=== PATIENT | male | born 1935 | race Caucasian/White ===

== ENCOUNTER 2017-09-28 12:58 | Inpatient (IN) ==
--- NOTE | 2017-09-28 13:17 | Emergency Department Note ---
Disposition Clinical Impression: Elevated troponin, Dizziness Hip fracture Qualifiers: Encounter type: initial encounter Fracture type: closed Laterality: right Qualified Code(s): S72.001A - Fracture of unspecified part of neck of right femur, initial encounter for closed fracture Disposition: Admitted As Inpatient Condition: Fair General Adult HPI - General Chief complaint: ED Fall Stated complaint: fall Time Seen by Provider: 09/28/17 13:03 Source: patient, EMS Limitations: no limitations Nursing Notes Reviewed: Yes Vital Signs Reviewed: Yes - History of Present Illness HPI Narrative: 8-year-old male presents to emergency department after having a spell of dizziness and falling. Patient states that he is chronically dizzy, and that this episode of dizziness was no different than what he has experienced in previous years. Patient states that it is worse with standing up. He denies a sensation of feeling as if the room is spinning. Patient does have a history of CHF dependent on pacemaker. Patient is currently complaining about right-sided hip pain. Patient states he cannot lift his right leg. Patient denies any dizziness at the present time. Pain Scale: 4 - Related Data Home Medications Medication Instructions Recorded Confirmed Aspirin 81 mg PO DAILY 09/28/17 09/28/17 Lisinopril [Zestril] 20 mg PO DAILY 09/28/17 09/28/17 Metoprolol Succinate [Metoprolol 25 mg PO DAILY 09/28/17 09/28/17 Succinate] Allergies Allergy/AdvReac Type Severity Reaction Status Date / Time No Known Allergies Allergy Verified 09/28/17 14:16 All systems ED: reviewed and negative except as stated. Review of Systems: As Per HPI Constitutional: Denies: fever Cardiovascular: Denies: chest pain, palpitations Gastrointestinal: Denies: abdominal pain, nausea, vomiting Genitourinary: Denies: urgency Neurological: Denies: headache Past Medical History - Past Medical History Medical history: Reports: arthritis, CHF, COPD, coronary artery disease Psychiatric history: Reports: no psych history - Social History Smoking Status: Current every day smoker Smokeless Tobacco Status: No Alcohol use: Reports: none Drug use: Reports: none Physical Exam General: 82-year-old male who appears to be mildly uncomfortable Head: autraumatic, EOMI, no conjuncitval pallor, no scleral icterus, Mouth: oral mucous membranes moist Neck: neck soft, trachea midline Chest:: Equal chest wall rise, pacemaker Lungs: Normal lungs sounds bilaterally, no wheezes, no respiratory distress Heart: Normal rate, no murmurs, rubs, gallops Abdomen: soft, non-tender, no rigidity, no guarding, no rebdound tenderness Pelvis: Tenderness to right sided pelvic compression. Patient unable to lift right leg. Lower Extremities: no pedal edema, calves non-tender Integumentary: Skin warm, dry, and intact Neuro: Alert and oriented to person, place, time, GCS 15, upper and lower extremities and sensation intact throughout, strength 5 out of 5 in the upper extremities and in the left lower extremity, patient strength is 3 out of 5 in the right lower extremity. Psych: normal affect, normal mood - General Limitations: no limitations General appearance: alert, in no apparent distress Course Vital Signs Temperature 98.1 F 09/28/17 13:01 Pulse Rate 73 09/28/17 13:01 Respiratory Rate 18 09/28/17 13:01 Blood Pressure 179/147 09/28/17 13:01 O2 Sat by Pulse Oximetry 93 09/28/17 13:01 Temperature 98.1 F 09/28/17 13:01 Pulse Rate 64 09/28/17 15:07 Respiratory Rate 16 09/28/17 15:07 Blood Pressure 194/97 09/28/17 15:07 O2 Sat by Pulse Oximetry 94 09/28/17 15:07 Oxygen Delivery Oxygen Delivery Nasal Cannula Medical Decision Making - [facility] Narrative Medical decision making narrative: 82-year-old male presents to the emergency department with concern for a hip fracture after falling. This was concerning for a hip fracture. Pelvis x-ray revealed an acute mildly displaced right subcapital femoral neck fracture. Head CT was also obtained and only revealed left parietal scalp subcutaneous density representing a contusion. Electrocardiogram did not feel any changes associated with scarbossa's criteria that would be concerning for [place]. Troponin was elevated at 0.12. Patient was hypertensive here in the emergency department, so we administered 10 mg Lopressor via IV. Dr. Hansen was consulted regarding the case and further recommendations and he wanted to have the patient admitted to the floor where he would schedule an operation. Dr. Hobbs was consulted as well with cardiology as patient had an elevated troponin of 0.12. He stated to trend the troponin. Troponin will be repeated at 1735. This study should be followed up. The case was discussed with the hospitalist, Dr. Rios. He agreed to admission for this patient. Patient and family were at bedside for discussion regarding admission. Patient was given analgesia here in the emergency department for his hip fracture. Head CT 09/28/17 13:09 IMPRESSION: 1. No acute intracranial abnormality. 2. Atrophy and extensive chronic small vessel ischemic changes. 3. Left parietal scalp subcutaneous density which may represent a contusion. D/ / 09/28/2017 15:08:19 Eloy Franco MD / Alice Borrego Interpreting Provider: Eloy Franco MD Pelvis X-Ray 09/28/17 13:12 IMPRESSION: Acute mildly displaced right subcapital femoral neck fracture. D/ / Bj Noble MD / Bj Noble MD Interpreting Provider: Bj Noble MD Chest X-Ray 09/28/17 13:26 IMPRESSION: No acute process. D/ / Bj Noble MD / Bj Noble MD Interpreting Provider: Bj Noble MD Vital Signs Temperature 98.1 F 09/28/17 13:01 Pulse Rate 73 09/28/17 13:01 Respiratory Rate 18 09/28/17 13:01 Blood Pressure 179/147 09/28/17 13:01 O2 Sat by Pulse Oximetry 93 09/28/17 13:01 Temperature 98.1 F 09/28/17 13:01 Pulse Rate 64 09/28/17 15:07 Respiratory Rate 16 09/28/17 15:07 Blood Pressure 194/97 09/28/17 15:07 O2 Sat by Pulse Oximetry 94 09/28/17 15:07 Oxygen Delivery Oxygen Delivery Nasal Cannula - Lab Data Result diagrams: 09/28/17 13:35 09/28/17 13:35 Lab Results 09/28/17 09/28/17 09/28/17 Range/Units 13:35 13:35 13:35 WBC 9.5 (4.3-11.1) K/mcL RBC 5.84 H (4.19-5.50) M/mcL Hgb 17.5 H (12.9-16.9) g/dL Hct 53.8 H (37.5-50.1) % MCV 92.1 (83.0-100.0) fL MCH 30.0 (28.0-33.3) pg MCHC 32.5 (31.6-35.5) g/dL RDW 13.7 (11.5-14.5) % Plt Count 246 (140-400) K/mcL MPV 10.2 (9.4-12.4) fL Immature Gran % 0.4 (0-4) % Seg Neutrophils % 75.0 % Lymphocytes % 12.0 % Monocytes % 8.8 % Eosinophils % 3.4 % Basophils % 0.4 % Neutrophils # 7.1 (1.6-8.9) K/mcL Lymphocytes # 1.1 (0.6-4.6) K/mcL Monocytes # 0.8 (0.0-1.3) K/mcL Eosinophils # 0.3 (0.0-0.6) K/mcL Basophils # 0.0 (0.0-0.2) K/mcL Sodium 141 (136-145) mEq/L Potassium 4.0 (3.5-4.5) mEq/L Chloride 106 (98-109) mEq/L Carbon Dioxide 23 (19-29) mEq/L BUN 17 (8-26) mg/dL Creatinine 1.04 (0.72-1.25) mg/dL Est GFR ( Amer) > 60 (> 60) Est GFR (Non-Af Amer) > 60 (> 60) BUN/Creatinine Ratio 16 (6-26) Glucose 85 (70-99) mg/dL POC Glucose (58-89) Calculated Osmolality 293 (280-300) Calcium 9.2 (8.6-10.8) mg/dL Troponin I 0.12 H* (0-0.03) ng/mL B-Natriuretic Peptide (0-100) pg/mL Urine Color (Yellow) Urine Clarity (Clear) Urine pH (5.0-8.0) pH Units Ur Specific [place] (1.010-1.025) Urine Protein (Neg-Trace) mg/dL Urine Glucose (UA) (Normal) mg/dL Urine Ketones (Negative) mg/dL Urine Blood (Negative) Urine Nitrite (Negative) Urine Bilirubin (Negative) Urine Urobilinogen (Normal) mg/dL Ur Leukocyte Esterase (Negative) Urine Microscopic RBC (0-3) per hpf Urine Microscopic WBC (0-3) per hpf Ur Squamous Epith Cells (None-Few) per lpf Urine Bacteria (None-Few) per hpf Hyaline Casts (None-Few) per lpf Ur Culture Indicated? (NO) 09/28/17 09/28/17 09/28/17 Range/Units 13:35 13:38 13:47 WBC (4.3-11.1) K/mcL RBC (4.19-5.50) M/mcL Hgb (12.9-16.9) g/dL Hct (37.5-50.1) % MCV (83.0-100.0) fL MCH (28.0-33.3) pg MCHC (31.6-35.5) g/dL RDW (11.5-14.5) % Plt Count (140-400) K/mcL MPV (9.4-12.4) fL Immature Gran % (0-4) % Seg Neutrophils % % Lymphocytes % % Monocytes % % Eosinophils % % Basophils % % Neutrophils # (1.6-8.9) K/mcL Lymphocytes # (0.6-4.6) K/mcL Monocytes # (0.0-1.3) K/mcL Eosinophils # (0.0-0.6) K/mcL Basophils # (0.0-0.2) K/mcL Sodium (136-145) mEq/L Potassium (3.5-4.5) mEq/L Chloride (98-109) mEq/L Carbon Dioxide (19-29) mEq/L BUN (8-26) mg/dL Creatinine (0.72-1.25) mg/dL Est GFR ( Amer) (> 60) Est GFR (Non-Af Amer) (> 60) BUN/Creatinine Ratio (6-26) Glucose (70-99) mg/dL POC Glucose 83 (58-89) Calculated Osmolality (280-300) Calcium (8.6-10.8) mg/dL Troponin I (0-0.03) ng/mL B-Natriuretic Peptide 712 H (0-100) pg/mL Urine Color Yellow (Yellow) Urine Clarity Clear (Clear) Urine pH 6.0 (5.0-8.0) pH Units Ur Specific [place] 1.015 (1.010-1.025) Urine Protein 30 H (Neg-Trace) mg/dL Urine Glucose (UA) Normal (Normal) mg/dL Urine Ketones Negative (Negative) mg/dL Urine Blood Small H (Negative) Urine Nitrite Negative (Negative) Urine Bilirubin Negative (Negative) Urine Urobilinogen Normal (Normal) mg/dL Ur Leukocyte Esterase Negative (Negative) Urine Microscopic RBC 3-5 H (0-3) per hpf Urine Microscopic WBC 0-3 (0-3) per hpf Ur Squamous Epith Cells Moderate H (None-Few) per lpf Urine Bacteria None Seen (None-Few) per hpf Hyaline Casts None Seen (None-Few) per lpf Ur Culture Indicated? NO (NO) - EKG Data EKG #1 EKG attestation: Yes I reviewed and interpreted this EKG. EKG results narrative: 13:09 Ventricular rate 62 bpm, QRS duration 204 ms, QT 473 ms, QTC 479 ms, left axis deviation. Electronic ventricle paced rhythm at 62 bpm. There was no paced rhythm on the previous electrocardiogram performed on February 28, 2010.
[2017-09-28 13:40] LABS: Basophils % 0.4 %; Eosinophils # 0.3 K/mcL (0.0-0.6); Eosinophils % 3.4 %; Hematocrit 53.8 % (37.5-50.1); Hemoglobin 17.5 g/dL (12.9-16.9); Immature Granulocytes % 0.4 % (0-4); Lymphocytes # 1.1 K/mcL (0.6-4.6); Mean Corpuscular HGB Conc 32.5 g/dL (31.6-35.5); Mean Corpuscular Volume 92.1 fL (83.0-100.0); Mean Platelet Volume 10.2 fL (9.4-12.4); Monocytes # 0.8 K/mcL (0.0-1.3); Monocytes % 8.8 %; Neutrophils # 7.1 K/mcL (1.6-8.9); Platelet Count 246 K/mcL (140-400); Red Blood Count 5.84 M/mcL (4.19-5.50); Red Cell Distribution Width 13.7 % (11.5-14.5)
[2017-09-28 13:51] LABS: BUN/Creatinine Ratio 16 (6-26); Blood Urea Nitrogen 17 mg/dL (8-26); Calcium 9.2 mg/dL (8.6-10.8); Carbon Dioxide 23 mEq/L (19-29); Chloride 106 mEq/L (98-109); Glucose 85 mg/dL (70-99); Osmolality,Calculated 293 (280-300); Sodium 141 mEq/L (136-145); eGFR For African Americans > 60 (> 60); eGFR For Non-African Americans > 60 (> 60)
[2017-09-28] MEDS ORDERED: *HR* Morphine 2 MG/ML SYRINGE IVP ONE ×2 (13:53→17:09)
[2017-09-28 13:57] LABS: Bilirubin,Urine Negative (Negative); Blood,Urine Small (Negative); Clarity,Urine Clear (Clear); Color,Urine Yellow (Yellow); Glucose,Urine (UA) Normal (Normal); Ketones,Urine Negative (Negative); Leukocyte Esterase,Urine Negative (Negative); Nitrite,Urine Negative (Negative); Protein,Urine 30 mg/dL (Neg-Trace); Specific Gravity,Urine 1.015 (1.010-1.025); Urobilinogen,Urine Normal (Normal)
[2017-09-28 13:59] LABS: Bacteria,Urine None Seen per hpf (None-Few); Hyaline Casts,Urine None Seen per lpf (None-Few); Squamous Epithelial Cell,Urine Moderate per lpf (None-Few); WBC,Urine 0-3 per hpf (0-3)
[2017-09-28] MEDS ORDERED: Aspirin 81 MG TAB.CHEW PO ONE (14:01)
--- NOTE | 2017-09-28 15:04 | Emergency Department Note ---
START Narrative - START START: I examined this patient and my medical decision-making was reviewed with the Resident Physician. I agree with the documented findings, disposition and treatment plan as described except to the extent set forth below. 82 year old male [facility] and states that he injured his right hip and cannot walk on it currently. Patinet states that he did not hit his head or neck and denies headache or neck pain. It appears roxana has an eelvated troponin of 0.12, and we do not have a value to compare it too in addition to an acute mildly displaced subcapital femoral neck fractre. We will admit to ana cristina neely consult to ortho.
[2017-09-28] MEDS ORDERED: *HR* Metoprolol 5 MG/5 ML VIAL IVP ONE (15:20)
[2017-09-28] MEDS ORDERED: Ondansetron 4 MG/2 ML VIAL IVP PRN (17:50)
[2017-09-28] MEDS ORDERED: Naloxone 0.4 MG/ML INJ IVP PRN (17:50)
[2017-09-28] MEDS ORDERED: *HR* HYDROcodone/Acet 5/325 mg TABLET PO PRN (17:50)
[2017-09-28] MEDS ORDERED: Acetaminophen 325 MG TABLET PO PRN (17:50)
[2017-09-28] MEDS ORDERED: Nitroglycerin 0.4 MG TAB.SUBL SL PRN (18:02)
--- NOTE | 2017-09-28 18:05 | Internal Med History&Physical ---
<Jax Martinez - Last Filed: 09/28/17 18:40> Date of Encounter: 09/28/17 Time of Encounter: 17:00 Assessment and Plan (1) Hip fracture Current visit: Yes Status: Acute Acute hip fracture d/t fall today. Pt. reports he has chronic dizziness and became dizzy today and fell on his right hip. 1-View XR of the pelvis today shows acute mildly displaced right subcapital femoral neck fracture. Bilateral sacroiliac joints and pubis symphysis are intact. Mild degenerative changes of the visualized lower lumbar spine. Stair-step pain medication ordered for pain mgmt. Falls/safety precautions. Bed rest for now. PT/OT consults ordered for post-surgery assessment and post-discharge planning. Orthopedic surgery consult ordered. Pt. is at high risk for further morbidity d/t hip fx, hx of dizziness and falls, elevated troponin, and risk factors. Inpatient. Qualifiers: Encounter type: initial encounter Fracture type: closed Laterality: right Qualified Code(s): S72.001A - Fracture of unspecified part of neck of right femur, initial encounter for closed fracture (2) Elevated troponin Current visit: Yes Status: Acute Acutely elevated troponin of 0.12 on admission. Pt. denies chest pain or cardiac sx. Pt. has electronic pacemaker in place. Will trend x3. Continuous cardiac telemetry. Cardiology consult ordered. Patient to be monitored closely. (3) Dizziness Current visit: Yes Status: Acute Acute on chronic dizziness. Pt. reports he is chronically dizzy and became dizzy today and fell hitting his right hip. Falls/safety precautions. Bilateral carotid Doppler duplex imaging ordered to r/o blockages d/t chronic dizziness. Continuous cardiac telemetry. Supplemental O2 and SpO2 monitoring. (4) CHF (congestive heart failure) Current visit: Yes Status: Chronic Hx of chronic CHF. BNP is currently 712 but pt. states he is not SOB, lungs clear on auscultation, pt. does not appear to be fluid overloaded, and no pedal edema present. Will administer lasix PO if necessary. Supplemental O2 w/ titration and SpO2 monitoring. Continuous cardiac telemetry. Qualifiers: Congestive heart failure type: unspecified congestive heart failure type Congestive heart failure chronicity: chronic Qualified Code(s): I50.9 - Heart failure, unspecified (5) COPD (chronic obstructive pulmonary disease) Current visit: Yes Status: Chronic Hx of chronic COPD. Stable. Pt. denies SOB. Supplemental O2 w/titration and SpO2 monitoring. DuoNebs Q6 PRN. Qualifiers: COPD type: emphysema Emphysema type: unspecified Qualified Code(s): J43.9 - Emphysema, unspecified (6) CAD (coronary artery disease) Current visit: Yes Status: Chronic Hx of chronic CAD. Continuous cardiac telemetry. Will continue patient's metoprolol, lisinopril, and aspirin therapy. Qualifiers: Coronary Disease-Associated Artery/Lesion type: [place] artery [place] vs. transplanted heart: [place] heart Associated angina: angina presence unspecified Qualified Code(s): I25.10 - Atherosclerotic heart disease of [place] coronary artery without angina pectoris (7) DVT prophylaxis Current visit: Yes Status: Acute Bilateral SCDs on LEs for DVT prophylaxis. Pharmacologic DVT prophylaxis contraindicated d/t possible surgical intervention for hip fx in a.m. Internal Medicine - H&P: HPI Chief complaint: Fall w/Rt. Hip Pain Admitted From: Emergency Dept Plans for Post Hospital Care: Home History of present illness: Mr. Sánchez is a 82 year old male with medical hx of arthritis, CHF, COPD, and CAD presents from the ED with chief complaint right hip pain after falling today. Patient states he became dizzy with standing and felt as though the room is spinning and fell. He states he cannot raise his right leg and his pain level is a 6/10. States morphine helped. He also reports he is chronically dizzy which is worsened over the past few years. Patient reports he is a current smoker smoking 1 pack per week and drinks beer occasionally. Also reports he is very hard of hearing. Patient denies recent illness, fever, chills , nausea, vomiting, changes in vision, unusual bleeding, chest pain, palpitations, abdominal pain, headache, diarrhea, constipation, numbness, tingling, pre-syncope, or syncope. Past Med Surg Social Fam HX - Past Medical History Source: patient, old records reviewed Medical history: arthritis, CHF, COPD, coronary artery disease Psychiatric history: no psych history - Social History Smoking Status: Current every day smoker Packs per day: 1 PPW Smokeless Tobacco Status: No Alcohol use: none Drug use: none Current living situation: Home Activity Level: Independent ambulation Recent Out of Country Travel Within the Last 8 Weeks: No Exposure or Possible Exposure to Illness During Travel: No - Family History Father Race: Family Member Ethnicity: Non- Living Status: Age at : 32 Cause of : Car Accident Mother Race: Family Member Ethnicity: Non- Living Status: Age at : 52 Cause of : Accident Brother Race: Family Member Ethnicity: Non- Living Status: Age at : 68 Cause of : ID Hx Family Cardiac Disorders: Yes (CAD, ID) Internal Medicine - H&P: Meds Aspirin 81 mg PO DAILY 09/28/17 [History] Lisinopril [Zestril] 20 mg PO DAILY 09/28/17 [History] Metoprolol Succinate [Metoprolol Succinate] 25 mg PO DAILY 09/28/17 [History] 3 Allergy/AdvReac Type Severity Reaction Status Date / Time No Known Allergies Allergy Verified 09/28/17 14:16 All Systems PM: A 10-system review of systems was performed and is negative for pertinent findings except as documented above in the HPI. - Constitutional Constitutional: as per HPI, falls, no chills, no fever(s), no night sweats - EENT Eyes: no change in vision, no discharge, no pain, no photophobia Ears: as per HPI, decreased hearing, no ear discharge, no ear pain, no tinnitus Nose, mouth and throat: no dysphagia, no nasal discharge, no neck pain, no sore throat - Breasts Breasts: as per HPI - Cardiovascular Cardiovascular ROS IM: no chest pain, no diaphoresis, no dyspnea, no lightheadedness, no palpitations, no syncope - Respiratory Respiratory: no cough, no dyspnea, no wheezing, no excessive phlegm production - Gastrointestinal Gastrointestinal: no abdominal pain, no diarrhea, no hematemesis, no hematochezia, no melena, no nausea, no vomiting - Genitourinary Genitourinary ROS male: as per HPI - Musculoskeletal Musculoskeletal ROS IM: no numbness, no tingling - Integumentary Integumentary IM: no rash, no unusual bruising - Neurological Neurological ROS: no confusion, no convulsions, no focal weakness, no numbness, no tingling, no tremor(s) - Psychiatric Psychiatric: as per HPI - Endocrine Endocrine IM: as per HPI - Hematologic/Lymphatic Hematologic/Lymphatic: no easy bruising - Allergic/Immunologic Allergic/Immunologic: as per HPI - Constitutional Vitals: Temp Pulse Resp BP Pulse Ox 98.6 F 71 16 184/86 96 09/28/17 16:25 09/28/17 16:25 09/28/17 16:25 09/28/17 16:25 09/28/17 16:25 General appearance: Present: cooperative, mild distress, A&O X 3, pleasant, answers questions appropriately - Head Head exam: Present: atraumatic, normal inspection, normocephalic - Eye Eye exam: Present: PERRL, conjuntiva pink, sclera anicteric Pupils: Present: PERRL - ENT ENT exam: Present: normal exam - Neck Neck exam general surgery: Present: normal inspection, supple, trachea midline. Absent: lymphadenopathy - Respiratory Respiratory exam: Present: CTAB. Absent: accessory muscle use, rales, rhonchi, wheezes - Cardiovascular Cardiovascular exam: Present: irregular rhythm (Electronic pacemaker) - GI/Abdominal GI/Abdominal exam: Present: normal bowel sounds, soft, no peritoneal signs. Absent: distended, tenderness - Rectal Rectal exam: Present: deferred - Additional comments: exam deferred. - Extremities Exam Extremities exam: Present: warm, radial pulses palpable and symmetrical. Absent : calf tenderness, cyanotic, pedal edema - Back Exam Back exam: Present: normal inspection - Neurological Exam Neurological exam: Present: CN II-XII intact, oriented X3, no focal deficits. Absent: pronater drift, facial droop, speech deficit - Psychiatric Psychiatric exam: Present: normal affect, normal mood - Skin Skin exam: Present: dry, intact Internal Med - H&P Results - Labs CBC & Chem 7: 09/28/17 13:35 09/28/17 13:35 - EKG Data Prior EKG available for review: yes EKG comments: 09/28/17 18:15 EKG dated 02/28/10 shows marked sinus bradycardia, left axis deviation, or RBBB left anterior fascicular block, possible old inferior myocardial infarction, lateral ST changes are nonspecific. EKG dated 09/28/17 shows electronic ventricular pacemaker and abnormal ECG. - Diagnostic Studies Other Images Additional comments: Impressions Pelvis X-Ray 09/28/17 13:12 IMPRESSION: Acute mildly displaced right subcapital femoral neck fracture. D/ / Bj Noble MD / Bj Noble MD Interpreting Provider: Bj Noble MD Chest x-ray Additional comments: Impressions Chest X-Ray 09/28/17 13:26 IMPRESSION: No acute process. D/ / Bj Noble MD / Bj Noble MD Interpreting Provider: Bj Noble MD CT scan - head Additional comments: Impressions Head CT 09/28/17 13:09 IMPRESSION: 1. No acute intracranial abnormality. 2. Atrophy and extensive chronic small vessel ischemic changes. 3. Left parietal scalp subcutaneous density which may represent a contusion. D/ / 09/28/2017 15:08:19 Eloy Franco MD / Alice Borrego Interpreting Provider: Eloy Franco MD <Hunter Smart P - Last Filed: 09/29/17 23:18> Date of Encounter: 09/29/17 Assessment and Plan (1) Subcapital fracture of neck of right femur Current visit: Yes Status: Acute Qualifiers: Encounter type: initial encounter Fracture type: closed Qualified Code(s) : S72.011A - Unspecified intracapsular fracture of right femur, initial encounter for closed fracture (2) Elevated troponin Current visit: Yes Status: Acute (3) HTN (hypertension) Current visit: Yes Status: Acute Qualifiers: Hypertension type: unspecified Qualified Code(s): I10 - Essential (primary ) hypertension (4) CAD (coronary artery disease) Current visit: Yes Status: Chronic Qualifiers: Coronary Disease-Associated Artery/Lesion type: [place] artery [place] vs. transplanted heart: [place] heart Associated angina: angina presence unspecified Qualified Code(s): I25.10 - Atherosclerotic heart disease of [place] coronary artery without angina pectoris (5) COPD (chronic obstructive pulmonary disease) Current visit: Yes Status: Chronic Qualifiers: COPD type: emphysema Emphysema type: unspecified Qualified Code(s): J43.9 - Emphysema, unspecified (6) DVT prophylaxis Current visit: Yes Status: Acute Internal Medicine - H&P: [facility] History of present illness: Mr. Sánchez is a 82 year old male All Systems PM: A 10-system review of systems was performed and is negative for pertinent findings except as documented above in the HPI. - Constitutional Vitals: Temp Pulse Resp BP Pulse Ox 97.4 F L 64 16 156/82 96 09/29/17 20:05 09/29/17 20:05 09/29/17 20:05 09/29/17 20:05 09/29/17 20:05 Internal Med - H&P Results - Labs CBC & Chem 7: 09/29/17 00:39 09/29/17 00:39 Labs: Short CBC 09/29/17 Range/Units 00:39 WBC 13.1 H (4.3-11.1) K/mcL Hgb 16.9 (12.9-16.9) g/dL Hct 51.1 H (37.5-50.1) % Plt Count 217 (140-400) K/mcL Neutrophils # 10.4 H (1.6-8.9) K/mcL BMP 09/29/17 00:39 Sodium 140 Potassium 4.2 Chloride 105 Carbon Dioxide 25 BUN 19 Creatinine 0.96 Glucose 95 Calcium 9.2 Cardiac Enzymes 09/29/17 09/29/17 Range/Units 00:39 05:43 Troponin I 0.14 H* 0.14 H* (0-0.03) ng/mL Liver Function 09/29/17 Range/Units 00:39 Total Bilirubin 2.8 H (0.2-1.2) mg/dL AST 25 (5-34) Units/L ALT 28 (0-55) Units/L Alkaline Phosphatase 97 (38-126) Units/L Albumin 3.3 L (3.5-5.0) g/dL - Impressions ITS Impressions Hip X-Ray 09/29/17 17:30 IMPRESSION: Uncomplicated right hip hemiarthroplasty. D/ / 09/29/2017 17:54:01 Ayan Page MD / chan Interpreting Provider: Ayna Page MD - Attending Attestation I examined this patient and my medical decision-making was reviewed with the Resident Physician/MEDICAL INTERN. I agree with the documented findings, disposition and treatment plan as described except to the extent set forth below. patient seen and examined. chart reviewed. agree with MEDICAL INTERN findings
[2017-09-28] MEDS ORDERED: Ipratropium/Albuterol Neb 3 ML IH PRN (18:27)
--- NOTE | 2017-09-28 21:11 | Orthopedic Consult Note ---
Date of Encounter: 09/28/17 Time of Encounter: 16:00 Assessment and Plan (1) Hip fracture Current Visit: Yes Status: Acute I did discuss the diagnosis and treatment plan with Florian and his family. We discussed operative and non-operative treatment options. He is a community ambulator who typically walks with a cane. For pain control and ambulation post operatively we recommended surgical fixation with hemiarthroplasty of the right hip. We discussed the risks and benefits of surgery including but not limited to infection, blood loss, failure of surgery, DVT, PE, CT, and . He understands the risks and has elected to proceed. NPO at [place] Plan for hip hemiarthroplasty tomorrow pending medical clearance Bedrest until surgery Qualifiers: Encounter type: initial encounter Fracture type: closed Laterality: right Qualified Code(s): S72.001A - Fracture of unspecified part of neck of right femur, initial encounter for closed fracture History of Present Illness Chief complaint: R hip pain HPI: Mr. Sánchez is a 82 year old male who sustained a mechanical fall on his right hip today. Developed right hip pain and inability to ambulate. Denies any CP or blacking out prior to fall. No other extremity pain. No N/T distally. Past Med Surg Social Fam HX - Past Medical History Medical history: arthritis, CHF, COPD, coronary artery disease Psychiatric history: no psych history - Past Surgical History Surgical History: pacemaker - Social History Smoking Status: Current every day smoker Packs per day: 1 PPW Smokeless Tobacco Status: No Alcohol use: none Drug use: none - Family History Father Race: Family Member Ethnicity: Non- Living Status: Age at : 32 Cause of : Car Accident Mother Race: Family Member Ethnicity: Non- Living Status: Age at : 52 Cause of : Accident Brother Race: Family Member Ethnicity: Non- Living Status: Age at : 68 Cause of : CT Hx Family Cardiac Disorders: Yes (CAD, CT) Medications and Allergies Aspirin 81 mg PO DAILY 09/28/17 [History] Lisinopril [Zestril] 20 mg PO DAILY 09/28/17 [History] Metoprolol Succinate [Metoprolol Succinate] 25 mg PO DAILY 09/28/17 [History] 3 Allergy/AdvReac Type Severity Reaction Status Date / Time No Known Allergies Allergy Verified 09/28/17 14:16 All Systems Reviewed: A 10-system review of systems was performed and is negative for pertinent findings except as documented above in the HPI. Physical Exam - Constitutional Vitals: Temp Pulse Resp BP Pulse Ox 99.3 F 64 17 160/72 94 09/28/17 19:39 09/28/17 19:39 09/28/17 19:39 09/28/17 19:39 09/28/17 19:39 General appearance IM: A&O X 3 Exam: Constitutional -Vitals reviewed -The patient is well developed and well nourished. -Mood is pleasant. -The patient is well groomed. Psychiatric -The patient is fully alert and oriented x 3. Respiratory: -Respiratory effort normal Abdomen: -Soft abdomen -Non tender -Non distended: Left upper extremity: -No deformities. The overlying skin is intact. No obvious signs of acute trauma. -No tenderness to palpation throughout. -No significant pain with passive motion of the shoulder, elbow, wrist, and fingers within the limits of the bed. -Able to make an "OK" sign, cross the index and long fingers, and extend the thumb. -Sensation grossly intact to light touch throughout the median, radial, and ulnar distributions. -Radial pulse is present; Fingers have good capillary refill. Right upper extremity: -No deformities. The overlying skin is intact. No obvious signs of acute trauma. -No tenderness to palpation throughout. -No significant pain with passive motion of the shoulder, elbow, wrist, and fingers within the limits of the bed. -Able to make an "OK" sign, cross the index and long fingers, and extend the thumb. -Sensation grossly intact to light touch throughout the median, radial, and ulnar distributions. -Radial pulse is present; Fingers have good capillary refill. Left lower extremity: -No deformities. The overlying skin is intact. No obvious signs of acute trauma. -No tenderness to palpation throughout. -No pain with passive motion of the hip, knee, ankle, and toes within the limits of the bed. -No pain with axial loading of the thigh. -Able to dorsiflex and plantarflex the ankle and toes. -Sensation is grossly intact to light touch throughout the sural, saphenous, superficial peroneal, and deep peroneal distributions. -Toes have good capillary refill. Right lower extremity: -Short/ER. +Log roll/IR -No pain with passive motion of the knee, ankle, and toes within the limits of the bed. -Able to dorsiflex and plantarflex the ankle and toes. -Sensation is grossly intact to light touch throughout the sural, saphenous, superficial peroneal, and deep peroneal distributions. -Toes have good capillary refill. Results - Labs Result Diagrams: 09/28/17 13:35 09/28/17 13:35 Labs: Abnormal lab results RBC 5.84 M/mcL (4.19-5.50) H 09/28/17 13:35 Hgb 17.5 g/dL (12.9-16.9) H 09/28/17 13:35 Hct 53.8 % (37.5-50.1) H 09/28/17 13:35 Troponin I 0.14 ng/mL (0-0.03) H* 09/28/17 18:07 B-Natriuretic Peptide 712 pg/mL (0-100) H 09/28/17 13:35 Urine Protein 30 mg/dL (Neg-Trace) H 09/28/17 13:47 Urine Blood Small (Negative) H 09/28/17 13:47 Urine Microscopic RBC 3-5 per hpf (0-3) H 09/28/17 13:47 Ur Squamous Epith Cells Moderate per lpf (None-Few) H 09/28/17 13:47 All other labs normal. - Diagnostic results Hip x-ray: image reviewed (Displaced R femoral neck fx) Consult Discharge Plan - Plan Referrals: Ethan Lam MD [Primary Care Provider] -
[2017-09-28] MEDS: *HR* Morphine 2 MG/ML SYRINGE IVP PRN (22:00)
[2017-09-29 00:51] LABS: Basophils % 0.3 %; Eosinophils # 0.3 K/mcL (0.0-0.6); Eosinophils % 2.5 %; Hematocrit 51.1 % (37.5-50.1); Hemoglobin 16.9 g/dL (12.9-16.9); Immature Granulocytes % 0.5 % (0-4); Immature Platelets 5.4 % (1.1-6.1); Lymphocytes % 7.8 %; Mean Corpuscular HGB Conc 33.1 g/dL (31.6-35.5); Mean Corpuscular Hemoglobin 30.7 pg (28.0-33.3); Mean Corpuscular Volume 92.7 fL (83.0-100.0); Mean Platelet Volume 10.2 fL (9.4-12.4); Monocytes # 1.2 K/mcL (0.0-1.3); Monocytes % 9.3 %; Neutrophils # 10.4 K/mcL (1.6-8.9); Platelet Count 217 K/mcL (140-400); Red Blood Count 5.51 M/mcL (4.19-5.50); Red Cell Distribution Width 13.8 % (11.5-14.5); Segmented Neutrophils % 79.6 %
[2017-09-29 00:55] LABS: INR 1.2; Prothrombin Time 13.5 Seconds (9.4-12.1)
[2017-09-29 01:04] LABS: Activated Partial Thrombo Time 31.6 Seconds (26.0-36.0)
[2017-09-29 01:08] LABS: Alanine Aminotransferase 28 Units/L (0-55); Albumin 3.3 g/dL (3.5-5.0); Alkaline Phosphatase 97 Units/L (38-126); Aspartate Amino Transferase 25 Units/L (5-34); BUN/Creatinine Ratio 20 (6-26); Blood Urea Nitrogen 19 mg/dL (8-26); Calcium 9.2 mg/dL (8.6-10.8); Carbon Dioxide 25 mEq/L (19-29); Chloride 105 mEq/L (98-109); Chol/HDL Ratio 3.1 (0-4.9); Cholesterol 151 mg/dL (< 200); Globulin 3.3 g/dL (2.4-3.5); Glucose 95 mg/dL (70-99); HDL Cholesterol 48 mg/dL (40-59); LDL Cholesterol,Calculated 88 mg/dL (0-99); Magnesium 2.1 mg/dL (1.6-2.6); Osmolality,Calculated 292 (280-300); Potassium 4.2 mEq/L (3.5-4.5); Sodium 140 mEq/L (136-145); Total Protein 6.6 g/dL (6.0-8.3); Triglycerides 74 mg/dL (< 150); eGFR For African Americans > 60 (> 60); eGFR For Non-African Americans > 60 (> 60)
[2017-09-29 01:09] LABS: Bilirubin,Total 2.8 mg/dL (0.2-1.2)
[2017-09-29] MEDS: *HR* Morphine 2 MG/ML SYRINGE IVP PRN ×2 (04:57→09:33)
--- NOTE | 2017-09-29 08:05 | Orthopedics Progress Note ---
Date of Encounter: 09/29/17 Time of Encounter: 08:02 - Assessment and Plan (1) Hip fracture Current Visit: Yes Status: Acute Qualifiers: Encounter type: initial encounter Fracture type: closed Laterality: right Qualified Code(s): S72.001A - Fracture of unspecified part of neck of right femur, initial encounter for closed fracture Subjective Principal diagnosis: R hip fracture Interval history: S: R hip pain. No new ortho complaints. No CP/SOB O: AFVSS GEN: NAD RLE: Short/ER +log roll/IR DNVI 82 yo M with R displaced FNFx -NPO -Plan for OR today for hemiarthroplasty -Bedrest until OR -Consent signed Objective Vital signs: Vital Signs Temp Pulse Resp BP Pulse Ox 09/29/17 06:23 98.6 F 96 18 137/83 98 09/29/17 04:08 98.6 F 58 18 155/78 94 09/29/17 00:26 98.7 F 79 18 109/74 94 09/28/17 19:39 99.3 F 64 17 160/72 94 Intake and Output 09/28/17 09/29/17 09/29/17 23:59 07:59 15:59 Output Total 250 / 250 Balance -250 / -250 Output: Urine 250 / 250 Other: Meal NPO # Voids 1 # Urine Diapers 1 1 # Bowel Movements 0 Weight 82.6 kg Blood Glucose* 94 Patient Weight 09/29/17 23:59 Weight 82.6 kg - Labs CBC & BMP: 09/29/17 00:39 09/29/17 00:39 Labs: Abnormal lab results WBC 13.1 K/mcL (4.3-11.1) H 09/29/17 00:39 RBC 5.51 M/mcL (4.19-5.50) H 09/29/17 00:39 Hct 51.1 % (37.5-50.1) H 09/29/17 00:39 Neutrophils # 10.4 K/mcL (1.6-8.9) H 09/29/17 00:39 PT 13.5 Seconds (9.4-12.1) H 09/29/17 00:39 POC Glucose 94 (58-89) H 09/29/17 05:19 Total Bilirubin 2.8 mg/dL (0.2-1.2) H 09/29/17 00:39 Troponin I 0.14 ng/mL (0-0.03) H* 09/29/17 05:43 B-Natriuretic Peptide 712 pg/mL (0-100) H 09/28/17 13:35 Albumin 3.3 g/dL (3.5-5.0) L 09/29/17 00:39 Albumin/Globulin Ratio 1.0 (1.1-2.2) L 09/29/17 00:39 Urine Protein 30 mg/dL (Neg-Trace) H 09/28/17 13:47 Urine Blood Small (Negative) H 09/28/17 13:47 Urine Microscopic RBC 3-5 per hpf (0-3) H 09/28/17 13:47 Ur Squamous Epith Cells Moderate per lpf (None-Few) H 09/28/17 13:47 Consult Discharge Plan - Plan Referrals: Ethan Lam MD [Primary Care Provider] -
[2017-09-29] MEDS ORDERED: Aspirin 81 MG TAB.CHEW PO SCH (09:00)
[2017-09-29] MEDS ORDERED: Lisinopril 20 MG TABLET PO SCH (09:00)
[2017-09-29] MEDS ORDERED: Metoprolol XL (24 HR) Succ 25 MG TAB.ER.24H PO SCH (09:00)
--- NOTE | 2017-09-29 11:15 | Cardiology Consult Note ---
Date of Encounter: 09/29/17 Time of Encounter: 08:30 Assessment and Plan (1) Elevated troponin Current Visit: Yes Status: Acute Elevated troponin in setting of fall without st segment signs of ischemia. P: Continue trending troponin to establish peak (currently x3 .14), telemetry. (2) Presence of cardiac pacemaker Current Visit: Yes Status: Acute Medtronic pacemaker (Versa [id number]) implanted 2009, dual-chamber Interrogation data: 96% pacing uptime, currently a-flutter, 2.5 years est remaining battery life (3) Systolic dysfunction Current Visit: Yes Status: Acute Echocardiogram performed 08/03/17 ordered by PCP due to murmur workup. LVEF 40-45% Abnormal regional wall motion; suggestive of mod-severe CAD. Mod-severe aortic stenosis P: LINNEA and cath in near future with [place] cardiology (4) Aortic stenosis Current Visit: Yes Status: Acute As above regarding echo results, recommend LINNEA for better resolution of valve/ leaflets Qualifiers: Cardiac valve disease etiology: nonrheumatic Qualified Code(s): I35.0 - Nonrheumatic aortic (valve) stenosis (5) Atrial flutter Current Visit: Yes Status: Acute Continue current beta-blockade. ECG suggests ventricular rate <75; maintain ventricular rate goal of <75, currently hemodynamically stable with normal pressures, no edema. Continue to monitor in-patient. Qualifiers: Atrial flutter type: unspecified Qualified Code(s): I48.92 - Unspecified atrial flutter (6) Subcapital fracture of neck of right femur Current Visit: Yes Status: Acute High risk patient based on existence of mod-severe aortic stenosis, systolic dysfunction EF 40-45%, inferio-lateral hypokinesis Estimated METs of 4 P: Recommend continuing ASA during procedure. Qualifiers: Encounter type: initial encounter Fracture type: closed Qualified Code(s) : S72.011A - Unspecified intracapsular fracture of right femur, initial encounter for closed fracture (7) CAD (coronary artery disease) Current Visit: Yes Status: Chronic Chronic condition, continue home meds. Likely contributor to wall motion abnormalities. P: Pt candidate for catheterization. Qualifiers: Coronary Disease-Associated Artery/Lesion type: [place] artery [place] vs. transplanted heart: [place] heart Associated angina: angina presence unspecified Qualified Code(s): I25.10 - Atherosclerotic heart disease of [place] coronary artery without angina pectoris (8) HTN (hypertension) Current Visit: Yes Status: Acute Continue metoprolol succinate and lisinopril. Indications for pt: a-flutter, bp control, kidney protection, cardioprotection. Qualifiers: Hypertension type: unspecified Qualified Code(s): I10 - Essential (primary ) hypertension (9) COPD (chronic obstructive pulmonary disease) Current Visit: Yes Status: Chronic Continue duonebs in-patient, nasal cannula 2L, ~94 saturation Consider smoking cessation. Qualifiers: COPD type: emphysema Emphysema type: unspecified Qualified Code(s): J43.9 - Emphysema, unspecified (10) DVT prophylaxis Current Visit: Yes Status: Acute Continue intermittent pneumatic compression. Discussion w patient/family: The assessment and plan as outlined above was discussed with the patient and/or family members who expressed understanding and agreement. All questions were answered. Thank you for involving us in the care of your patient. Please call with any questions. 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 Fall was witnessed, patient reports feeling dizzy after getting up, endorses room spinning, and subsequently falling. XR pelvis shows mild displaced femoral neck fracture. Consulted for elevated troponin of .12, .14, .14, .14. Patient is an assisted living resident, alert and oriented x3 however is a limited historian regarding cardiac history/does not have a director of healthcare systems/has not had a pacemaker interrogation since year of implantation. Patient denies loss of consciousness. Denies lightheadedness, head trauma, shortness of breath, or chest pain. Past Med Surg Social Fam HX - Past Medical History Medical history: arthritis, CHF, COPD, coronary artery disease Psychiatric history: no psych history - Past Surgical History Surgical History: pacemaker - Social History Smoking Status: Current every day smoker Packs per day: 1 PPW Smokeless Tobacco Status: No Alcohol use: none Drug use: none - Family History Father Race: Family Member Ethnicity: Non- Living Status: Age at : 32 Cause of : Car Accident Mother Race: Family Member Ethnicity: Non- Living Status: Age at : 52 Cause of : Accident Brother Race: Family Member Ethnicity: Non- Living Status: Age at : 68 Cause of : [place] Hx Family Cardiac Disorders: Yes (CAD, [place]) Medications and Allergies Aspirin 81 mg PO DAILY 09/28/17 [History] Lisinopril [Zestril] 20 mg PO DAILY 09/28/17 [History] Metoprolol Succinate [Metoprolol Succinate] 25 mg PO DAILY 09/28/17 [History] 3 Allergy/AdvReac Type Severity Reaction Status Date / Time No Known Allergies Allergy Verified 09/28/17 14:16 All Systems Review: A 10-system review of systems was performed and is negative for pertinent findings except as documented above in the HPI. - Constitutional Constitutional: other (single fall, dizziness on standing), no fever(s), no headache(s), no weakness - Cardiovascular Cardiovascular: lightheadedness (on standing), no chest pain at rest, no chest pain with exertion - Respiratory Respiratory: no cough, no dyspnea - Musculoskeletal Musculoskeletal: other (R leg pain s/p fall) - Neurological Neurological: no focal weakness, no numbness, no syncope, no tingling Physical Examination General: Conversant, Other (hard of hearing) HEENT: Atraumatic Neck: Other (no carotid bruits, no JVD, no thyromegaly) Cardiac: Other (irregular rhythm) Lungs: Other (normal chest wall excursion, no wheeze, rales, or rhonchi, clear bilaterally) Extremities: Other (intact dorsalis pedis pulses bilaterally, no edema, intact sensation) Results 09/29/17 00:39 09/29/17 00:39 Lab Results 09/28/17 09/29/17 09/29/17 18:07 00:39 00:39 WBC 13.1 H Hgb 16.9 Hct 51.1 H Plt Count 217 INR APTT Sodium Potassium Chloride Carbon Dioxide BUN Creatinine Glucose Calcium Magnesium Total Bilirubin AST ALT Alkaline Phosphatase Troponin I 0.14 H* 0.14 H* 09/29/17 09/29/17 09/29/17 00:39 00:39 05:43 WBC Hgb Hct Plt Count INR 1.2 APTT 31.6 Sodium 140 Potassium 4.2 Chloride 105 Carbon Dioxide 25 BUN 19 Creatinine 0.96 Glucose 95 Calcium 9.2 Magnesium 2.1 Total Bilirubin 2.8 H AST 25 ALT 28 Alkaline Phosphatase 97 Troponin I 0.14 H* Consult Discharge Plan - Plan Referrals: Ethan Lam MD [Primary Care Provider] -
--- NOTE | 2017-09-29 13:55 | Anesthesia Evaluation PreOp ---
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 Any Significant HX Other Medical History: Denies Any Significant HX Alcohol Use: none Drug use: none Medications and Allergies Aspirin 81 mg PO DAILY 09/28/17 [History] Lisinopril [Zestril] 20 mg PO DAILY 09/28/17 [History] Metoprolol Succinate [Metoprolol Succinate] 25 mg PO DAILY 09/28/17 [History] 3 Allergy/AdvReac Type Severity Reaction Status Date / Time No Known Allergies Allergy Verified 09/28/17 14:16 - Meds/Allergy Pre-op Review Medications Reviewed: Yes Allergies Reviewed: Yes Beta Blockers on Current Med List: Yes If Beta Blockers taken, Date/Time (Last Dose taken): 09:32 09/29/2017 Anesthesia Results - Labs 09/29/17 00:39 09/29/17 00:39 Echocardiogram Name: Florian Sánchez Date of Study: 08/03/2017 History Hypertension History of Smoking Years 60 Packs 0.5 Pacer/ICD Implant Mild LV systolic dysfunction, LVEF 40-45%. There are regional wall motion abnormalities, see diagram below. Mild concentric left ventricular hypertrophy. Mildly dilated right ventricle with normal systolic function. A device lead was visualized in the right atrium and right ventricle. Moderately calcified aortic valve leaflets with restricted leaflet motion. Cannot determine if bicuspid or tricuspid on this study. Probably moderate-severe aortic stenosis. Transvalvular gradients are only mild-moderately elevated, however, there is LV dysfunction and the calculated aortic valve area is in the severe range (although possibly underestimated due to poor LVOT VTI measurement). Mild aortic regurgitation. Consider LINNEA for further evaluation of the aortic valve if clinically indicated. Mild-moderate mitral regurgitation. Mild tricuspid regurgitation. Mild-moderate pulmonary hypertension. Estimated RVSP = 49 mmHg. Blood pressure was significantly elevated (182/94) at the time of this study. Abnormal results were communicated to the ordering physician via [employer] message. Cardiology consultation was recommended. Medtronic pacemaker (Versa [id number]) implanted 2009, dual-chamber Interrogation data: 96% pacing uptime, currently a-flutter, 2.5 years est remaining battery life - Imaging EKG: image reviewed (Electronic ventricular pacemaker) Chest x-ray: report reviewed ( EV/EV echocardiogram Impressions: Mild LV systolic dysfunction, LVEF 40-45%. There are regional wall motion abnormalities, see diagram below. Mild concentric left ventricular hypertrophy. Mildly dilated right ventricle with normal systolic function. A device lead was visualized in the right atrium and right ventricle. Moderately calcified aortic valve leaflets with restricted leaflet motion. Cannot determine if bicuspid or tricuspid on this study. Probably moderate-severe aortic stenosis. Transvalvular gradients are only mild-moderately elevated, however, there is LV dysfunction and the calculated aortic valve area is in the severe range (although possibly underestimated due to poor LVOT VTI measurement). Mild aortic regurgitation. Consider LINNEA for further evaluation of the aortic valve if clinically indicated. Mild-moderate mitral regurgitation. Mild tricuspid regurgitation. Mild-moderate pulmonary hypertension. Estimated RVSP = 49 mmHg. Blood pressure was significantly elevated (182/94) at the time of this study. Abnormal results were communicated to the ordering physician via [employer] message.) Anesthesia Exam O2 Sat Height 1.8 m Height 1.8 m Weight 82.6 kg Weight 83.915 kg O2 Sat by Pulse Oximetry 98 O2 Sat by Pulse Oximetry 94 O2 Sat by Pulse Oximetry 94 O2 Sat by Pulse Oximetry 94 O2 Sat by Pulse Oximetry 96 O2 Sat by Pulse Oximetry 94 O2 Sat by Pulse Oximetry 94 Vital Signs Temp Pulse Resp BP Pulse Ox 98.1 F 73 18 179/147 93 09/28/17 13:01 09/28/17 13:01 09/28/17 13:01 09/28/17 13:01 09/28/17 13:01 Vital Signs/O2 Sat, Most Current Temp Pulse Resp BP Pulse Ox 98.6 F 96 18 137/83 98 09/29/17 06:23 09/29/17 06:23 09/29/17 06:23 09/29/17 06:23 09/29/17 06:23 Height: 5'10'' Weight: 182# NPO (# of Hours): > 8 hrs Pain Scale: 0 Pain Scale Used: Numeric (1 - 10) - HEENT Pupil (Motor): Pupils equal, EOMI Mallampati: II Teeth: Poor dentition (severe tooth decay and loose) - 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
[2017-09-29] MEDS ORDERED: *HR* Phenylephrine 10 MG/ML VIAL ONE (13:58)
[2017-09-29] MEDS ORDERED: *HR* FentaNYL (PF) 100 MCG/2 ML VIAL ONE ×2 (14:05→15:44)
[2017-09-29] MEDS ORDERED: *HR* Propofol 200 MG/20 ML VIAL IVP ONE (14:05)
[2017-09-29] MEDS ORDERED: *HR* Succinylcholine 200 MG/10 ML VIAL IVP ONE (14:05)
[2017-09-29] MEDS ORDERED: Ethanol\\Acetic Acid\\Na Ace\\Ben 1,000 ML IRRIG.SOLN IR ONE (14:06)
[2017-09-29] MEDS ORDERED: Lidocaine -MPF 2% 2 ML VIAL ONE ×2 (14:07→14:40)
[2017-09-29] MEDS ORDERED: Lidocaine -MPF 4% 5 ML AMPUL ONE (14:08)
--- NOTE | 2017-09-29 14:12 | Electrocardiograph Report ---
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
[2017-09-29] MEDS ORDERED: Heparin 1,000 UNITS/500 mL NS 500 ML ONE (14:39)
--- NOTE | 2017-09-29 14:39 | History & Physical Report ---
Date of Encounter: 09/29/17 Time of Encounter: 14:39 24 Hour HP Update - Instructions Instructions: If the History and Physical is less than 30 days old and was completed prior to A.M. admission and or procedure and has NOT been updated on calendar day of procedure please complete this update prior to performing procedure. - Update Patient reports changes in Medical Condition: No Changes in examination, assessment, or condition: No Changes in Medication: No Preop tests/diagnostics Reviewed: Yes Surgery Remains Indicated: Yes Consent for Planned Operative Procedure(s) Verified: Yes
[2017-09-29] MEDS ORDERED: *HR* Etomidate 40 MG/20 ML VIAL IVP ONE (15:45)
[2017-09-29] MEDS ORDERED: Ondansetron 4 MG/2 ML VIAL ONE (15:52)
[2017-09-29] MEDS ORDERED: Dexamethasone 4 MG/ML VIAL ONE (15:52)
[2017-09-29] MEDS ORDERED: *HR* HYDROmorphone (PF) 1 MG/ML SYRINGE IVP PRN ×2 (16:17→18:05)
[2017-09-29] MEDS ORDERED: *HR* Promethazine 25 MG/ML VIAL IVP PRN ×2 (16:17→18:05)
[2017-09-29] MEDS ORDERED: *HR* Labetalol 20 MG/4 ML SYRINGE IVP PRN ×2 (16:23→18:05)
[2017-09-29] MEDS ORDERED: Acetaminophen IV 1,000 MG/100 ML INFUS..BTL ONE (16:28)
--- NOTE | 2017-09-29 17:37 | Anesthesia Evaluation Post Op ---
Date of Encounter: 09/29/17 Time of Encounter: 17:36 - Vital Signs Vital Signs: Vital Signs/O2 Sat, Most Current Temp Pulse Resp BP Pulse Ox 98.9 F 60 19 155/89 96 09/29/17 17:04 09/29/17 17:24 09/29/17 17:24 09/29/17 17:24 09/29/17 17:24 - Lungs Lungs: Clear Ascult./Percussion - Airway Airway: Non-obstructed - Cardiovascular Regular Rate - Mental Status Mental Status: Alert & Oriented, Answers Appropriately - Pain Pain Scale: 0 - Nausea Vomiting Nausea Vomiting: Not Present - Hydration Hydration: Tolerates oral liquids, Has not voided - Discharge PostOp Status: Transfer Patient to floor
--- NOTE | 2017-09-29 17:39 | Orthopedic Operative Note ---
Date of procedure: 09/29/17 Pre-op diagnosis: Right displaced femoral neck fracture Post-op diagnosis: same Procedure: 1. Right hip hemiarthroplasty INDICATIONS: This is a 82-year-old male who had a fall and sustained a right displaced femoral neck fracture. After discussing the procedure at length, and based on the patient's age and activity level, the patient elected for operative management with a right hip hemiarthroplasty. The risks and benefits of the procedure were fully explained. Those risks include but are not limited to, infection, neurovascular injury, continued pain, stiffness, further injury, need for further surgery, DVT, PE, loss of limb, and loss of life. The patient understood all of these risks and wished to proceed. Informed consent was obtained. No guarantees were stated or implied. OPERATIVE REPORT: The patient was identified in the holding area. The right lower extremity was marked, the patient was taken to the operating room and general anesthetic was administered on the hospital bed. The patients head, neck and airway were protected by anesthesia through the case. The patient was then transferred to the operating table and placed in the lateral position on a pegboard. All bony prominences were well padded. The right lower extremity was then prepped and draped in the normal manner. Preoperative antibiotics were given prior to incision. A surgical time out protocol was then performed. A posterior approach was made. Incision was made just posterior to the greater trochanter. Sharp dissection was carried through subcutaneous tissue down to the fascia, coagulating any skin bleeders. Fascia minesh and gluteus darlyn fascia were then incised. Darlyn fibers were digitally dissected and a Charnley retractor was placed. The hip was extended and internally rotated. A Cobra retractor was then placed over the ilium to retract the abductors anteriorly. Electrocautery was then used to release the piriformis and short external rotators and capsule from the posterior aspect of the hip joint and a full-thickness flap was created. This was tagged for later repair. The release was carried down distally to the level of the lesser trochanter. At this point the hip was dislocated and the femoral neck fracture was exposed. A saw was used to freshen up the femoral neck cut approximately 1 fingerbreadth above the lesser trochanter. The femoral head was removed with a corkscrew. The fractured neck fragments were removed with a ronguer. We then exposed the femur using a femoral elevator, and sequentially remained and broached the femur to appropriate size in accordance with the Biomet system. We seated a size 11 mm broach and did initial trial reductions up to a + 3 taper. We had good soft tissue tensioning and stable range of motion, with good reproduction of leg lengths. The trials were then removed and the femoral stem was placed. Trial reductions were repeated with a +3 taper and 56 mm head. Satisfied with the hip kinematics, we cleaned and dried the trunion and the final femoral head was impacted and the hip was reduced. We then did our final check of range of motion, stability and leg lengths. We then thoroughly irrigated the wound and closed the hip capsule with #1 ethibond. The piriformis tendon and external rotators were repaired through bone tunnels. Fascia minesh was closed with #1 ethibond and subcutaneous tissues with 2-0 strata fix. Skin was closed with 3-0 strata fix. We then placed sterile dressings the patient was awoken by anesthesia and transferred to PACU in stable condition. Patient tolerated the procedure well. Postop plan: The patient will be transferred back to the floor and will be weight-bearing as tolerated postop. Implants: Biomet 11x35 mm echo lateralized stem 56 mm Endo head +3 taper Complications: none Anesthesia: DORINA Surgeon: Lincoln Brar Estimated blood loss (cc): 100 Condition: stable Disposition: PACU
[2017-09-29] MEDS ORDERED: *HR* Morphine 2 MG/ML SYRINGE IVP PRN (18:05)
[2017-09-29] MEDS ORDERED: Acetaminophen 325 MG TABLET PO PRN (18:05)
[2017-09-29] MEDS ORDERED: Naloxone 0.4 MG/ML INJ IVP PRN ×2 (18:05)
[2017-09-29] MEDS ORDERED: Ondansetron 4 MG/2 ML VIAL IVP PRN (18:05)
[2017-09-29] MEDS ORDERED: Nitroglycerin 0.4 MG TAB.SUBL SL PRN (18:05)
[2017-09-29] MEDS ORDERED: Ipratropium/Albuterol Neb 3 ML IH PRN (18:05)
--- NOTE | 2017-09-29 19:31 | Internal Med Progress Note ---
Date of Encounter: 09/29/17 Time of Encounter: 19:31 - Assessment and plan (1) Subcapital fracture of neck of right femur Current Visit: Yes Status: Acute Assessment and plan: patient underwent surgery today post operative doing well not confused will follow recommendations from ortho Qualifiers: Encounter type: initial encounter Fracture type: closed Qualified Code(s) : S72.011A - Unspecified intracapsular fracture of right femur, initial encounter for closed fracture (2) Elevated troponin Current Visit: Yes Status: Acute Assessment and plan: adynamic flat troponin willfollow cardiac recommendations (3) HTN (hypertension) Current Visit: Yes Status: Acute Assessment and plan: with in acceptale range Qualifiers: Hypertension type: unspecified Qualified Code(s): I10 - Essential (primary ) hypertension (4) CAD (coronary artery disease) Current Visit: Yes Status: Chronic Assessment and plan: denies chest pain Qualifiers: Coronary Disease-Associated Artery/Lesion type: [place] artery [place] vs. transplanted heart: [place] heart Associated angina: angina presence unspecified Qualified Code(s): I25.10 - Atherosclerotic heart disease of [place] coronary artery without angina pectoris (5) COPD (chronic obstructive pulmonary disease) Current Visit: Yes Status: Chronic Assessment and plan: stable COPD Qualifiers: COPD type: emphysema Emphysema type: unspecified Qualified Code(s): J43.9 - Emphysema, unspecified (6) DVT prophylaxis Current Visit: Yes Status: Acute - Subjective Interval history: patient seen and examined chart reviewed. denies pain or SOB - Constitutional Vitals: Temp Pulse Resp BP Pulse Ox 97.6 F 65 14 173/73 94 09/29/17 18:00 09/29/17 18:30 09/29/17 18:30 09/29/17 18:30 09/29/17 18:30 General appearance: Present: cooperative, mild distress, A&O X 3, pleasant, answers questions appropriately - Head Head exam: Present: atraumatic, normocephalic - Eye Eye exam: Present: PERRL, conjuntiva pink, sclera anicteric Pupils: Present: PERRL - Neck Neck exam general surgery: Present: supple, trachea midline. Absent: lymphadenopathy - Respiratory Respiratory exam: Present: CTAB. Absent: accessory muscle use, rales, rhonchi, wheezes - Cardiovascular Cardiovascular exam: Present: RRR, +S1, +S2. Absent: diastolic murmur, gallop, rubs, systolic murmur - GI/Abdominal GI/Abdominal exam: Present: normal bowel sounds, soft, no peritoneal signs. Absent: distended, tenderness - Extremities Exam Extremities exam: Present: warm, radial pulses palpable and symmetrical. Absent : calf tenderness, cyanotic, pedal edema - Neurological Exam Neurological exam: Present: CN II-XII intact, oriented X3, no focal deficits. Absent: pronater drift, facial droop, speech deficit - Skin Skin exam: Present: dry, intact Internal Medicine: Result - Labs CBC & Chem 7: 09/29/17 00:39 09/29/17 00:39 Labs: Short CBC 09/29/17 Range/Units 00:39 WBC 13.1 H (4.3-11.1) K/mcL Hgb 16.9 (12.9-16.9) g/dL Hct 51.1 H (37.5-50.1) % Plt Count 217 (140-400) K/mcL Neutrophils # 10.4 H (1.6-8.9) K/mcL BMP 09/29/17 00:39 Sodium 140 Potassium 4.2 Chloride 105 Carbon Dioxide 25 BUN 19 Creatinine 0.96 Glucose 95 Calcium 9.2 Cardiac Enzymes 09/29/17 09/29/17 Range/Units 00:39 05:43 Troponin I 0.14 H* 0.14 H* (0-0.03) ng/mL Liver Function 09/29/17 Range/Units 00:39 Total Bilirubin 2.8 H (0.2-1.2) mg/dL AST 25 (5-34) Units/L ALT 28 (0-55) Units/L Alkaline Phosphatase 97 (38-126) Units/L Albumin 3.3 L (3.5-5.0) g/dL - ABG Interpretation ABG results: PT/INR, D-dimer PT 13.5 Seconds (9.4-12.1) H 09/29/17 00:39 - Impressions Impressions Hip X-Ray 09/29/17 17:30 IMPRESSION: Uncomplicated right hip hemiarthroplasty. D/ / 09/29/2017 17:54:01 Ayan Page MD / chan Interpreting Provider: Ayan Page MD - VTE Documentation of Mechanical Device: Venous foot pump, device Consult Discharge Plan - Plan Referrals: Ethan Lam MD [Primary Care Provider] -
[2017-09-30] MEDS: CeFAZolin Premix DUPLEX 2,000 MG/50 ML BAG IVPB SCH ×2 (00:30→08:15)
[2017-09-30 06:28] LABS: Basophils % 0.2 %; Eosinophils % 0.1 %; Hematocrit 52.1 % (37.5-50.1); Hemoglobin 16.6 g/dL (12.9-16.9); Immature Granulocytes % 0.3 % (0-4); Lymphocytes # 0.5 K/mcL (0.6-4.6); Lymphocytes % 3.4 %; Mean Corpuscular HGB Conc 31.9 g/dL (31.6-35.5); Mean Corpuscular Hemoglobin 29.7 pg (28.0-33.3); Mean Corpuscular Volume 93.4 fL (83.0-100.0); Mean Platelet Volume 10.7 fL (9.4-12.4); Monocytes # 1.3 K/mcL (0.0-1.3); Monocytes % 9.1 %; Neutrophils # 12.1 K/mcL (1.6-8.9); Platelet Count 210 K/mcL (140-400); Red Blood Count 5.58 M/mcL (4.19-5.50); Red Cell Distribution Width 14.3 % (11.5-14.5); Segmented Neutrophils % 86.9 %
[2017-09-30 06:41] LABS: Albumin/Globulin Ratio 0.8 (1.1-2.2); Bilirubin,Total 2.5 mg/dL (0.2-1.2); Calcium 9.3 mg/dL (8.6-10.8); Potassium 4.7 mEq/L (3.5-4.5)
[2017-09-30] MEDS: Aspirin 81 MG TAB.CHEW PO SCH (08:16)
[2017-09-30] MEDS: Lisinopril 20 MG TABLET PO SCH (08:16)
[2017-09-30] MEDS: Metoprolol XL (24 HR) Succ 25 MG TAB.ER.24H PO SCH (08:16)
--- NOTE | 2017-09-30 09:38 | Internal Med Progress Note ---
Date of Encounter: 09/30/17 Time of Encounter: 09:35 - Assessment and plan (1) Subcapital fracture of neck of right femur Current Visit: Yes Status: Acute Assessment and plan: Patient did tolerate right hip hemiarthroplasty on September 29 post operative doing well, pain is well controlled continue physical therapy Alert and oriented 3 will follow recommendations from ortho Qualifiers: Encounter type: initial encounter Fracture type: closed Qualified Code(s) : S72.011A - Unspecified intracapsular fracture of right femur, initial encounter for closed fracture (2) Elevated troponin Current Visit: Yes Status: Acute Assessment and plan: adynamic flat troponin, cardiology is on board, patient has CAD and abnormal echocardiogram may need a cardiac catheterization (3) CHF (congestive heart failure) Current Visit: Yes Status: Chronic Assessment and plan: Chronic systolic CHF well compensated EF 40-45%, cardiology recommended LINNEA and cath in near future with [place] [facility] Continue lisinopril and a beta Dago Qualifiers: Congestive heart failure type: unspecified congestive heart failure type Congestive heart failure chronicity: chronic Qualified Code(s): I50.9 - Heart failure, unspecified (4) COPD (chronic obstructive pulmonary disease) Current Visit: Yes Status: Chronic Assessment and plan: stable COPD, no home O2 no wheezing Qualifiers: COPD type: emphysema Emphysema type: unspecified Qualified Code(s): J43.9 - Emphysema, unspecified (5) CAD (coronary artery disease) Current Visit: Yes Status: Chronic Assessment and plan: denies chest pain Qualifiers: Coronary Disease-Associated Artery/Lesion type: [place] artery [place] vs. transplanted heart: [place] heart Associated angina: angina presence unspecified Qualified Code(s): I25.10 - Atherosclerotic heart disease of [place] coronary artery without angina pectoris (6) DVT prophylaxis Current Visit: Yes Status: Acute Assessment and plan: We will defer to orthopedic surgery (7) Atrial flutter Current Visit: Yes Status: Acute Assessment and plan: Heart rate is well controlled continue beta Dago Qualifiers: Atrial flutter type: unspecified Qualified Code(s): I48.92 - Unspecified atrial flutter (8) HTN (hypertension) Current Visit: Yes Status: Chronic Assessment and plan: with in acceptale range Qualifiers: Hypertension type: unspecified Qualified Code(s): I10 - Essential (primary ) hypertension (9) ARF (acute renal failure) Current Visit: Yes Status: Acute Assessment and plan: Acute and a failure postop, we will follow up creatinine daily try to avoid IV fluids due to CHF Qualifiers: Acute renal failure type: unspecified Qualified Code(s): N17.9 - Acute kidney failure, unspecified - Time Spent With Patient 25 - 35 minutes - Subjective Interval history: Patient is a 82 years of the gentleman was admitted on September 28 after fall, he sustained a right hip fracture, went to right hip hemiarthroplasty on September 29 was tolerant procedure very well pain is controlled. He is on room air, he denies chest pain shortness of breasts. He is very active marlene. Alert and oriented 3. We will continue physical therapy. - Constitutional Vitals: Temp Pulse Resp BP Pulse Ox 98.3 F 66 14 159/78 95 09/30/17 06:43 09/30/17 06:43 09/30/17 06:43 09/30/17 06:43 09/30/17 06:43 CONSTITUTIONAL: patient appears as an age appropriate male in no acute distress. EYES Clear sclerae, bilateral pupils are equal, reactive to light. EMOI. RESPIRATORY: No accessory muscle use, bilateral clear to auscultation, no wheezing, no crackles/rales. CARDIOVASCULAR: Regular heart rate, normal S1 and S2, no murmurs GASTROINTESTINAL: bowel sounds present, soft, no tenderness. MUSCULOSKELETAL: Joints in normal range of motion, no clubbing, no edema, no cyanosis. Bilateral peripheral pulses 2+. NEUROLOGIC: CN II to XII are grossly intact, no focal neurological deficit. General appearance: Present: cooperative, mild distress, A&O X 3, pleasant, answers questions appropriately Internal Medicine: Result - Labs CBC & Chem 7: 09/30/17 06:22 09/30/17 06:22 Labs: Short CBC 09/30/17 Range/Units 06:22 WBC 13.9 H (4.3-11.1) K/mcL Hgb 16.6 (12.9-16.9) g/dL Hct 52.1 H (37.5-50.1) % Plt Count 210 (140-400) K/mcL Neutrophils # 12.1 H (1.6-8.9) K/mcL BMP 09/30/17 06:22 Sodium 140 Potassium 4.7 H Chloride 103 Carbon Dioxide 28 BUN 29 H D Creatinine 1.44 H Glucose 119 H Calcium 9.3 Liver Function 09/30/17 Range/Units 06:22 Total Bilirubin 2.5 H (0.2-1.2) mg/dL AST 30 (5-34) Units/L ALT 21 (0-55) Units/L Alkaline Phosphatase 86 (38-126) Units/L Albumin 3.0 L (3.5-5.0) g/dL - ABG Interpretation ABG results: PT/INR, D-dimer PT 13.5 Seconds (9.4-12.1) H 09/29/17 00:39 - Impressions Impressions Hip X-Ray 09/29/17 17:30 IMPRESSION: Uncomplicated right hip hemiarthroplasty. D/ / 09/29/2017 17:54:01 Ayan Page MD / chan Interpreting Provider: Ayan Page MD - VTE Documentation of Mechanical Device: Venous foot pump, device Consult Discharge Plan - Plan Referrals: Ethan Lam MD [Primary Care Provider] -
[2017-09-30] MEDS: *HR* HYDROcodone/Acet 5/325 mg TABLET PO PRN ×2 (11:45→16:49)
--- NOTE | 2017-09-30 14:19 | Cardiology Progress Note ---
Date of Encounter: 09/30/17 Time of Encounter: 13:30 Assessment and Plan (1) Subcapital fracture of neck of right femur Current Visit: Yes Status: Acute Per cardiology: -S/p surgery. -States feels well today. -Management per primary and orthopedic services. Qualifiers: Encounter type: initial encounter Fracture type: closed Qualified Code(s) : S72.011A - Unspecified intracapsular fracture of right femur, initial encounter for closed fracture (2) Elevated troponin Current Visit: Yes Status: Acute Per cardiology: -Elevated troponin in setting of fall without st segment signs of ischemia. -Troponins flat and adynamic. -Recent TTE with cardiomyopathy and regional wall motion abnormalities. -Denies chest pain. -DO not suspect NSTEMI, suspect demand ischemia. No cardiac rehab warranted. -PLan for LHC prior to discharge due to new cardiomyopathy and regional wall motion abnormalities. (3) Presence of cardiac pacemaker Current Visit: Yes Status: Acute Per cardiology: -[employer] pacemaker (Versa [id number]) implanted 2009, dual-chamber -Interrogation data: 96% pacing uptime, currently a-flutter, 2.5 years est remaining battery life -Has had poor follow up after pacemaker implantation. (4) Systolic dysfunction Current Visit: Yes Status: Chronic Per cardiology: -Echocardiogram performed 08/03/17 ordered by PCP due to murmur workup. -LVEF 40-45%Abnormal regional wall motion. Mod-severe aortic stenosis -LINNEA and cath when ok by orthopedic services. (5) Atrial flutter Current Visit: Yes Status: Acute Per cardiology: -Continue current beta-blockade. -HRs controlled. -Agqrx5xmap score 3 (age, HTN). Recommend director long term care anticoagulation. Patient must be on coumadin due to moderate-severe . -Will decide regarding director long term care anticoagulation once ok with orthopedic services and pending invasive cardiac evaluation. Qualifiers: Atrial flutter type: unspecified Qualified Code(s): I48.92 - Unspecified atrial flutter (6) Aortic stenosis Current Visit: Yes Status: Acute Per cardiology: -MOderate-servere per TTE. -Euvolemic on exam -PLan for TTE prior to discharge. Qualifiers: Cardiac valve disease etiology: nonrheumatic Qualified Code(s): I35.0 - Nonrheumatic aortic (valve) stenosis Discussion w patient/family: The assessment and plan as outlined above was discussed with the patient who expressed understanding and agreement. All questions were answered. Thank you for involving us in the care of your patient. Please call with any questions. Discussed and reviewed with . Subjective Principal diagnosis: R hip fracture Interval history: Patient states he feels well this morning. Denies complaints. Objective Vital Signs Temperature 98.1 F 09/28/17 13:01 Pulse Rate 73 09/28/17 13:01 Respiratory Rate 18 09/28/17 13:01 Blood Pressure 179/147 09/28/17 13:01 O2 Sat by Pulse Oximetry 93 09/28/17 13:01 Temperature 97.8 F 09/30/17 10:02 Pulse Rate 71 09/30/17 10:02 Respiratory Rate 15 09/30/17 10:02 Blood Pressure 146/94 09/30/17 10:02 O2 Sat by Pulse Oximetry 94 09/30/17 10:02 Oxygen Delivery Oxygen Delivery Nasal Cannula General: Conversant, No Apparent Distress HEENT: Atraumatic, Normocephaly, Mucus Membranes Moist Neck: No JVD, Normal carotid pulses Cardiac: Other (Irregularly, irregular. Systolic murmur noted. ) Lungs: Normal Breath Sounds, No Wheeze, Rales, Rhonchi Neuro: Alert and responsive, No focal deficits noted Abdomen: Soft, Non-Tender Skin: No rashes noted on visualized skin Musculoskeletal: No Chest Wall Tenderness Extremities: No Clubbing, No Cyanosis, No Edema, Normal Pulses Results 09/30/17 06:22 09/30/17 06:22 Lab Results Impressions Hip X-Ray 09/29/17 17:30 IMPRESSION: Uncomplicated right hip hemiarthroplasty. D/ / 09/29/2017 17:54:01 Ayan Page MD / [email or web address] Interpreting Provider: Ayan Page MD Active Medications Acetaminophen (Tylenol) 650 mg PO Q6HR PRN PRN Reason: Mild Pain (1-3) Stop: 03/30/18 17:51 Hydrocodone Bitart/Acetaminophen ([place] 5-325 Mg) 1 tab PO Q4HR PRN PRN Reason: Moderate Pain (4-6) Stop: 03/30/18 17:51 Last Admin: 09/30/17 11:45 Dose: 1 tab Albuterol/Ipratropium (Duoneb) 3 ml IH [id number] PRN PRN Reason: Shortness Of Breath/Wheezing Stop: 03/30/18 18:28 Aspirin (Aspirin) 81 mg PO DAILY [facility] Stop: 03/31/18 09:01 Last Admin: 09/30/17 08:16 Dose: 81 mg Hydromorphone HCl (Dilaudid) 0.5 mg IVP Q5MIN PRN; Protocol PRN Reason: Pain Stop: 03/31/18 16:18 Labetalol HCl (Labetalol) 5 mg IVP Q5MIN PRN; Protocol PRN Reason: PACU - Hypertension Stop: 03/31/18 16:24 Lisinopril (Zestril) 20 mg PO DAILY [facility] PRN Reason: Protocol Stop: 03/31/18 09:01 Last Admin: 09/30/17 08:16 Dose: 20 mg Metoprolol Succinate (Toprol Xl) 25 mg PO DAILY [facility] Stop: 03/31/18 09:01 Last Admin: 09/30/17 08:16 Dose: 25 mg Morphine Sulfate (Morphine Sulfate) 2 mg IVP Q4HR PRN PRN Reason: Severe Pain (7-10) Stop: 03/30/18 17:51 Naloxone HCl (Narcan) 0.4 mg IVP Q2MIN PRN PRN Reason: SEE COMMENTS Stop: 03/31/18 18:06 Nitroglycerin (Nitroglycerin) 0.4 mg SL Q5MIN PRN PRN Reason: Chest Pain Stop: 03/30/18 18:03 Ondansetron HCl (Zofran) 4 mg IVP Q8HR PRN PRN Reason: Nausea And Vomiting Stop: 03/30/18 17:51 Last Admin: 09/29/17 19:00 Dose: 4 mg Promethazine HCl (Phenergan) 6.25 mg IVP Q5MIN PRN PRN Reason: Nausea And Vomiting Laboratory Tests 09/28/17 09/28/17 09/28/17 13:35 13:35 18:07 WBC Hgb Creatinine Troponin I 0.12 H* 0.14 H* B-Natriuretic Peptide 712 H 09/29/17 09/29/1717 00:39 00:39 05:43 WBC Hgb Creatinine 0.96 Troponin I 0.14 H* 0.14 H* B-Natriuretic Peptide 09/30/17 09/30/17 06:22 06:22 WBC 13.9 H Hgb 16.6 Creatinine 1.44 H Troponin I B-Natriuretic Peptide - Imaging and Cardiology Chest Xray: report reviewed Echo: report reviewed - EKG Interpretation EKG results cardiology: other (Telemetry reviewed with average HR previous 12 hours noted to be 67, atrial flutter with intermittent pacing noted. PVCs noted. ) - VTE Documentation of Mechanical Device: Venous foot pump, device Consult Discharge Plan - Plan Referrals: Ethan Lam MD [Primary Care Provider] -
--- NOTE | 2017-09-30 14:56 | Orthopedics Progress Note ---
Date of Encounter: 09/30/17 Time of Encounter: 09:00 - Assessment and Plan (1) Hip fracture Current Visit: Yes Status: Acute Qualifiers: Encounter type: initial encounter Fracture type: closed Laterality: right Qualified Code(s): S72.001A - Fracture of unspecified part of neck of right femur, initial encounter for closed fracture Subjective Principal diagnosis: R hip fracture Interval history: S: Doing well post op. No new ortho complaints. No CP/SOB. No f/c/ns. O: AFVSS GEN: NAD RLE: Dress c/d/i DNVI s/s/t/sp/dp Motor intact 82 yo M s/p R hip hemiarthroplasty -WBAT, up with PT -PO pain control and DVT prophylaxis per primary team Objective Vital signs: Vital Signs Temp Pulse Resp BP Pulse Ox 09/30/17 14:43 98.9 F 91 14 125/73 98 09/30/17 10:02 97.8 F 71 15 146/94 94 09/30/17 06:43 98.3 F 66 14 159/78 95 09/30/17 00:05 97.5 F L 66 18 114/70 93 09/29/17 20:05 97.4 F L 64 16 156/82 96 09/29/17 19:00 58 14 159/76 96 09/29/17 18:30 65 14 173/73 94 09/29/17 18:00 97.6 F 74 14 180/95 94 09/29/17 17:44 62 18 153/81 96 09/29/17 17:34 99.3 F 63 18 154/92 96 09/29/17 17:24 60 19 155/89 96 09/29/17 17:14 64 18 142/81 95 09/29/17 17:04 98.9 F 100 12 155/106 97 Intake and Output 09/29/17 09/30/17 09/30/17 23:59 07:59 15:59 Intake Total 450 / 450 170 / 170 Output Total 50 / 50 0 / 0 Balance -50 / -50 450 / 450 170 / 170 Intake: IV Fluids 50 / 50 50 / 50 Ancef Premix DUPLEX 2,000 mg In 50 / 50 50 / 50 50 ml @ 100 mls/hr IVPB Q8HR [facility] Rx#:[id number] Oral 400 / 400 120 / 120 Output: Urine 0 / 0 Estimated Blood Loss 50 / 50 Other: Meal npo # Voids 1 Blood Glucose* 141 - Labs CBC & BMP: 09/30/17 06:22 09/30/17 06:22 Labs: Abnormal lab results WBC 13.9 K/mcL (4.3-11.1) H 09/30/17 06:22 RBC 5.58 M/mcL (4.19-5.50) H 09/30/17 06:22 Hct 52.1 % (37.5-50.1) H 09/30/17 06:22 Neutrophils # 12.1 K/mcL (1.6-8.9) H 09/30/17 06:22 Lymphocytes # 0.5 K/mcL (0.6-4.6) L 09/30/17 06:22 PT 13.5 Seconds (9.4-12.1) H 09/29/17 00:39 Potassium 4.7 mEq/L (3.5-4.5) H 09/30/17 06:22 BUN 29 mg/dL (8-26) H D 09/30/17 06:22 Creatinine 1.44 mg/dL (0.72-1.25) H 09/30/17 06:22 Est GFR ( Amer) 57 (> 60) L 09/30/17 06:22 Est GFR (Non-Af Amer) 47 (> 60) L 09/30/17 06:22 Glucose 119 mg/dL (70-99) H 09/30/17 06:22 POC Glucose 141 (58-89) H 09/30/17 00:09 Total Bilirubin 2.5 mg/dL (0.2-1.2) H 09/30/17 06:22 Troponin I 0.14 ng/mL (0-0.03) H* 09/29/17 05:43 B-Natriuretic Peptide 712 pg/mL (0-100) H 09/28/17 13:35 Albumin 3.0 g/dL (3.5-5.0) L 09/30/17 06:22 Globulin 4.0 g/dL (2.4-3.5) H 09/30/17 06:22 Albumin/Globulin Ratio 0.8 (1.1-2.2) L 09/30/17 06:22 Urine Protein 30 mg/dL (Neg-Trace) H 09/28/17 13:47 Urine Blood Small (Negative) H 09/28/17 13:47 Urine Microscopic RBC 3-5 per hpf (0-3) H 09/28/17 13:47 Ur Squamous Epith Cells Moderate per lpf (None-Few) H 09/28/17 13:47 - VTE Documentation of Mechanical Device: Venous foot pump, device Consult Discharge Plan - Plan Additional Instructions: DISCHARGE INSTRUCTIONS Dr. Brar Total Hip Replacement/Hip Hemiarthroplasty Wound Care -Keep wound / incision area clean and dry. -Keep dressing on. -No baths or swimming until otherwise instructed. -After 14 days, you may begin to shower only if no drainage is present. No submerging the wound under standing water until cleared by your physician (no baths, hot tubs, swimming pools, etc). Sponge baths are the best way to perform personal hygiene while at the same time protecting the wound from moisture. -No scrubbing the wound. You may "pad dry" the wound, but do not rub, as this may open up he wound and pre-dispose to wound infection. -Do not apply lotions or creams to incision site, unless instructed otherwise. -Observe for redness, swelling, or drainage. Please call the clinic immediately if you have fevers, chills with warmth/redness surrounding wound site or if you notice pus drainage from the wound site Activity -No heavy lifting objects greater than 10 pounds. -No driving while on narcotic pain medication. -You may be weight-bear as tolerated on both of your lower extremities. -Use crutches or a walker for ambulation. -Posterior hip precautions for 6 weeks: No bending the hip past 90 degrees. Do not allow the leg to cross the midline of your body (adduction). No twisting motions. Ask your physical therapist to review these precautions with you. Reducing the Risk of Blood Clots -You will need to complete a total 4 week course of enteric coated aspirin 325 mg twice daily. -Wear knee high compression hose 23 hours per day. Discharge Pain Medications -You will be given a prescription for pain medication. Wean off as tolerated. Do not wait to take the pain medication until the pain is severe, as it will be difficult to "catch up" once this occurs. The pain medication usually reaches its full effect ~1 hour after ingesting. -Your prescribed pain medication may contain Tylenol. You must be careful not to exceed 4,000 mg (4 g) of Tylenol (or generic equivalent), from all sources, within a single 24-hour period. -Some common side effects of the narcotic pain medications (Percocet, Oxycodone , Vicodin, etc) include nausea and itching. Benadryl is a great over the counter medication that helps calm your stomach, decreases your anxiety levels, and minimizes the itching. You can easily purchase this at your local pharmacy as an wrhw-mvt-hmhhfiz medication. Please abide by the instructions as printed on t-he bottle. If your nausea persists, make sure to take small amounts of crackers or other wireless construction manager foods. [-Resume 50,000 units of vitamin D2 daily and 1200 mg of calcium supplementation per day.] Referrals: Ethan Lam MD [Primary Care Provider] -
--- NOTE | 2017-09-30 15:00 | Physician Discharge Referral ---
- Diagnosis (1) Hip fracture Status: Acute - Transfer Medications Home Medications: Aspirin 81 mg PO DAILY 09/28/17 [History] Lisinopril [Zestril] 20 mg PO DAILY 09/28/17 [History] Metoprolol Succinate [Metoprolol Succinate] 25 mg PO DAILY 09/28/17 [History] Allergies/Adverse Reactions: 3 Allergy/AdvReac Type Severity Reaction Status Date / Time No Known Allergies Allergy Verified 09/28/17 14:16 - Respiratory Orders Smoking Cessation: Smoking cessation has been advised. For more information, call the [place] Tobacco Quit Line at 2-912-QABX-NOW. - Rehabiliation Orders Rehab Orders: Evaluation for Physical Therapy, Evaluation for Occupational Therapy Other: DISCHARGE INSTRUCTIONS Dr. Brar Total Hip Replacement/Hip Hemiarthroplasty Wound Care -Keep wound / incision area clean and dry. -Keep dressing in place -No baths or swimming until otherwise instructed. -After 14 days, you may begin to shower only if no drainage is present. No submerging the wound under standing water until cleared by your physician (no baths, hot tubs, swimming pools, etc). Sponge baths are the best way to perform personal hygiene while at the same time protecting the wound from moisture. -No scrubbing the wound. You may "pad dry" the wound, but do not rub, as this may open up he wound and pre-dispose to wound infection. -Do not apply lotions or creams to incision site, unless instructed otherwise. -Observe for redness, swelling, or drainage. Please call the clinic immediately if you have fevers, chills with warmth/redness surrounding wound site or if you notice pus drainage from the wound site Activity -No heavy lifting objects greater than 10 pounds. -No driving while on narcotic pain medication. -You may be weight-bear as tolerated on both of your lower extremities. -Use crutches or a walker for ambulation. -Posterior hip precautions for 6 weeks: No bending the hip past 90 degrees. Do not allow the leg to cross the midline of your body (adduction). No twisting motions. Ask your physical therapist to review these precautions with you. Reducing the Risk of Blood Clots -You will need to complete a total 4 week course of enteric coated aspirin 325 mg twice daily. -Wear knee high compression hose 23 hours per day. Discharge Pain Medications -You will be given a prescription for pain medication. Wean off as tolerated. Do not wait to take the pain medication until the pain is severe, as it will be difficult to "catch up" once this occurs. The pain medication usually reaches its full effect ~1 hour after ingesting. -Your prescribed pain medication may contain Tylenol. You must be careful not to exceed 4,000 mg (4 g) of Tylenol (or generic equivalent), from all sources, within a single 24-hour period. -Some common side effects of the narcotic pain medications (Percocet, Oxycodone , Vicodin, etc) include nausea and itching. Benadryl is a great over the counter medication that helps calm your stomach, decreases your anxiety levels, and minimizes the itching. You can easily purchase this at your local pharmacy as an gyam-ume-lnmlubn medication. Please abide by the instructions as printed on t-he bottle. If your nausea persists, make sure to take small amounts of crackers or other data warehouse analyst foods. [-Resume 50,000 units of vitamin D2 daily and 1200 mg of calcium supplementation per day CERTIFICATION: I certify that the transfer of the above named patient to an Extended Care Facility is necessary for the continuing treatment of the diagnosis listed. The above information is true and accurate reflection of patient's current condition. Confidential - Redisclosure prohibited without a patient's written consent.
[2017-10-01 07:51] LABS: Basophils % 0.3 %; Eosinophils # 1.2 K/mcL (0.0-0.6); Eosinophils % 9.5 %; Hematocrit 49.1 % (37.5-50.1); Immature Granulocytes % 0.3 % (0-4); Lymphocytes # 1.3 K/mcL (0.6-4.6); Lymphocytes % 9.8 %; Mean Corpuscular HGB Conc 32.6 g/dL (31.6-35.5); Mean Corpuscular Hemoglobin 30.7 pg (28.0-33.3); Mean Corpuscular Volume 94.1 fL (83.0-100.0); Mean Platelet Volume 11.4 fL (9.4-12.4); Monocytes # 1.7 K/mcL (0.0-1.3); Monocytes % 13.1 %; Neutrophils # 8.5 K/mcL (1.6-8.9); Platelet Count 192 K/mcL (140-400); Red Blood Count 5.22 M/mcL (4.19-5.50); Red Cell Distribution Width 14.4 % (11.5-14.5)
--- NOTE | 2017-10-01 07:59 | Orthopedics Progress Note ---
Date of Encounter: 10/01/17 Time of Encounter: 07:57 - Assessment and Plan (1) Hip fracture Current Visit: Yes Status: Acute I did discuss the diagnosis and treatment plan with Florian and his family. We discussed operative and non-operative treatment options. He is a community ambulator who typically walks with a cane. For pain control and ambulation post operatively we recommended surgical fixation with hemiarthroplasty of the right hip. We discussed the risks and benefits of surgery including but not limited to infection, blood loss, failure of surgery, DVT, PE, IA, and . He understands the risks and has elected to proceed. NPO at [facility] Plan for hip hemiarthroplasty tomorrow pending medical clearance Bedrest until surgery Qualifiers: Encounter type: initial encounter Fracture type: closed Laterality: right Qualified Code(s): S72.001A - Fracture of unspecified part of neck of right femur, initial encounter for closed fracture Subjective Principal diagnosis: R hip fracture Interval history: S: Doing well post op. No new ortho complaints. No CP/SOB. No f/c/ns. O: AFVSS GEN: NAD RLE: Dress c/d/i DNVI s/s/t/sp/dp Motor intact 82 yo M s/p R hip hemiarthroplasty -WBAT, up with PT daily. -Posterior hip precautions -PO pain control and DVT prophylaxis per primary team -F/u in office in 10-14 days Objective Vital signs: Vital Signs Temp Pulse Resp BP Pulse Ox 10/01/17 02:01 97.7 F 62 16 151/92 93 09/30/17 21:04 97.9 F 60 17 134/74 92 09/30/17 14:43 98.9 F 91 14 125/73 98 09/30/17 10:02 97.8 F 71 15 146/94 94 Intake and Output 09/30/17 09/30/17 10/01/17 15:59 23:59 07:59 Intake Total 530 / 530 120 / 120 Output Total 225 / 225 0 / 0 Balance 530 / 530 -105 / -105 0 / 0 Intake: IV Fluids 50 / 50 Ancef Premix DUPLEX 2,000 mg In 50 / 50 50 ml @ 100 mls/hr IVPB Q8HR [facility] Rx#:[id number] Oral 480 / 480 120 / 120 Output: Urine 225 / 225 0 / 0 Other: Meal Breakfast Lunch Percent of Meal Consumed 50% # Voids 1 - Labs CBC & BMP: 10/01/17 07:01 09/30/17 06:22 Labs: Abnormal lab results WBC 12.7 K/mcL (4.3-11.1) H 10/01/17 07:01 Monocytes # 1.7 K/mcL (0.0-1.3) H 10/01/17 07:01 Eosinophils # 1.2 K/mcL (0.0-0.6) H 10/01/17 07:01 PT 13.5 Seconds (9.4-12.1) H 09/29/17 00:39 Potassium 4.7 mEq/L (3.5-4.5) H 09/30/17 06:22 BUN 29 mg/dL (8-26) H D 09/30/17 06:22 Creatinine 1.44 mg/dL (0.72-1.25) H 09/30/17 06:22 Est GFR ( Amer) 57 (> 60) L 09/30/17 06:22 Est GFR (Non-Af Amer) 47 (> 60) L 09/30/17 06:22 Glucose 119 mg/dL (70-99) H 09/30/17 06:22 POC Glucose 141 (58-89) H 09/30/17 00:09 Total Bilirubin 2.5 mg/dL (0.2-1.2) H 09/30/17 06:22 Troponin I 0.14 ng/mL (0-0.03) H* 09/29/17 05:43 B-Natriuretic Peptide 712 pg/mL (0-100) H 09/28/17 13:35 Albumin 3.0 g/dL (3.5-5.0) L 09/30/17 06:22 Globulin 4.0 g/dL (2.4-3.5) H 09/30/17 06:22 Albumin/Globulin Ratio 0.8 (1.1-2.2) L 09/30/17 06:22 Urine Protein 30 mg/dL (Neg-Trace) H 09/28/17 13:47 Urine Blood Small (Negative) H 09/28/17 13:47 Urine Microscopic RBC 3-5 per hpf (0-3) H 09/28/17 13:47 Ur Squamous Epith Cells Moderate per lpf (None-Few) H 09/28/17 13:47 - VTE Documentation of Mechanical Device: Venous foot pump, device Consult Discharge Plan - Plan Additional Instructions: DISCHARGE INSTRUCTIONS Dr. Brar Total Hip Replacement/Hip Hemiarthroplasty Wound Care -Keep wound / incision area clean and dry. -May remove dressing after 5 days and start daily dry dressing changes. -No baths or swimming until otherwise instructed. -After 14 days, you may begin to shower only if no drainage is present. No submerging the wound under standing water until cleared by your physician (no baths, hot tubs, swimming pools, etc). Sponge baths are the best way to perform personal hygiene while at the same time protecting the wound from moisture. -No scrubbing the wound. You may "pad dry" the wound, but do not rub, as this may open up he wound and pre-dispose to wound infection. -Do not apply lotions or creams to incision site, unless instructed otherwise. -Observe for redness, swelling, or drainage. Please call the clinic immediately if you have fevers, chills with warmth/redness surrounding wound site or if you notice pus drainage from the wound site Activity -No heavy lifting objects greater than 10 pounds. -No driving while on narcotic pain medication. -You may be weight-bear as tolerated on both of your lower extremities. -Use crutches or a walker for ambulation. -Posterior hip precautions for 6 weeks: No bending the hip past 90 degrees. Do not allow the leg to cross the midline of your body (adduction). No twisting motions. Ask your physical therapist to review these precautions with you. Reducing the Risk of Blood Clots -You will need to complete a total 4 week course of enteric coated aspirin 325 mg twice daily. -Wear knee high compression hose 23 hours per day. Discharge Pain Medications -You will be given a prescription for pain medication. Wean off as tolerated. Do not wait to take the pain medication until the pain is severe, as it will be difficult to "catch up" once this occurs. The pain medication usually reaches its full effect ~1 hour after ingesting. -Your prescribed pain medication may contain Tylenol. You must be careful not to exceed 4,000 mg (4 g) of Tylenol (or generic equivalent), from all sources, within a single 24-hour period. -Some common side effects of the narcotic pain medications (Percocet, Oxycodone , Vicodin, etc) include nausea and itching. Benadryl is a great over the counter medication that helps calm your stomach, decreases your anxiety levels, and minimizes the itching. You can easily purchase this at your local pharmacy as an hwgd-inn-bikqdsv medication. Please abide by the instructions as printed on t-he bottle. If your nausea persists, make sure to take small amounts of crackers or other wood cabinet finisher foods. [-Resume 50,000 units of vitamin D2 daily and 1200 mg of calcium supplementation per day.] Referrals: Ethan Lam MD [Primary Care Provider] -
[2017-10-01 08:14] LABS: Alanine Aminotransferase 12 Units/L (0-55); Albumin 2.8 g/dL (3.5-5.0); Albumin/Globulin Ratio 0.8 (1.1-2.2); Alkaline Phosphatase 82 Units/L (38-126); Aspartate Amino Transferase 30 Units/L (5-34); BUN/Creatinine Ratio 30 (6-26); Bilirubin,Total 1.9 mg/dL (0.2-1.2); Blood Urea Nitrogen 30 mg/dL (8-26); Calcium 8.8 mg/dL (8.6-10.8); Carbon Dioxide 27 mEq/L (19-29); Chloride 106 mEq/L (98-109); Globulin 3.7 g/dL (2.4-3.5); Glucose 80 mg/dL (70-99); Osmolality,Calculated 297 (280-300); Potassium 4.4 mEq/L (3.5-4.5); Sodium 141 mEq/L (136-145); Total Protein 6.5 g/dL (6.0-8.3); eGFR For African Americans > 60 (> 60); eGFR For Non-African Americans > 60 (> 60)
[2017-10-01] MEDS: Lisinopril 20 MG TABLET PO SCH (08:25)
[2017-10-01] MEDS: Aspirin 81 MG TAB.CHEW PO SCH (08:25)
[2017-10-01] MEDS: *HR* HYDROcodone/Acet 5/325 mg TABLET PO PRN ×2 (08:25→16:59)
[2017-10-01] MEDS: Metoprolol XL (24 HR) Succ 25 MG TAB.ER.24H PO SCH (08:25)
--- NOTE | 2017-10-01 15:15 | Cardiology Progress Note ---
Date of Encounter: 10/01/17 Time of Encounter: 14:00 Assessment and Plan (1) Subcapital fracture of neck of right femur Current Visit: Yes Status: Acute Per cardiology: -S/p surgery. -States feels well today. -Management per primary and orthopedic services. Qualifiers: Encounter type: initial encounter Fracture type: closed Qualified Code(s) : S72.011A - Unspecified intracapsular fracture of right femur, initial encounter for closed fracture (2) Elevated troponin Current Visit: Yes Status: Acute Per cardiology: -Elevated troponin in setting of fall without st segment signs of ischemia. -Troponins flat and adynamic. -Recent TTE with cardiomyopathy and regional wall motion abnormalities. -Denies chest pain. -DO not suspect NSTEMI, suspect demand ischemia. No cardiac rehab warranted. -PLan for C prior to discharge due to new cardiomyopathy and regional wall motion abnormalities. (3) Presence of cardiac pacemaker Current Visit: Yes Status: Acute Per cardiology: -[employer] pacemaker (Versa [id number]) implanted 2009, dual-chamber -Interrogation data: 96% pacing uptime, currently a-flutter, 2.5 years est remaining battery life -Has had poor follow up after pacemaker implantation. (4) Systolic dysfunction Current Visit: Yes Status: Chronic Per cardiology: -Echocardiogram performed 08/03/17 ordered by PCP due to murmur workup. -LVEF 40-45%Abnormal regional wall motion. Mod-severe aortic stenosis -LINNEA and cath when ok by orthopedic services. (5) Atrial flutter Current Visit: Yes Status: Acute Per cardiology: -Continue current beta-blockade. -HRs controlled. -[id number] score 3 (age, HTN). Recommend care home anticoagulation. Patient must be on coumadin due to moderate-severe . -Will decide regarding care home anticoagulation once ok with orthopedic services and pending invasive cardiac evaluation. Qualifiers: Atrial flutter type: unspecified Qualified Code(s): I48.92 - Unspecified atrial flutter (6) Aortic stenosis Current Visit: Yes Status: Acute Per cardiology: -MOderate-servere per TTE. -Euvolemic on exam -Will make NPO after midnight, plan for possible LINNEA in am. Qualifiers: Cardiac valve disease etiology: nonrheumatic Qualified Code(s): I35.0 - Nonrheumatic aortic (valve) stenosis Discussion w patient/family: The assessment and plan as outlined above was discussed with the patient who expressed understanding and agreement. All questions were answered. Thank you for involving us in the care of your patient. Please call with any questions. Discussed and reviewed with . Subjective Principal diagnosis: R hip fracture Interval history: Patient states he feels well this morning. Denies complaints. Denies chest pain or shortness of breath. Objective Vital Signs, Last 4 Hours Temp Pulse Resp BP Pulse Ox 10/01/17 14:00 98.6 F 79 14 120/75 97 10/01/17 12:00 98.5 F 73 16 127/69 96 General: Conversant, No Apparent Distress HEENT: Atraumatic, Normocephaly, Mucus Membranes Moist Neck: No JVD, Normal carotid pulses Cardiac: Normal S1 and S2, Other (Systolic murmur noted, irregularly irregular. ) Lungs: Normal Breath Sounds, No Wheeze, Rales, Rhonchi Neuro: Alert and responsive, No focal deficits noted Abdomen: Soft, Non-Tender Skin: No rashes noted on visualized skin Musculoskeletal: No Chest Wall Tenderness Extremities: No Clubbing, No Cyanosis, No Edema, Normal Pulses Results 10/01/17 07:01 10/01/17 07:01 Lab Results Active Medications Acetaminophen (Tylenol) 650 mg PO Q6HR PRN PRN Reason: Mild Pain (1-3) Stop: 03/30/18 17:51 Hydrocodone Bitart/Acetaminophen ([place] 5-325 Mg) 1 tab PO Q4HR PRN PRN Reason: Moderate Pain (4-6) Stop: 03/30/18 17:51 Last Admin: 10/01/17 08:25 Dose: 1 tab Albuterol/Ipratropium (Duoneb) 3 ml IH [id number] PRN PRN Reason: Shortness Of Breath/Wheezing Stop: 03/30/18 18:28 Aspirin (Aspirin) 81 mg PO DAILY [facility] Stop: 03/31/18 09:01 Last Admin: 10/01/17 08:25 Dose: 81 mg Hydromorphone HCl (Dilaudid) 0.5 mg IVP Q5MIN PRN; Protocol PRN Reason: Pain Stop: 03/31/18 16:18 Labetalol HCl (Labetalol) 5 mg IVP Q5MIN PRN; Protocol PRN Reason: PACU - Hypertension Stop: 03/31/18 16:24 Lisinopril (Zestril) 20 mg PO DAILY [facility] PRN Reason: Protocol Stop: 03/31/18 09:01 Last Admin: 10/01/17 08:25 Dose: 20 mg Metoprolol Succinate (Toprol Xl) 25 mg PO DAILY [facility] Stop: 03/31/18 09:01 Last Admin: 10/01/17 08:25 Dose: 25 mg Morphine Sulfate (Morphine Sulfate) 2 mg IVP Q4HR PRN PRN Reason: Severe Pain (7-10) Stop: 03/30/18 17:51 Naloxone HCl (Narcan) 0.4 mg IVP Q2MIN PRN PRN Reason: SEE COMMENTS Stop: 03/31/18 18:06 Nitroglycerin (Nitroglycerin) 0.4 mg SL Q5MIN PRN PRN Reason: Chest Pain Stop: 03/30/18 18:03 Ondansetron HCl (Zofran) 4 mg IVP Q8HR PRN PRN Reason: Nausea And Vomiting Stop: 03/30/18 17:51 Last Admin: 09/29/17 19:00 Dose: 4 mg Promethazine HCl (Phenergan) 6.25 mg IVP Q5MIN PRN PRN Reason: Nausea And Vomiting Laboratory Tests 10/01/17 10/01/17 07:01 07:01 WBC 12.7 H Hgb 16.0 Creatinine 1.01 - Imaging and Cardiology Chest Xray: report reviewed Echo: report reviewed - EKG Interpretation EKG results cardiology: other (Telemetry reviewed with average HR previous 12 hours noted to be 65, atrial flutter, paced.) - VTE Documentation of Mechanical Device: Venous foot pump, device Consult Discharge Plan - Plan Additional Instructions: DISCHARGE INSTRUCTIONS Dr. Brar Total Hip Replacement/Hip Hemiarthroplasty Wound Care -Keep wound / incision area clean and dry. -May remove dressing after 5 days and start daily dry dressing changes. -No baths or swimming until otherwise instructed. -After 14 days, you may begin to shower only if no drainage is present. No submerging the wound under standing water until cleared by your physician (no baths, hot tubs, swimming pools, etc). Sponge baths are the best way to perform personal hygiene while at the same time protecting the wound from moisture. -No scrubbing the wound. You may "pad dry" the wound, but do not rub, as this may open up he wound and pre-dispose to wound infection. -Do not apply lotions or creams to incision site, unless instructed otherwise. -Observe for redness, swelling, or drainage. Please call the clinic immediately if you have fevers, chills with warmth/redness surrounding wound site or if you notice pus drainage from the wound site Activity -No heavy lifting objects greater than 10 pounds. -No driving while on narcotic pain medication. -You may be weight-bear as tolerated on both of your lower extremities. -Use crutches or a walker for ambulation. -Posterior hip precautions for 6 weeks: No bending the hip past 90 degrees. Do not allow the leg to cross the midline of your body (adduction). No twisting motions. Ask your physical therapist to review these precautions with you. Reducing the Risk of Blood Clots -You will need to complete a total 4 week course of enteric coated aspirin 325 mg twice daily. -Wear knee high compression hose 23 hours per day. Discharge Pain Medications -You will be given a prescription for pain medication. Wean off as tolerated. Do not wait to take the pain medication until the pain is severe, as it will be difficult to "catch up" once this occurs. The pain medication usually reaches its full effect ~1 hour after ingesting. -Your prescribed pain medication may contain Tylenol. You must be careful not to exceed 4,000 mg (4 g) of Tylenol (or generic equivalent), from all sources, within a single 24-hour period. -Some common side effects of the narcotic pain medications (Percocet, Oxycodone , Vicodin, etc) include nausea and itching. Benadryl is a great over the counter medication that helps calm your stomach, decreases your anxiety levels, and minimizes the itching. You can easily purchase this at your local pharmacy as an umrp-ghx-jaytjax medication. Please abide by the instructions as printed on t-he bottle. If your nausea persists, make sure to take small amounts of crackers or other stone planer foods. [-Resume 50,000 units of vitamin D2 daily and 1200 mg of calcium supplementation per day.] Referrals: Ethan Lam MD [Primary Care Provider] -
--- NOTE | 2017-10-01 16:12 | Internal Med Progress Note ---
Date of Encounter: 10/01/17 Time of Encounter: 16:11 - Assessment and plan (1) Subcapital fracture of neck of right femur Current Visit: Yes Status: Acute Assessment and plan: Patient did tolerate right hip hemiarthroplasty on September 29 post operative doing well, pain is well controlled continue physical therapy Alert and oriented 3 -WBAT, up with PT daily. -Posterior hip precautions -F/u in office in 10-14 days possible rehab after cardaic cath Qualifiers: Encounter type: initial encounter Fracture type: closed Qualified Code(s) : S72.011A - Unspecified intracapsular fracture of right femur, initial encounter for closed fracture (2) Elevated troponin Current Visit: Yes Status: Acute Assessment and plan: adynamic flat troponin, cardiology is on board, patient has CAD and abnormal echocardiogram, cardiology is planing a cardiac catheterization tomorrow (3) CHF (congestive heart failure) Current Visit: Yes Status: Chronic Assessment and plan: Chronic systolic CHF well compensated EF 40-45%, cardiology recommended, cardiac cath tomorrow per patient discusssion Continue lisinopril and a beta Dago Qualifiers: Congestive heart failure type: unspecified congestive heart failure type Congestive heart failure chronicity: chronic Qualified Code(s): I50.9 - Heart failure, unspecified (4) COPD (chronic obstructive pulmonary disease) Current Visit: Yes Status: Chronic Assessment and plan: stable COPD, no home O2 no wheezing Qualifiers: COPD type: emphysema Emphysema type: unspecified Qualified Code(s): J43.9 - Emphysema, unspecified (5) CAD (coronary artery disease) Current Visit: Yes Status: Chronic Qualifiers: Coronary Disease-Associated Artery/Lesion type: [place] artery [place] vs. transplanted heart: [place] heart Associated angina: angina presence unspecified Qualified Code(s): I25.10 - Atherosclerotic heart disease of [place] coronary artery without angina pectoris (6) DVT prophylaxis Current Visit: Yes Status: Acute Assessment and plan: We will defer to orthopedic surgery (7) Atrial flutter Current Visit: Yes Status: Acute Assessment and plan: Heart rate is well controlled continue beta Dago Qualifiers: Atrial flutter type: unspecified Qualified Code(s): I48.92 - Unspecified atrial flutter (8) HTN (hypertension) Current Visit: Yes Status: Chronic Assessment and plan: with in acceptale range Qualifiers: Hypertension type: unspecified Qualified Code(s): I10 - Essential (primary ) hypertension (9) ARF (acute renal failure) Current Visit: Yes Status: Acute Assessment and plan: Acute and a failure postop, Cr trending down, try to avoid IV fluids due to CHF Qualifiers: Acute renal failure type: unspecified Qualified Code(s): N17.9 - Acute kidney failure, unspecified - Time Spent With Patient 25 - 35 minutes - Subjective Interval history: Patient is a 82 years of the gentleman was admitted on September 28 after fall, he sustained a right hip fracture, went to right hip hemiarthroplasty on September 29 was tolerant procedure very well pain is controlled. He is on room air, he denies chest pain shortness of breasts. He is very active marlene. Alert and oriented 3. We will continue physical therapy. Patient is doing well, overnight no events. He is waiting for cardiac cast tomorrow. - Constitutional Vitals: Temp Pulse Resp BP Pulse Ox 98.6 F 79 14 120/75 97 10/01/17 14:00 10/01/17 14:00 10/01/17 14:00 10/01/17 14:00 10/01/17 14:00 CONSTITUTIONAL: patient appears as an age appropriate male in no acute distress. EYES Clear sclerae, bilateral pupils are equal, reactive to light. EMOI. RESPIRATORY: No accessory muscle use, bilateral clear to auscultation, no wheezing, no crackles/rales. CARDIOVASCULAR: Regular heart rate, normal S1 and S2, no murmurs GASTROINTESTINAL: bowel sounds present, soft, no tenderness. MUSCULOSKELETAL: Joints in normal range of motion, no clubbing, no edema, no cyanosis. Bilateral peripheral pulses 2+. NEUROLOGIC: CN II to XII are grossly intact, no focal neurological deficit. General appearance: Present: cooperative, mild distress, A&O X 3, pleasant, answers questions appropriately Internal Medicine: Result - Labs CBC & Chem 7: 10/01/17 07:01 10/01/17 07:01 Labs: Short CBC 10/01/17 Range/Units 07:01 WBC 12.7 H (4.3-11.1) K/mcL Hgb 16.0 (12.9-16.9) g/dL Hct 49.1 (37.5-50.1) % Plt Count 192 (140-400) K/mcL Neutrophils # 8.5 (1.6-8.9) K/mcL BMP 10/01/17 07:01 Sodium 141 Potassium 4.4 Chloride 106 Carbon Dioxide 27 BUN 30 H Creatinine 1.01 Glucose 80 Calcium 8.8 Liver Function 10/01/17 Range/Units 07:01 Total Bilirubin 1.9 H (0.2-1.2) mg/dL AST 30 (5-34) Units/L ALT 12 (0-55) Units/L Alkaline Phosphatase 82 (38-126) Units/L Albumin 2.8 L (3.5-5.0) g/dL - ABG Interpretation ABG results: PT/INR, D-dimer PT 13.5 Seconds (9.4-12.1) H 09/29/17 00:39 - VTE Documentation of Mechanical Device: Venous foot pump, device Consult Discharge Plan - Plan Additional Instructions: DISCHARGE INSTRUCTIONS Dr. Brar Total Hip Replacement/Hip Hemiarthroplasty Wound Care -Keep wound / incision area clean and dry. -May remove dressing after 5 days and start daily dry dressing changes. -No baths or swimming until otherwise instructed. -After 14 days, you may begin to shower only if no drainage is present. No submerging the wound under standing water until cleared by your physician (no baths, hot tubs, swimming pools, etc). Sponge baths are the best way to perform personal hygiene while at the same time protecting the wound from moisture. -No scrubbing the wound. You may "pad dry" the wound, but do not rub, as this may open up he wound and pre-dispose to wound infection. -Do not apply lotions or creams to incision site, unless instructed otherwise. -Observe for redness, swelling, or drainage. Please call the clinic immediately if you have fevers, chills with warmth/redness surrounding wound site or if you notice pus drainage from the wound site Activity -No heavy lifting objects greater than 10 pounds. -No driving while on narcotic pain medication. -You may be weight-bear as tolerated on both of your lower extremities. -Use crutches or a walker for ambulation. -Posterior hip precautions for 6 weeks: No bending the hip past 90 degrees. Do not allow the leg to cross the midline of your body (adduction). No twisting motions. Ask your physical therapist to review these precautions with you. Reducing the Risk of Blood Clots -You will need to complete a total 4 week course of enteric coated aspirin 325 mg twice daily. -Wear knee high compression hose 23 hours per day. Discharge Pain Medications -You will be given a prescription for pain medication. Wean off as tolerated. Do not wait to take the pain medication until the pain is severe, as it will be difficult to "catch up" once this occurs. The pain medication usually reaches its full effect ~1 hour after ingesting. -Your prescribed pain medication may contain Tylenol. You must be careful not to exceed 4,000 mg (4 g) of Tylenol (or generic equivalent), from all sources, within a single 24-hour period. -Some common side effects of the narcotic pain medications (Percocet, Oxycodone , Vicodin, etc) include nausea and itching. Benadryl is a great over the counter medication that helps calm your stomach, decreases your anxiety levels, and minimizes the itching. You can easily purchase this at your local pharmacy as an gsea-goc-hftwsut medication. Please abide by the instructions as printed on t-he bottle. If your nausea persists, make sure to take small amounts of crackers or other trombone slide assembler foods. [-Resume 50,000 units of vitamin D2 daily and 1200 mg of calcium supplementation per day.] Referrals: Ethan Lam MD [Primary Care Provider] -
[2017-10-02 05:44] LABS: Basophils # 0.1 K/mcL (0.0-0.2); Basophils % 0.5 %; Eosinophils # 1.5 K/mcL (0.0-0.6); Eosinophils % 14.9 %; Hematocrit 46.7 % (37.5-50.1); Immature Granulocytes % 0.6 % (0-4); Lymphocytes # 1.1 K/mcL (0.6-4.6); Lymphocytes % 10.9 %; Mean Corpuscular HGB Conc 32.1 g/dL (31.6-35.5); Mean Corpuscular Hemoglobin 30.1 pg (28.0-33.3); Mean Corpuscular Volume 93.8 fL (83.0-100.0); Mean Platelet Volume 10.9 fL (9.4-12.4); Monocytes # 1.7 K/mcL (0.0-1.3); Monocytes % 16.7 %; Neutrophils # 5.8 K/mcL (1.6-8.9); Platelet Count 218 K/mcL (140-400); Red Blood Count 4.98 M/mcL (4.19-5.50); Red Cell Distribution Width 14.2 % (11.5-14.5); Segmented Neutrophils % 56.4 %
[2017-10-02 05:57] LABS: Alanine Aminotransferase 12 Units/L (0-55); Albumin 2.7 g/dL (3.5-5.0); Albumin/Globulin Ratio 0.8 (1.1-2.2); Alkaline Phosphatase 72 Units/L (38-126); Aspartate Amino Transferase 25 Units/L (5-34); BUN/Creatinine Ratio 29 (6-26); Bilirubin,Total 2.2 mg/dL (0.2-1.2); Blood Urea Nitrogen 25 mg/dL (8-26); Calcium 8.9 mg/dL (8.6-10.8); Carbon Dioxide 30 mEq/L (19-29); Chloride 104 mEq/L (98-109); Globulin 3.4 g/dL (2.4-3.5); Glucose 91 mg/dL (70-99); Osmolality,Calculated 294 (280-300); Sodium 140 mEq/L (136-145); Total Protein 6.1 g/dL (6.0-8.3); eGFR For African Americans > 60 (> 60); eGFR For Non-African Americans > 60 (> 60)
--- NOTE | 2017-10-02 07:42 | Orthopedics Progress Note ---
Date of Encounter: 10/02/17 Time of Encounter: 07:42 - Assessment and Plan (1) Hip fracture Current Visit: Yes Status: Acute Qualifiers: Encounter type: initial encounter Fracture type: closed Laterality: right Qualified Code(s): S72.001A - Fracture of unspecified part of neck of right femur, initial encounter for closed fracture Subjective Principal diagnosis: R hip fracture Interval history: S: Doing well post op. No new ortho complaints. No CP/SOB. No f/c/ns. O: AFVSS GEN: NAD RLE: Dress c/d/i DNVI s/s/t/sp/dp Motor intact 82 yo M s/p R hip hemiarthroplasty -WBAT, up with PT daily. -Posterior hip precautions -PO pain control and DVT prophylaxis per primary team -F/u in office in 10-14 days -Will s/o Objective Vital signs: Vital Signs Temp Pulse Resp BP Pulse Ox 10/02/17 07:33 99.2 F 63 20 170/108 100 10/02/17 00:34 98.1 F 64 17 153/69 97 10/01/17 21:17 98.2 F 60 17 137/80 92 10/01/17 14:00 98.6 F 79 14 120/75 97 10/01/17 12:00 98.5 F 73 16 127/69 96 10/01/17 09:00 95 Intake and Output 10/01/17 10/01/17 10/02/17 15:59 23:59 07:59 Intake Total 940 / 940 340 / 340 0 / 0 Output Total 600 / 600 375 / 375 275 / 275 Balance 340 / 340 -35 / -35 -275 / -275 Intake: Oral 940 / 940 340 / 340 0 / 0 Output: Urine 600 / 600 375 / 375 275 / 275 Other: Meal Lunch Percent of Meal Consumed 50% 0% Blood Glucose* 138 99 - Labs CBC & BMP: 10/02/17 05:29 10/02/17 05:29 Labs: Abnormal lab results Monocytes # 1.7 K/mcL (0.0-1.3) H 10/02/17 05:29 Eosinophils # 1.5 K/mcL (0.0-0.6) H 10/02/17 05:29 PT 13.5 Seconds (9.4-12.1) H 09/29/17 00:39 Carbon Dioxide 30 mEq/L (19-29) H 10/02/17 05:29 BUN/Creatinine Ratio 29 (6-26) H 10/02/17 05:29 POC Glucose 99 (58-89) H 10/02/17 06:42 Total Bilirubin 2.2 mg/dL (0.2-1.2) H 10/02/17 05:29 Troponin I 0.14 ng/mL (0-0.03) H* 09/29/17 05:43 B-Natriuretic Peptide 712 pg/mL (0-100) H 09/28/17 13:35 Albumin 2.7 g/dL (3.5-5.0) L 10/02/17 05:29 Albumin/Globulin Ratio 0.8 (1.1-2.2) L 10/02/17 05:29 Urine Protein 30 mg/dL (Neg-Trace) H 09/28/17 13:47 Urine Blood Small (Negative) H 09/28/17 13:47 Urine Microscopic RBC 3-5 per hpf (0-3) H 09/28/17 13:47 Ur Squamous Epith Cells Moderate per lpf (None-Few) H 09/28/17 13:47 - VTE Documentation of Mechanical Device: Venous foot pump, device Consult Discharge Plan - Plan Additional Instructions: DISCHARGE INSTRUCTIONS Dr. Brar Total Hip Replacement/Hip Hemiarthroplasty Wound Care -Keep wound / incision area clean and dry. -May remove dressing after 5 days and start daily dry dressing changes. -No baths or swimming until otherwise instructed. -After 14 days, you may begin to shower only if no drainage is present. No submerging the wound under standing water until cleared by your physician (no baths, hot tubs, swimming pools, etc). Sponge baths are the best way to perform personal hygiene while at the same time protecting the wound from moisture. -No scrubbing the wound. You may "pad dry" the wound, but do not rub, as this may open up he wound and pre-dispose to wound infection. -Do not apply lotions or creams to incision site, unless instructed otherwise. -Observe for redness, swelling, or drainage. Please call the clinic immediately if you have fevers, chills with warmth/redness surrounding wound site or if you notice pus drainage from the wound site Activity -No heavy lifting objects greater than 10 pounds. -No driving while on narcotic pain medication. -You may be weight-bear as tolerated on both of your lower extremities. -Use crutches or a walker for ambulation. -Posterior hip precautions for 6 weeks: No bending the hip past 90 degrees. Do not allow the leg to cross the midline of your body (adduction). No twisting motions. Ask your physical therapist to review these precautions with you. Reducing the Risk of Blood Clots -You will need to complete a total 4 week course of enteric coated aspirin 325 mg twice daily. -Wear knee high compression hose 23 hours per day. Discharge Pain Medications -You will be given a prescription for pain medication. Wean off as tolerated. Do not wait to take the pain medication until the pain is severe, as it will be difficult to "catch up" once this occurs. The pain medication usually reaches its full effect ~1 hour after ingesting. -Your prescribed pain medication may contain Tylenol. You must be careful not to exceed 4,000 mg (4 g) of Tylenol (or generic equivalent), from all sources, within a single 24-hour period. -Some common side effects of the narcotic pain medications (Percocet, Oxycodone , Vicodin, etc) include nausea and itching. Benadryl is a great over the counter medication that helps calm your stomach, decreases your anxiety levels, and minimizes the itching. You can easily purchase this at your local pharmacy as an gabz-due-qwayhrq medication. Please abide by the instructions as printed on t-he bottle. If your nausea persists, make sure to take small amounts of crackers or other stablehand foods. [-Resume 50,000 units of vitamin D2 daily and 1200 mg of calcium supplementation per day.] Referrals: Ethan Lam MD [Primary Care Provider] -
--- NOTE | 2017-10-02 09:19 | Internal Med Progress Note ---
Date of Encounter: 10/02/17 Time of Encounter: 09:16 - Assessment and plan (1) Subcapital fracture of neck of right femur Current Visit: Yes Status: Acute Assessment and plan: Current Visit: Yes Status: Acute Assessment and plan: Status post right hip hemiarthroplasty on September 29 continue physical therapy -F/u in office in 10-14 days possible rehab after cardaic cath Qualifiers: Encounter type: initial encounter Fracture type: closed Qualified Code(s) : S72.011A - Unspecified intracapsular fracture of right femur, initial encounter for closed fracture (2) Elevated troponin Current Visit: Yes Status: Acute Assessment and plan: adynamic flat troponin, cardiology is on board, patient has CAD and abnormal echocardiogram with wall motion abnormalities and prior ejection fraction from 40-45% also showing moderate to severe aortic stenosis, cardiology is planing a cardiac catheterization (3) CHF (congestive heart failure) Current Visit: Yes Status: Chronic Assessment and plan: Chronic systolic CHF well compensated EF 40-45%, cardiology recommended, cardiac cath tomorrow per patient discusssion Continue lisinopril and a beta Dago Qualifiers: Congestive heart failure type: unspecified congestive heart failure type Congestive heart failure chronicity: chronic Qualified Code(s): I50.9 - Heart failure, unspecified (4) COPD (chronic obstructive pulmonary disease) Current Visit: Yes Status: Chronic Assessment and plan: stable COPD, no home O2 no wheezing Qualifiers: COPD type: emphysema Emphysema type: unspecified Qualified Code(s): J43.9 - Emphysema, unspecified (5) CAD (coronary artery disease) Current Visit: Yes Status: Chronic Qualifiers: Coronary Disease-Associated Artery/Lesion type: [place] artery [place] vs. transplanted heart: [place] heart Associated angina: angina presence unspecified Qualified Code(s): I25.10 - Atherosclerotic heart disease of [place] coronary artery without angina pectoris (6)Aortic stenosis Current Visit: Yes Status: Acute Per cardiology: -MOderate-servere per TTE. Planing and possible LINNEA (7) Atrial flutter Current Visit: Yes Status: Acute Assessment and plan: Heart rate is well controlled continue beta Dago Qualifiers: Atrial flutter type: unspecified Qualified Code(s): I48.92 - Unspecified atrial flutter (8) HTN (hypertension) Current Visit: Yes Status: Chronic Assessment and plan: with in acceptale range Qualifiers: Hypertension type: unspecified Qualified Code(s): I10 - Essential (primary ) hypertension (9) ARF (acute renal failure) Current Visit: Yes Status: Acute Assessment and plan: Acute and a failure postop, Cr trending down, try to avoid IV fluids due to CHF Qualifiers: Acute renal failure type: unspecified Qualified Code(s): N17.9 - Acute kidney failure, unspecified Qualifiers: Encounter type: initial encounter Fracture type: closed Qualified Code(s) : S72.011A - Unspecified intracapsular fracture of right femur, initial encounter for closed fracture - Subjective Interval history: Denies any chest pain, has mild pain on the right hip. Denies any shortness of breath, no fevers, no abdominal pain or diarrhea - Constitutional Vitals: Temp Pulse Resp BP Pulse Ox 99.2 F 63 20 170/108 100 10/02/17 07:33 10/02/17 07:33 10/02/17 07:33 10/02/17 07:33 10/02/17 07:33 General appearance: Present: cooperative, mild distress, A&O X 3, pleasant, answers questions appropriately - Head Head exam: Present: atraumatic, normocephalic - Eye Eye exam: Present: PERRL, conjuntiva pink, sclera anicteric Pupils: Present: PERRL - Neck Neck exam general surgery: Present: supple, trachea midline. Absent: lymphadenopathy - Respiratory Respiratory exam: Present: CTAB. Absent: accessory muscle use, rales, rhonchi, wheezes - Cardiovascular Cardiovascular exam: Present: RRR, +S1, +S2, systolic murmur (Loud systolic murmur radiating to the aortic area 2 out of 6). Absent: diastolic murmur, gallop, rubs - GI/Abdominal GI/Abdominal exam: Present: normal bowel sounds, soft, no peritoneal signs. Absent: distended, tenderness - Extremities Exam Extremities exam: Present: warm, radial pulses palpable and symmetrical. Absent : calf tenderness, cyanotic, pedal edema - Neurological Exam Neurological exam: Present: CN II-XII intact, oriented X3, no focal deficits. Absent: pronater drift, facial droop, speech deficit - Skin Skin exam: Present: dry. Absent: intact (Right hip surgical wound without hematoma or signs of infection) Internal Medicine: Result - Labs CBC & Chem 7: 10/02/17 05:29 10/02/17 05:29 Labs: Short CBC 10/02/17 Range/Units 05:29 WBC 10.2 (4.3-11.1) K/mcL Hgb 15.0 (12.9-16.9) g/dL Hct 46.7 (37.5-50.1) % Plt Count 218 (140-400) K/mcL Neutrophils # 5.8 (1.6-8.9) K/mcL BMP 10/01/17 10/02/17 07:01 05:29 Sodium 141 140 Potassium 4.4 4.0 Chloride 106 104 Carbon Dioxide 27 30 H BUN 30 H 25 Creatinine 1.01 0.85 Glucose 80 91 Calcium 8.8 8.9 Liver Function 10/01/17 10/02/17 Range/Units 07:01 05:29 Total Bilirubin 1.9 H 2.2 H (0.2-1.2) mg/dL AST 30 25 (5-34) Units/L ALT 12 12 (0-55) Units/L Alkaline Phosphatase 82 72 (38-126) Units/L Albumin 2.8 L 2.7 L (3.5-5.0) g/dL - ABG Interpretation ABG results: PT/INR, D-dimer PT 13.5 Seconds (9.4-12.1) H 09/29/17 00:39 - VTE Documentation of Mechanical Device: Venous foot pump, device Consult Discharge Plan - Plan Additional Instructions: DISCHARGE INSTRUCTIONS Dr. Brar Total Hip Replacement/Hip Hemiarthroplasty Wound Care -Keep wound / incision area clean and dry. -May remove dressing after 5 days and start daily dry dressing changes. -No baths or swimming until otherwise instructed. -After 14 days, you may begin to shower only if no drainage is present. No submerging the wound under standing water until cleared by your physician (no baths, hot tubs, swimming pools, etc). Sponge baths are the best way to perform personal hygiene while at the same time protecting the wound from moisture. -No scrubbing the wound. You may "pad dry" the wound, but do not rub, as this may open up he wound and pre-dispose to wound infection. -Do not apply lotions or creams to incision site, unless instructed otherwise. -Observe for redness, swelling, or drainage. Please call the clinic immediately if you have fevers, chills with warmth/redness surrounding wound site or if you notice pus drainage from the wound site Activity -No heavy lifting objects greater than 10 pounds. -No driving while on narcotic pain medication. -You may be weight-bear as tolerated on both of your lower extremities. -Use crutches or a walker for ambulation. -Posterior hip precautions for 6 weeks: No bending the hip past 90 degrees. Do not allow the leg to cross the midline of your body (adduction). No twisting motions. Ask your physical therapist to review these precautions with you. Reducing the Risk of Blood Clots -You will need to complete a total 4 week course of enteric coated aspirin 325 mg twice daily. -Wear knee high compression hose 23 hours per day. Discharge Pain Medications -You will be given a prescription for pain medication. Wean off as tolerated. Do not wait to take the pain medication until the pain is severe, as it will be difficult to "catch up" once this occurs. The pain medication usually reaches its full effect ~1 hour after ingesting. -Your prescribed pain medication may contain Tylenol. You must be careful not to exceed 4,000 mg (4 g) of Tylenol (or generic equivalent), from all sources, within a single 24-hour period. -Some common side effects of the narcotic pain medications (Percocet, Oxycodone , Vicodin, etc) include nausea and itching. Benadryl is a great over the counter medication that helps calm your stomach, decreases your anxiety levels, and minimizes the itching. You can easily purchase this at your local pharmacy as an [id number]-iew-yzyjsfd medication. Please abide by the instructions as printed on t-he bottle. If your nausea persists, make sure to take small amounts of crackers or other mate ship foods. [-Resume 50,000 units of vitamin D2 daily and 1200 mg of calcium supplementation per day.] Referrals: Ethan Lam MD [Primary Care Provider] -
[2017-10-02] MEDS: Metoprolol XL (24 HR) Succ 25 MG TAB.ER.24H PO SCH (09:59)
[2017-10-02] MEDS: Lisinopril 20 MG TABLET PO SCH (09:59)
[2017-10-02] MEDS: *HR* HYDROcodone/Acet 5/325 mg TABLET PO PRN (09:59)
[2017-10-02] MEDS: Aspirin 81 MG TAB.CHEW PO SCH (09:59)
--- NOTE | 2017-10-02 10:10 | Cardiology Progress Note ---
<Jovanni Costello - Last Filed: 10/02/17 16:45> Date of Encounter: 10/02/17 Time of Encounter: 10:04 Assessment and Plan (1) Elevated troponin Current Visit: Yes Status: Acute Elevated troponin in setting of fall without st segment signs of ischemia; NSTEMI not suspected. -Recent TTE with cardiomyopathy and regional wall motion abnormalities, patient is agreeable to [facility] to determine coronary patency. Judicious transport/prep/ access planned in setting of s/p R hemiartroplasty. (2) Presence of cardiac pacemaker Current Visit: Yes Status: Acute -[employer] pacemaker (Versa [id number]) implanted 2009, dual-chamber -Interrogation data: 96% pacing uptime, currently a-flutter, 2.5 years est remaining battery life -Has had poor follow up after pacemaker implantation. (3) Systolic dysfunction Current Visit: Yes Status: Chronic -Echocardiogram performed 08/03/17 ordered by PCP due to murmur workup. -LVEF 40-45%Abnormal regional wall motion. Mod-severe aortic stenosis -LINNEA planned for today and cath today/tomorrow/outpatient, patient agreeable. Judicious transport/prep/access planned in setting of s/p R hemiartroplasty. (4) Aortic stenosis Current Visit: Yes Status: Acute Moderate-servere per TTE, July. -Euvolemic on exam -Plan for possible LINNEA in am 10/03 Qualifiers: Cardiac valve disease etiology: nonrheumatic Qualified Code(s): I35.0 - Nonrheumatic aortic (valve) stenosis (5) Atrial flutter Current Visit: Yes Status: Acute On Toprol XL 25mg daily. -HRs controlled. -Zvebe3mbss score 5 (age2, HTN, hx stroke, hx vasc disease). Recommend long-term anticoagulation. Patient must be on coumadin due to moderate-severe . 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 If requiring stenting, candidate for DAPT+Coumadin. Qualifiers: Atrial flutter type: unspecified Qualified Code(s): I48.92 - Unspecified atrial flutter (6) Subcapital fracture of neck of right femur Current Visit: Yes Status: Acute -S/p surgery. -States feels well today. Management per primary, orthopedics has documented post-op recommendations for wound care, activity, rehab. Qualifiers: Encounter type: initial encounter Fracture type: closed Qualified Code(s) : S72.011A - Unspecified intracapsular fracture of right femur, initial encounter for closed fracture (7) CAD (coronary artery disease) Current Visit: Yes Status: Chronic Chronic condition, continue home meds. Likely contributor to wall motion abnormalities. [facility] planned, patient agreeable. Qualifiers: Coronary Disease-Associated Artery/Lesion type: [place] artery [place] vs. transplanted heart: [place] heart Associated angina: angina presence unspecified Qualified Code(s): I25.10 - Atherosclerotic heart disease of [place] coronary artery without angina pectoris (8) HTN (hypertension) Current Visit: Yes Status: Chronic Continue metoprolol succinate and lisinopril. Indications for pt: a-flutter, bp control, kidney protection, cardioprotection. Qualifiers: Hypertension type: unspecified Qualified Code(s): I10 - Essential (primary ) hypertension (9) COPD (chronic obstructive pulmonary disease) Current Visit: Yes Status: Chronic Now on room air, saturating well. Consider smoking cessation. Qualifiers: COPD type: emphysema Emphysema type: unspecified Qualified Code(s): J43.9 - Emphysema, unspecified (10) DVT prophylaxis Current Visit: Yes Status: Acute Continue intermittent pneumatic compression. Discussion w patient/family: The assessment and plan as outlined above was discussed with the patient and/or family members who expressed understanding and agreement. All questions were answered. Thank you for involving us in the care of your patient. Please call with any questions. Subjective Principal diagnosis: R hip fracture Interval history: Mr. Sánchez is doing well after R hemiarthroplasty 09/19/17. Mild elevated bp's this AM, being given hydralazine by primary team. No complaint of chest pain or palpitations. Pain being managed well. Objective Vital Signs, Last 4 Hours Temp Pulse Resp BP Pulse Ox 10/02/17 07:33 99.2 F 63 20 170/108 100 General: Other (alert and oriented x3, [id number]) HEENT: Atraumatic Neck: No JVD, Other (no bruit) Cardiac: Other (irregular, S1 S2) Lungs: No Wheeze, Rales, Rhonchi Extremities: Other (reduced ROM R (surgery); pulses palpable bilaterally) Results 10/02/17 05:29 10/02/17 05:29 Lab Results 10/02/17 10/02/17 05:29 05:29 WBC 10.2 Hgb 15.0 Hct 46.7 Plt Count 218 Sodium 140 Potassium 4.0 Chloride 104 Carbon Dioxide 30 H BUN 25 Creatinine 0.85 Glucose 91 Calcium 8.9 Total Bilirubin 2.2 H AST 25 ALT 12 Alkaline Phosphatase 72 - VTE Documentation of Mechanical Device: Venous foot pump, device Consult Discharge Plan - Plan Additional Instructions: DISCHARGE INSTRUCTIONS Dr. Brar Total Hip Replacement/Hip Hemiarthroplasty Wound Care -Keep wound / incision area clean and dry. -May remove dressing after 5 days and start daily dry dressing changes. -No baths or swimming until otherwise instructed. -After 14 days, you may begin to shower only if no drainage is present. No submerging the wound under standing water until cleared by your physician (no baths, hot tubs, swimming pools, etc). Sponge baths are the best way to perform personal hygiene while at the same time protecting the wound from moisture. -No scrubbing the wound. You may "pad dry" the wound, but do not rub, as this may open up he wound and pre-dispose to wound infection. -Do not apply lotions or creams to incision site, unless instructed otherwise. -Observe for redness, swelling, or drainage. Please call the clinic immediately if you have fevers, chills with warmth/redness surrounding wound site or if you notice pus drainage from the wound site Activity -No heavy lifting objects greater than 10 pounds. -No driving while on narcotic pain medication. -You may be weight-bear as tolerated on both of your lower extremities. -Use crutches or a walker for ambulation. -Posterior hip precautions for 6 weeks: No bending the hip past 90 degrees. Do not allow the leg to cross the midline of your body (adduction). No twisting motions. Ask your physical therapist to review these precautions with you. Reducing the Risk of Blood Clots -You will need to complete a total 4 week course of enteric coated aspirin 325 mg twice daily. -Wear knee high compression hose 23 hours per day. Discharge Pain Medications -You will be given a prescription for pain medication. Wean off as tolerated. Do not wait to take the pain medication until the pain is severe, as it will be difficult to "catch up" once this occurs. The pain medication usually reaches its full effect ~1 hour after ingesting. -Your prescribed pain medication may contain Tylenol. You must be careful not to exceed 4,000 mg (4 g) of Tylenol (or generic equivalent), from all sources, within a single 24-hour period. -Some common side effects of the narcotic pain medications (Percocet, Oxycodone , Vicodin, etc) include nausea and itching. Benadryl is a great over the counter medication that helps calm your stomach, decreases your anxiety levels, and minimizes the itching. You can easily purchase this at your local pharmacy as an [id number] medication. Please abide by the instructions as printed on t-he bottle. If your nausea persists, make sure to take small amounts of crackers or other bus transportation manager foods. [-Resume 50,000 units of vitamin D2 daily and 1200 mg of calcium supplementation per day.] Referrals: Ethan Lam MD [Primary Care Provider] - <Kathe Davis - Last Filed: 10/02/17 18:34> Date of Encounter: 10/02/17 Assessment and Plan (1) Elevated troponin Current Visit: Yes Status: Acute Elevated troponin in setting of fall without st segment signs of ischemia; NSTEMI not suspected. -Recent TTE with cardiomyopathy and regional wall motion abnormalities, patient is agreeable to [facility] to determine coronary patency. Judicious transport/prep/ access planned in setting of s/p R hemiartroplasty. I examined this patient and my medical decision-making was reviewed with the Resident Physician. I agree with the documented findings, disposition and treatment plan as described except to the extent set forth below. Elevated troponin for [facility] tomorrow, RWMA on ECHO and mild troponins. LINNEA prior to [facility] to assess the severity of and ultimately management Discussion w patient/family: The assessment and plan as outlined above was discussed with the patient and/or family members who expressed understanding and agreement. All questions were answered. Thank you for involving us in the care of your patient. Please call with any questions. Objective Vital Signs, Last 4 Hours Temp Pulse Resp BP Pulse Ox 10/02/17 15:02 97.6 F 61 16 152/74 95 Results 10/02/17 05:29 10/02/17 05:29 Lab Results 10/02/17 10/02/17 05:29 05:29 WBC 10.2 Hgb 15.0 Hct 46.7 Plt Count 218 Sodium 140 Potassium 4.0 Chloride 104 Carbon Dioxide 30 H BUN 25 Creatinine 0.85 Glucose 91 Calcium 8.9 Total Bilirubin 2.2 H AST 25 ALT 12 Alkaline Phosphatase 72
[2017-10-03 06:07] LABS: Basophils % 0.5 %; Eosinophils # 0.8 K/mcL (0.0-0.6); Eosinophils % 9.2 %; Hematocrit 45.3 % (37.5-50.1); Hemoglobin 14.6 g/dL (12.9-16.9); Immature Granulocytes % 0.6 % (0-4); Lymphocytes # 0.9 K/mcL (0.6-4.6); Lymphocytes % 10.6 %; Mean Corpuscular HGB Conc 32.2 g/dL (31.6-35.5); Mean Corpuscular Hemoglobin 29.7 pg (28.0-33.3); Mean Corpuscular Volume 92.3 fL (83.0-100.0); Mean Platelet Volume 10.6 fL (9.4-12.4); Monocytes # 1.7 K/mcL (0.0-1.3); Monocytes % 19.2 %; Neutrophils # 5.3 K/mcL (1.6-8.9); Platelet Count 243 K/mcL (140-400); Red Blood Count 4.91 M/mcL (4.19-5.50); Red Cell Distribution Width 14.2 % (11.5-14.5); Segmented Neutrophils % 59.9 %
[2017-10-03 06:32] LABS: Alanine Aminotransferase 12 Units/L (0-55); Albumin 2.5 g/dL (3.5-5.0); Albumin/Globulin Ratio 0.7 (1.1-2.2); Alkaline Phosphatase 76 Units/L (38-126); Aspartate Amino Transferase 27 Units/L (5-34); BUN/Creatinine Ratio 28 (6-26); Bilirubin,Total 2.9 mg/dL (0.2-1.2); Blood Urea Nitrogen 24 mg/dL (8-26); Calcium 8.8 mg/dL (8.6-10.8); Carbon Dioxide 28 mEq/L (19-29); Chloride 103 mEq/L (98-109); Globulin 3.7 g/dL (2.4-3.5); Glucose 87 mg/dL (70-99); Osmolality,Calculated 293 (280-300); Potassium 3.8 mEq/L (3.5-4.5); Sodium 140 mEq/L (136-145); Total Protein 6.2 g/dL (6.0-8.3); eGFR For African Americans > 60 (> 60); eGFR For Non-African Americans > 60 (> 60)
[2017-10-03 06:37] LABS: Platelet Estimate Normal (Normal)
[2017-10-03 06:38] LABS: Reactive Lymphocytes Present (Not Present)
[2017-10-03] MEDS ORDERED: Lidocaine Viscous Oral Soln 15 ML SOLUTION MM PRN (08:18)
[2017-10-03] MEDS ORDERED: Tetracaine/Benzocaine/Butamben 200MG/SPRAY (100SPY/BOT) MM ONE (08:19)
[2017-10-03] MEDS ORDERED: 0.9 % Sodium Chloride 500 ML IVC ONE (08:19)
[2017-10-03] MEDS: *HR* FentaNYL (PF) 100 MCG/2 ML VIAL IVP PRN ×2 (09:00→09:05)
[2017-10-03] MEDS: *HR* Midazolam HCl 5 MG/5 ML VIAL IVP PRN ×2 (09:00→09:05)
[2017-10-03] MEDS: Metoprolol XL (24 HR) Succ 25 MG TAB.ER.24H PO SCH (12:14)
[2017-10-03] MEDS: Aspirin 81 MG TAB.CHEW PO SCH (12:14)
[2017-10-03] MEDS: Lisinopril 20 MG TABLET PO SCH (12:14)
--- NOTE | 2017-10-03 12:37 | Event Note ---
Date of Encounter: 10/03/17 Time of Encounter: 08:30 Patient seen in echocardiogram room, plan for echocardiogram and [facility] today. Both conset forms are now signed. Patient hard of hearing but discussion of both held with patient and patient agreeable.
[2017-10-03] MEDS ORDERED: Heparin 1,000 UNIT, 0.9 % Sodium Chloride 500 ML INTRAART ONE (13:45)
--- NOTE | 2017-10-03 14:02 | Internal Med Progress Note ---
Date of Encounter: 10/03/17 Time of Encounter: 14:01 - Assessment and plan (1) Subcapital fracture of neck of right femur Current Visit: Yes Status: Acute Assessment and plan: Current Visit: Yes Status: Acute Assessment and plan: Status post right hip hemiarthroplasty on September 29 continue physical therapy -F/u in office in 10-14 days possible rehab after cardaic cath Qualifiers: Encounter type: initial encounter Fracture type: closed Qualified Code(s) : S72.011A - Unspecified intracapsular fracture of right femur, initial encounter for closed fracture (2) Elevated troponin Current Visit: Yes Status: Acute Assessment and plan: adynamic flat troponin, cardiology is on board, patient has CAD and abnormal echocardiogram with wall motion abnormalities and prior ejection fraction from 40-45% also showing moderate to severe aortic stenosis, cardiology is planing a cardiac catheterization today (3) CHF (congestive heart failure) Current Visit: Yes Status: Chronic Assessment and plan: Chronic systolic CHF well compensated EF 40-45%, cardiology recommended, cardiac cath tomorrow per patient discusssion Continue lisinopril and a beta marlen Qualifiers: Congestive heart failure type: unspecified congestive heart failure type Congestive heart failure chronicity: chronic Qualified Code(s): I50.9 - Heart failure, unspecified (4) COPD (chronic obstructive pulmonary disease) Current Visit: Yes Status: Chronic Assessment and plan: stable COPD, no home O2 no wheezing Qualifiers: COPD type: emphysema Emphysema type: unspecified Qualified Code(s): J43.9 - Emphysema, unspecified (5) CAD (coronary artery disease) Current Visit: Yes Status: Chronic Qualifiers: Coronary Disease-Associated Artery/Lesion type: [place] artery [place] vs. transplanted heart: [place] heart Associated angina: angina presence unspecified Qualified Code(s): I25.10 - Atherosclerotic heart disease of [place] coronary artery without angina pectoris (6)Aortic stenosis Current Visit: Yes Status: Acute Per cardiology: -MOderate-servere per TTE. LINNEA report pending (7) Atrial flutter Current Visit: Yes Status: Acute Assessment and plan: Heart rate is well controlled continue beta Dago Qualifiers: Atrial flutter type: unspecified Qualified Code(s): I48.92 - Unspecified atrial flutter (8) HTN (hypertension) Current Visit: Yes Status: Chronic Assessment and plan: with in acceptale range Qualifiers: Hypertension type: unspecified Qualified Code(s): I10 - Essential (primary ) hypertension (9) ARF (acute renal failure) Current Visit: Yes Status: Acute Assessment and plan: Acute and a failure postop, Cr trending down, try to avoid IV fluids due to CHF Qualifiers: Acute renal failure type: unspecified Qualified Code(s): N17.9 - Acute kidney failure, unspecified Qualifiers: Encounter type: initial encounter Fracture type: closed Qualified Code(s) : S72.011A - Unspecified intracapsular fracture of right femur, initial encounter for closed fracture - Subjective Interval history: No complaints Denies any chest pain, has mild pain on the right hip. Denies any shortness of breath, no fevers, no abdominal pain or diarrhea - Constitutional Vitals: Temp Pulse Resp BP Pulse Ox 97.8 F 60 16 177/90 96 10/03/17 08:38 10/03/17 08:38 10/03/17 08:38 10/03/17 08:38 10/03/17 08:38 General appearance: Present: cooperative, mild distress, A&O X 3, pleasant, answers questions appropriately - Head Head exam: Present: atraumatic, normocephalic - Eye Eye exam: Present: PERRL, conjuntiva pink, sclera anicteric Pupils: Present: PERRL - Neck Neck exam general surgery: Present: supple, trachea midline. Absent: lymphadenopathy - Respiratory Respiratory exam: Present: CTAB. Absent: accessory muscle use, rales, rhonchi, wheezes - Cardiovascular Cardiovascular exam: Present: RRR, +S1, +S2. Absent: diastolic murmur, gallop, rubs, systolic murmur - GI/Abdominal GI/Abdominal exam: Present: normal bowel sounds, soft, no peritoneal signs. Absent: distended, tenderness - Extremities Exam Extremities exam: Present: warm, radial pulses palpable and symmetrical. Absent : calf tenderness, cyanotic, pedal edema - Neurological Exam Neurological exam: Present: CN II-XII intact, oriented X3, no focal deficits. Absent: pronater drift, facial droop, speech deficit - Skin Skin exam: Present: dry, intact Internal Medicine: Result - Labs CBC & Chem 7: 10/03/17 05:38 10/03/17 05:38 Labs: Short CBC 10/03/17 Range/Units 05:38 WBC 8.8 (4.3-11.1) K/mcL Hgb 14.6 (12.9-16.9) g/dL Hct 45.3 (37.5-50.1) % Plt Count 243 (140-400) K/mcL Neutrophils # 5.3 (1.6-8.9) K/mcL BMP 10/03/17 05:38 Sodium 140 Potassium 3.8 Chloride 103 Carbon Dioxide 28 BUN 24 Creatinine 0.87 Glucose 87 Calcium 8.8 Liver Function 10/03/17 Range/Units 05:38 Total Bilirubin 2.9 H (0.2-1.2) mg/dL AST 27 (5-34) Units/L ALT 12 (0-55) Units/L Alkaline Phosphatase 76 (38-126) Units/L Albumin 2.5 L (3.5-5.0) g/dL - ABG Interpretation ABG results: PT/INR, D-dimer PT 13.5 Seconds (9.4-12.1) H 09/29/17 00:39 - VTE Documentation of Mechanical Device: Venous foot pump, device Consult Discharge Plan - Plan Additional Instructions: DISCHARGE INSTRUCTIONS Dr. Brar Total Hip Replacement/Hip Hemiarthroplasty Wound Care -Keep wound / incision area clean and dry. -May remove dressing after 5 days and start daily dry dressing changes. -No baths or swimming until otherwise instructed. -After 14 days, you may begin to shower only if no drainage is present. No submerging the wound under standing water until cleared by your physician (no baths, hot tubs, swimming pools, etc). Sponge baths are the best way to perform personal hygiene while at the same time protecting the wound from moisture. -No scrubbing the wound. You may "pad dry" the wound, but do not rub, as this may open up he wound and pre-dispose to wound infection. -Do not apply lotions or creams to incision site, unless instructed otherwise. -Observe for redness, swelling, or drainage. Please call the clinic immediately if you have fevers, chills with warmth/redness surrounding wound site or if you notice pus drainage from the wound site Activity -No heavy lifting objects greater than 10 pounds. -No driving while on narcotic pain medication. -You may be weight-bear as tolerated on both of your lower extremities. -Use crutches or a walker for ambulation. -Posterior hip precautions for 6 weeks: No bending the hip past 90 degrees. Do not allow the leg to cross the midline of your body (adduction). No twisting motions. Ask your physical therapist to review these precautions with you. Reducing the Risk of Blood Clots -You will need to complete a total 4 week course of enteric coated aspirin 325 mg twice daily. -Wear knee high compression hose 23 hours per day. Discharge Pain Medications -You will be given a prescription for pain medication. Wean off as tolerated. Do not wait to take the pain medication until the pain is severe, as it will be difficult to "catch up" once this occurs. The pain medication usually reaches its full effect ~1 hour after ingesting. -Your prescribed pain medication may contain Tylenol. You must be careful not to exceed 4,000 mg (4 g) of Tylenol (or generic equivalent), from all sources, within a single 24-hour period. -Some common side effects of the narcotic pain medications (Percocet, Oxycodone , Vicodin, etc) include nausea and itching. Benadryl is a great over the counter medication that helps calm your stomach, decreases your anxiety levels, and minimizes the itching. You can easily purchase this at your local pharmacy as an [id number] medication. Please abide by the instructions as printed on t-he bottle. If your nausea persists, make sure to take small amounts of crackers or other emergency veterinary assistant foods. [-Resume 50,000 units of vitamin D2 daily and 1200 mg of calcium supplementation per day.] Referrals: Ethan Lam MD [Primary Care Provider] -
[2017-10-03] MEDS ORDERED: 0.9 % Sodium Chloride 1,000 ML ONE ×2 (14:29→14:34)
[2017-10-03] MEDS ORDERED: Nitroglycerin 1,000 MCG/10 ML VIAL IV ONE (14:30)
[2017-10-03] MEDS ORDERED: *HR* Heparin 10,000 UNIT/10 ML VIAL ONE (14:30)
[2017-10-03] MEDS ORDERED: *HR* FentaNYL (PF) 100 MCG/2 ML VIAL ONE (14:38)
[2017-10-03] MEDS ORDERED: *HR* Midazolam HCl 2 MG/2 ML VIAL ONE (14:38)
--- NOTE | 2017-10-03 14:41 | Pre-Sedation Evaluation ---
Pre-sedation evaluation - Pre-sedation checklist Date of procedure: 10/03/17 Procedure: heart cath Recent Vitals: Last Vital Signs Temp 97.4 F L 10/03/17 14:00 Pulse 62 10/03/17 14:00 Resp 14 10/03/17 14:00 BP 170/80 10/03/17 14:00 Pulse Ox 97 10/03/17 14:00 H&P (including ROS) documented in medical record: Yes Previous reaction to sedatives/anesthetics: No Dietary Status: NPO after Midnight Airway Assessment: Patient can open mouth completely, TMJ function normal, Micrognathia (under-bite, receding chin) absent, Neck with adequate range of motion Dentition: No loose teeth or bridges Possible difficult airway: No ASA Classification *see protocol: CLASS II-Mild systemic disease Plan of Care: Pt appropriate candidate for procedure/moderate/conscious sedation , Risks/benefits of procedure/sedation discussed w/ patient/family
--- NOTE | 2017-10-03 15:37 | Invasive Diagnostic Lab Proc ---
Name: Florian Sánchez Date of Study: 10/03/2017 Date: 1935 Ht: 70.9in Medical Record#: [id number] Age: 82 Wt: 182.98lb Gender: Male BSA: 2.03 Order #: [id number] BMI: 25.62 Physicians Procedure Physician: Blanca Saavedra MD, [facility] Referring MD: Referring MD: Staff Name Position Time In Wendy Jones RT (R) Monitor 02:46 PM Gina Barragan RN Steward/Stewardess Smoke Room 02:46 PM Yessy Hawkins RT (R) Scrub 02:46 PM Indications Indication Non-Stemi Procedures Performed Procedure L HRT ARTERY/VENTRICLE ANGIO Pre-Procedure Checklist Informed consent is complete signed and on chart. H&P is on chart. ID band is on and ID verified with patient. Patient NPO for procedure The procedure was described for the patient and questions were answered. ECG is on chart. Plan of Care Patient will tolerate the procedure without complications. Adequate level of comfort will be maintained. Hemodynamics will remain stable Patient will recover from procedure without complications. Respiratory function will be maintained. Cardiac rhythm will remain stable. Patient temperature will be maintained. Patient and/or family have verbalized understanding of the procedure. Patient Education Intravenous Access Time IV Size Location DC'd Fluid/Drip Rate Units RN 02:47 PM Started with 22g 1 " Lt Arm 0.9NaCl 25 ml/hr Gina Barragan RN 02:51 PM 16g 1 1/4" Patent On Arrival Lt Arm Yes Gina Barragan RN Allergies No Known Allergies Vital Signs Time BP (mmHg) HR (bpm) O2 Sat. RR (bpm) LOC 02:47 PM / % 5 = Fully awake and oriented or at pre-proc level 02:47 PM / % 4 = Oriented but drowsy 02:52 PM 192 / 87 64 99 % 29 02:57 PM 170 / 87 63 93 % 28 03:02 PM 172 / 87 64 97 % 29 03:07 PM 171 / 81 66 100 % 25 03:12 PM 177 / 86 64 92 % 27 03:17 PM 180 / 87 59 100 % Procedural Medications Time Medication Dose Units Method Given By 02:47 PM Oxygen 2 L/min nasal cannula Gina Barragan RN 02:52 PM Versed 1 mg Intravenous Gina Barragan RN 02:52 PM Fentanyl 25 mcg Intravenous Gina Barragan RN 03:00 PM Lidocaine 2% 14 ml Subcutaneous Blanca Saavedra MD, [facility] ASA Classification: CLASS II- Mild systemic disease (i.e. well-controlled diabetes, hypertension, asthma, cigarette smoking) Traci Score Preprocedure Postprocedure Activity 2- Moves 4 extremities sustained head lift Activity 2- Moves 4 extremities sustained head lift Circulation 2- SBP +/= 20 points of pre-anesthetic level Circulation 2- SBP +/= 20 points of pre-anesthetic level Consciousness 2- Awake and alert oriented x 3 Consciousness 2- Awake and alert oriented x 3 O2 Saturation 2- Able to maintain O2 satruation of 92% on room air O2 Saturation 2- Able to maintain O2 satruation of 92% on room air Respiratory 2- Able to deep breathe and cough well Respiratory 2- Able to deep breathe and cough well Total Score 10 Total Score 10 Contrast Agent: Isovue Diagnostic Contrast: 60 ml Total Contrast: 60 ml Fluoro Dose: 110 mGy Procedure Log Time Note Enter By 02:41 PM Pt arrived to recyclable materials sorter 2 at 14:41 twilson : PM Physician arrived 14:41 twilson : PM Meet and greet completed :41 PM Procedure start 14:41 twilson :41 PM Patient charges- Angio tray pack, Navilyst 3mm J, Pulse Oximetry and ACIST tubing and transducer tw: PM CathStat 02:46 PM Wendy Jones RT (R) Position: Monitor Time in: 14:46 tw 02:46 PM Gina Barragan RN Position: Steward/Stewardess Smoke Room Time in: 14:46 tw:46 PM Yessy Hawkins RT (R) Position: Scrub Time in: 14:46 twilson 02:46 PM Case Delayed no tw:46 PM Hair removed from procedure site in procedure lab using clippers. Bilateral groin prepped with Chloraprep by Yessy Hawkins RT (R), safety strap applied then patient was draped. Skin intact. tw:47 PM ASA Class CLASS II- Mild systemic disease (i.e. well-controlled diabetes, hypertension, asthma, cigarette smoking) tw: PM Time: 14:47 Oxygen on at 2 L/min per nasal cannula by Gina Barragan RN tw: PM Time: 14:47 Patient comfortable and pain free: Yes twilson 02:47 PM Time: 14:47LOC: 5 = Fully awake and oriented or at pre-proc level twilson 02:48 PM IV from floor is bad. Gina Barragan started a new IV. 22G left arm. twilson 02:49 PM Old IV dc'd per Gina Barragan. twilson 02:51 PM Vitals capture started with the following parameters, Patient=Adult, Interval=5 min, Initial Roueshgd=390 mmHg, Deflation Rate=5 mmHg, Cuff placed on Right Arm 02:52 PM Time: 14:52 Versed 1 mg Intravenous Given by Gina Barragan RN twilson 02:52 PM Time: 14:52 Fentanyl 25 mcg Intravenous Given by Gina Barragan RN twilson 02:52 PM HR=64 bpm, WSRH=191/87 mmhg, SpO2=99.0 %, Resp=29 B/min 02:57 PM HR=63 bpm, AICZ=347/87 mmhg, SpO2=93.0 %, Resp=28 B/min 03:00 PM Time out performed according to hospital policy twilson 03:00 PM Time: 15:00 14 ml Lidocaine 2% to right groin Subcutaneous Given by Blanca Saavedra MD, [facility] twilson 03:01 PM Pressure channel 1 zeroed. 03:02 PM Access obtained by percutaneous puncture. 5Fr 10cm Terumo Grant sheath placed in right Femoral artery. [id number] twilson 03:02 PM 5Fr FL 4 catheter inserted over the wire DN twilson 03:02 PM Wire removed, intact. twilson 03:02 PM Time: 14:47 Patient comfortable and pain free: Yes twilson 03:02 PM Time: 14:47LOC: 4 = Oriented but drowsy twilson 03:02 PM HR=64 bpm, JRDU=007/87 mmhg, SpO2=97.0 %, Resp=29 B/min 03:02 PM Recorded Pressure: Ao, HR=62, Condition=Condition 1 (Aorta) Ao 172/83/121 03:02 PM LCA angiography performed in multiple views. twilson 03:03 PM IV Supplies used: J loop Angio Cath. twilson 03:04 PM Wire reinserted and catheter removed, intact. twilson 03:04 PM 5Fr FR 4 catheter inserted over the wire DN twilson 03:04 PM Wire removed twilson 03:05 PM RCA angiography performed in multiple views. twilson 03:05 PM Wire reinserted and catheter removed, intact. twilson 03:06 PM 5Fr Pigtail catheter inserted over the wire [facility] twilson 03:07 PM HR=66 bpm, UJZH=634/81 mmhg, AcB6=577.0 %, Resp=25 B/min 03:07 PM Pressure channel 1 zeroed. 03:07 PM Recorded Pressure: LV, HR=61, Condition=Condition 1 (Left Ventricle) LV 157/6/7 03:08 PM Catheter selectively placed in left ventricle twilson 03:08 PM Recorded Pressure: LV, Ao, HR=63, Condition=Condition 1 (Left Ventricle) LV 155/6/8, (Aorta) Ao 140/36/100 03:09 PM Bolus angiogram of left Ventricle complete: 8 ml/sec for a total of 24 mls twilson 03:09 PM Wire reinserted and wire and catheter removed, intact. twilson 03:10 PM Bolus angiogram of right Femoral complete: 2 ml/sec for a total of 4 mls twilson 03:11 PM Procedure completed at 15:10 twilson 03:11 PM Sign out completed: Radiation Dose 109.74 mGy Fluoro Time: 1.4 Isovue 370 - 200ml contrast 60 ml given by Blanca Saavedra MD, [facility]. Complications: NoneCardiac Rehab Consult needed: NoConfirmed administered medications: Yes twilson 03:11 PM Isovue 370 - 200ml,1 Bottle(s) used. twilson 03:12 PM HR=64 bpm, WPLP=187/86 mmhg, SpO2=92.0 %, Resp=27 B/min 03:12 PM Arterial sheath pulled, Mynx closure device used and was Successful S/N. twilson 03:12 PM Estimated Blood Loss: minimal twilson 03:12 PM Post Blood Pressure 177/86 twilson 03:12 PM 15:12 Post Pulses Bilateral DP & PT 2+ twilson 03:12 PM 15:12 Post Pulses Bilateral radial 2+ twilson 03:12 PM Information taught Cardiac Cath and Mynx twilson 03:13 PM Education needs Procedure, Plan of Care, and Responsibilities of Patient in Care twilson 03:13 PM Learning barriers :None twilson 03:13 PM Education Methods Verbal twilson 03:13 PM Education evaluation Able to repeat information twilson 03:13 PM Site status No bleeding/hematoma - Rt Groin as reported by Yessy Hawkins RT (R) at 15:13 twilson 03:13 PM Opsite applied twilson 03:17 PM HR=59 bpm, EZCP=016/87 mmhg, HwD7=257.0 % 03:18 PM Delay to floor No twilson 03:18 PM No family present at this time. [employer] SCENE ANALYST to call son. twilson 03:25 PM Report given to Latha HAND Pt taken to 3A Room #43. 15:25 twilson 03:25 PM Coronary Dominance: Left twilson 03:26 PM Lesion found in Proximal LAD. Pre Stenosis: 25 Pre KAYLA Flow: twilson 03:26 PM Lesion found in Proximal Circumflex. Pre Stenosis: 25 Pre KAYLA Flow: twilson 03:26 PM Lesion found in Mid Circumflex. Pre Stenosis: 20 Pre KAYLA Flow: twilson 03:26 PM Proximal Left Anterior Descending Coronary Artery with 25% stenosis. If graft is supplying this territory, 0 % stenosis. twilson 03:26 PM Circumflex, Obtuse Marginal, Left Posterior Descending, and Left Posterolateral Coronary Arteries with 25 % stenosis. If graft is supplying this area, 0 % stenosis twilson 03:27 PM Patient out of room: 15:27 twilson Complications Complication None Hemodynamics Pressures Site Systolic/A Wave Diastolic/V Wave Mean AO 172 83 121 LV 157 6 7 LV 155 6 8 AO 140 36 100 Post Procedure Information Blood Pressure: 177/86 mmHg Post procedural instructions were given Closure Device Time Device Success/Fail 10/03/2017 3:15:00 PM MynxGrip Successful Site Checks Time Location Status Staff Sheath In? Note 03:13 PM Rt Groin No bleeding/hematoma Yessy Hawkins RT (R) Pulses Time Site Pre-Procedure Post-Procedure Note 10/03/2017 2:52:00 PM Bilateral DP & PT 2+ 10/03/2017 2:52:00 PM Bilateral radial 2+ 3:12:00 PM Bilateral DP & PT 2+ 3:12:00 PM Bilateral radial 2+ Updated by Wendy Jones RT (R) on 10/03/2017 3:29:29 PM electronically signed on 10/03/2017 3:29:59 PM with status of Final
--- NOTE | 2017-10-03 16:05 | Event Note ---
Date of Encounter: 10/03/17 Time of Encounter: 16:04 - Cardiology Event Note Attempted to call son personally regarding LHC results. No answer.
[2017-10-04] MEDS: Lisinopril 20 MG TABLET PO SCH (09:22)
[2017-10-04] MEDS: Aspirin 81 MG TAB.CHEW PO SCH (09:22)
[2017-10-04] MEDS: Metoprolol XL (24 HR) Succ 25 MG TAB.ER.24H PO SCH (09:22)
[2017-10-04] MEDS: *HR* HYDROcodone/Acet 5/325 mg TABLET PO PRN (09:26)
--- NOTE | 2017-10-04 09:54 | Cardiology Progress Note ---
<Jovanni Costello - Last Filed: 10/04/17 10:22> Date of Encounter: 10/04/17 Time of Encounter: 09:52 Assessment and Plan (1) Elevated troponin Status: Acute Elevated troponin in setting of fall without st segment signs of ischemia; NSTEMI not suspected. -Recent TTE with cardiomyopathy and regional wall motion abnormalities. Sign-off Plan: LHC shows mild lesions proximal LAD, proximal circ, mid circ, no stenting indicated; aortic stenosis moderate severity, no valve replacement indicated, will follow pt in out-pt setting with continuation of current home medications, (emphasis on therapeutic rate control due to propensity for a-flutter), due to valvular disease, patient only candidate for coumadin, but due to fall risk with recent R hip fracture as well as patient hx non-compliance (1 pacemaker check in over 5 years), recommend rate control for aflutter, will not initiate coumadin. Thank you for the consult. (2) Presence of cardiac pacemaker Status: Acute -[employer] pacemaker (Versa [id number]) implanted 2009, dual-chamber -Interrogation data: 96% pacing uptime, currently a-flutter, 2.5 years est remaining battery life -Has had poor follow up after pacemaker implantation. (3) Systolic dysfunction Status: Chronic -Echocardiogram performed 08/03/17 ordered by PCP due to murmur workup. -LVEF 40-45%Abnormal regional wall motion. Mod-severe aortic stenosis -LINNEA and cath performed as above. (4) Aortic stenosis Status: Acute Moderate-servere per TTE, July. -Euvolemic on exam Moderate, pt to avoid strenuous activity, anna marie to his activity level in nursing facility prior. No surgical intervention recommended. Qualifiers: Cardiac valve disease etiology: nonrheumatic Qualified Code(s): I35.0 - Nonrheumatic aortic (valve) stenosis (5) Atrial flutter Status: Acute On Toprol XL 25mg daily. -HRs controlled. -[id number] score 5 (age2, HTN, hx stroke, hx vasc disease). While intermediate frame tender anticoagulation is indicated, patient limited to coumadin due to moderate . Pt is fall risk as well. Compliance an issue with patient if coumadin initiated , will not initiate coumadin at this time. Recommend rate control. Pt did not require stenting, does not require DAPT, continue ASA. Qualifiers: Atrial flutter type: unspecified Qualified Code(s): I48.92 - Unspecified atrial flutter (6) Subcapital fracture of neck of right femur Status: Acute -S/p surgery. -States feels well today. Management per primary, orthopedics has documented post-op recommendations for wound care, activity, rehab. Qualifiers: Encounter type: initial encounter Fracture type: closed Qualified Code(s) : S72.011A - Unspecified intracapsular fracture of right femur, initial encounter for closed fracture (7) CAD (coronary artery disease) Status: Chronic Chronic condition, continue home meds. Likely contributor to wall motion abnormalities. Plan as above. Qualifiers: Coronary Disease-Associated Artery/Lesion type: kaw artery [place] vs. transplanted heart: kaw heart Associated angina: angina presence unspecified Qualified Code(s): I25.10 - Atherosclerotic heart disease of kaw coronary artery without angina pectoris (8) HTN (hypertension) Status: Chronic Continue metoprolol succinate and lisinopril. Indications for pt: a-flutter, bp control, kidney protection, cardioprotection. Qualifiers: Hypertension type: unspecified Qualified Code(s): I10 - Essential (primary ) hypertension (9) COPD (chronic obstructive pulmonary disease) Status: Chronic Now on room air, saturating well. Consider smoking cessation. Qualifiers: COPD type: emphysema Emphysema type: unspecified Qualified Code(s): J43.9 - Emphysema, unspecified (10) DVT prophylaxis Status: Acute Continue intermittent pneumatic compression. Discussion w patient/family: The assessment and plan as outlined above was discussed with the patient and/or family members who expressed understanding and agreement. All questions were answered. Thank you for involving us in the care of your patient. Please call with any questions. Subjective Principal diagnosis: R hip fracture Interval history: Mr. Sánchez is doing well after R hemiarthroplasty 09/19/17. S/p C yesterday, diagnostics show no need for intervention, will monitor outpatient. No complaints and tolerating rehab w/o chest pain or shortness of breath. Objective Vital Signs, Last 4 Hours Temp Pulse Resp BP Pulse Ox 10/04/17 06:37 98.4 F 59 14 177/78 95 General: Conversant HEENT: Atraumatic Neck: No JVD Cardiac: Normal S1 and S2, Other (Irregular rhythm, normal rate) Lungs: No Wheeze, Rales, Rhonchi Neuro: No focal deficits noted Musculoskeletal: No Chest Wall Tenderness Extremities: No Clubbing, No Cyanosis, No Edema Results 10/03/17 05:38 10/03/17 05:38 - VTE Documentation of Mechanical Device: Venous foot pump, device Consult Discharge Plan - Plan Additional Instructions: Follow-up with primary care physician after discharge from rehabilitation facility. Continue aspirin. Fall precautions. DISCHARGE INSTRUCTIONS Per Dr. Brar from orthopedic surgery Total Hip Replacement/Hip Hemiarthroplasty Wound Care -Keep wound / incision area clean and dry. -May remove dressing after 5 days and start daily dry dressing changes. -No baths or swimming until otherwise instructed. -After 14 days, you may begin to shower only if no drainage is present. No submerging the wound under standing water until cleared by your physician (no baths, hot tubs, swimming pools, etc). Sponge baths are the best way to perform personal hygiene while at the same time protecting the wound from moisture. -No scrubbing the wound. You may "pad dry" the wound, but do not rub, as this may open up he wound and pre-dispose to wound infection. -Do not apply lotions or creams to incision site, unless instructed otherwise. -Observe for redness, swelling, or drainage. Please call the clinic immediately if you have fevers, chills with warmth/redness surrounding wound site or if you notice pus drainage from the wound site Activity -No heavy lifting objects greater than 10 pounds. -No driving while on narcotic pain medication. -You may be weight-bear as tolerated on both of your lower extremities. -Use crutches or a walker for ambulation. -Posterior hip precautions for 6 weeks: No bending the hip past 90 degrees. Do not allow the leg to cross the midline of your body (adduction). No twisting motions. Ask your physical therapist to review these precautions with you. Reducing the Risk of Blood Clots -You will need to complete a total 4 week course of enteric coated aspirin 325 mg twice daily. -Wear knee high compression hose 23 hours per day. Discharge Pain Medications -You will be given a prescription for pain medication. Wean off as tolerated. Do not wait to take the pain medication until the pain is severe, as it will be difficult to "catch up" once this occurs. The pain medication usually reaches its full effect ~1 hour after ingesting. -Your prescribed pain medication may contain Tylenol. You must be careful not to exceed 4,000 mg (4 g) of Tylenol (or generic equivalent), from all sources, within a single 24-hour period. -Some common side effects of the narcotic pain medications (Percocet, Oxycodone , Vicodin, etc) include nausea and itching. Benadryl is a great over the counter medication that helps calm your stomach, decreases your anxiety levels, and minimizes the itching. You can easily purchase this at your local pharmacy as an [id number] medication. Please abide by the instructions as printed on t-he bottle. If your nausea persists, make sure to take small amounts of crackers or other 8th grade mathematics teacher foods. [-Resume 50,000 units of vitamin D2 daily and 1200 mg of calcium supplementation per day.] Referrals: Ethan Lam MD [Primary Care Provider] - Prescriptions: amLODIPine [Norvasc] 5 mg PO DAILY #30 tablet HYDROcodone/Acet 5/325 mg [[place] 5-325 mg] 1 tab PO Q6H PRN #25 tablet PRN Reason: Moderate Pain (4-6) <Kathe Davis - Last Filed: 10/09/17 09:59> Date of Encounter: 10/09/17 Assessment and Plan (1) Elevated troponin Status: Acute I examined this patient and my medical decision-making was reviewed with the Resident Physician. I agree with the documented findings, disposition and treatment plan as described except to the extent set forth below. non obstructive CAD with moderate to severe , requires follow up ECHO as an OP for . Afib rate controlled not on AC due to fall risk, pt understands risk of CVA with Afib not on AC on ASA only. To be evaluated after hip surgery for risk of fall by PT and OT. If acceptable likely benefit from Coumadin. Discussion w patient/family: The assessment and plan as outlined above was discussed with the patient and/or family members who expressed understanding and agreement. All questions were answered. Thank you for involving us in the care of your patient. Please call with any questions. Results 10/03/17 05:38 10/03/17 05:38
--- NOTE | 2017-10-04 10:34 | Discharge Summary ---
Date of Encounter: 10/04/17 Time of Encounter: 10:24 - Discharge Diagnosis (1) Subcapital fracture of neck of right femur Priority: Primary Status: Acute Comments: Status post right hip hemiarthroplasty on September 29 Qualifiers: Encounter type: initial encounter Fracture type: closed Qualified Code(s) : S72.011A - Unspecified intracapsular fracture of right femur, initial encounter for closed fracture (2) Hip fracture Priority: Primary Status: Acute Qualifiers: Encounter type: initial encounter Fracture type: closed Laterality: right Qualified Code(s): S72.001A - Fracture of unspecified part of neck of right femur, initial encounter for closed fracture (3) Moderate aortic stenosis Priority: Secondary Status: Acute (4) Elevated troponin Priority: Secondary Status: Acute Comments: Secondary to the demand ischemia (5) Presence of cardiac pacemaker Priority: Secondary Status: Acute (6) Atrial flutter Priority: Secondary Status: Acute Qualifiers: Atrial flutter type: unspecified Qualified Code(s): I48.92 - Unspecified atrial flutter (7) HTN (hypertension) Priority: Secondary Status: Chronic Qualifiers: Hypertension type: unspecified Qualified Code(s): I10 - Essential (primary ) hypertension (8) ARF (acute renal failure) Priority: Secondary Status: Acute Comments: Creatinine improved from 1.44 down to 0.87 Qualifiers: Acute renal failure type: unspecified Qualified Code(s): N17.9 - Acute kidney failure, unspecified - Discharge Medications Prescriptions: amLODIPine [Norvasc] 5 mg PO DAILY #30 tablet HYDROcodone/Acet 5/325 mg [[place] 5-325 mg] 1 tab PO Q6H PRN #25 tablet PRN Reason: Moderate Pain (4-6) Home Medications: Aspirin 81 mg PO DAILY 09/28/17 [History] Lisinopril [Zestril] 20 mg PO DAILY 09/28/17 [History] Metoprolol Succinate 25 mg PO DAILY 09/28/17 [History] HYDROcodone/Acet 5/325 mg [[place] 5-325 mg] 1 tab PO Q6H PRN #25 tablet 10/04/17 [Rx] amLODIPine [Norvasc] 5 mg PO DAILY #30 tablet 10/04/17 [Rx] Allergies/Adverse Reactions: 3 Allergy/AdvReac Type Severity Reaction Status Date / Time No Known Allergies Allergy Verified 09/28/17 14:16 Procedures/tests Complete & Pending: Procedures Performed prior 72 hours Category Date Time Status CL Cardiac Catheterization [CL] Routine Stencil Maker 10/02/17 10:34 Ordered EV LINNEA transesophageal echo Routine Y 10/03/17 10:29 Completed Date of admission: 09/28/17 17:50 Primary care physician: Ethan Lam MD Consults: 09/29/17 18:05 Consult to Occupational Therapy [CONS] Routine Comment: Evaluate, develop and implement POC Reason for Consult: post hip surgery Consult to Orthopedic Navigator [CONS] [CONS] Routine Consult to Physical Therapy [CONS] Routine Comment: Evaluate, develop and implement POC Reason for Consult: post hip surgery Consult to Spanner Operator [CONS] Routine Reason for SW Consult: post -op hip fracture RT Post Op Consult [CONS] Routine - Patient Status Disposition: Transfer SNF Condition: Good Overall status at discharge: patient is progressing back to baseline - Discharge Instructions Follow Up With: Ethan Lam MD [Primary Care Provider] - Additional Instructions: Follow-up with primary care physician after discharge from rehabilitation facility. Continue aspirin. Fall precautions. DISCHARGE INSTRUCTIONS Per Dr. Brar from orthopedic surgery Total Hip Replacement/Hip Hemiarthroplasty Wound Care -Keep wound / incision area clean and dry. -May remove dressing after 5 days and start daily dry dressing changes. -No baths or swimming until otherwise instructed. -After 14 days, you may begin to shower only if no drainage is present. No submerging the wound under standing water until cleared by your physician (no baths, hot tubs, swimming pools, etc). Sponge baths are the best way to perform personal hygiene while at the same time protecting the wound from moisture. -No scrubbing the wound. You may "pad dry" the wound, but do not rub, as this may open up he wound and pre-dispose to wound infection. -Do not apply lotions or creams to incision site, unless instructed otherwise. -Observe for redness, swelling, or drainage. Please call the clinic immediately if you have fevers, chills with warmth/redness surrounding wound site or if you notice pus drainage from the wound site Activity -No heavy lifting objects greater than 10 pounds. -No driving while on narcotic pain medication. -You may be weight-bear as tolerated on both of your lower extremities. -Use crutches or a walker for ambulation. -Posterior hip precautions for 6 weeks: No bending the hip past 90 degrees. Do not allow the leg to cross the midline of your body (adduction). No twisting motions. Ask your physical therapist to review these precautions with you. Reducing the Risk of Blood Clots -You will need to complete a total 4 week course of enteric coated aspirin 325 mg twice daily. -Wear knee high compression hose 23 hours per day. Discharge Pain Medications -You will be given a prescription for pain medication. Wean off as tolerated. Do not wait to take the pain medication until the pain is severe, as it will be difficult to "catch up" once this occurs. The pain medication usually reaches its full effect ~1 hour after ingesting. -Your prescribed pain medication may contain Tylenol. You must be careful not to exceed 4,000 mg (4 g) of Tylenol (or generic equivalent), from all sources, within a single 24-hour period. -Some common side effects of the narcotic pain medications (Percocet, Oxycodone , Vicodin, etc) include nausea and itching. Benadryl is a great over the counter medication that helps calm your stomach, decreases your anxiety levels, and minimizes the itching. You can easily purchase this at your local pharmacy as an hmtf-rea-uhtudqi medication. Please abide by the instructions as printed on t-he bottle. If your nausea persists, make sure to take small amounts of crackers or other jewelry department supervisor foods. [-Resume 50,000 units of vitamin D2 daily and 1200 mg of calcium supplementation per day.] - Diet and Activity Activity: increase activity as tolerated Diet: low fat, low cholesterol Hospital course: Mr. Sánchez is a 82 year old male with medical hx of arthritis, systolic CHF, COPD not O2 dep, dual-chamber pacemaker Versa [id number] implanted 2009, atrial flutter not on anticoagulation, tobacco use, and CAD presented from the ED with chief complaint right hip pain after falling . Patient stated he became dizzy with standing, felt as though the room is spinning and fell. He stated he could not raise his right leg and his pain level is a 6/10. Stated morphine helped. He also reported he was chronically dizzy which worsened over the past few years. Very hard of hearing. Underwent a right hip hemiarthroplasty on September 29. His troponins became elevated, cardiology was consulted and the patient was recommended to have cardiac catheterization as his echocardiogram showed an ejection fraction of 40-45% and also wall motion abnormalities. Moderate to severe aortic stenosis was suggested by the echocardiogram. LHC showed mild lesions proximal LAD, proximal circ, mid circ, no stenting indicated; aortic stenosis showed moderate severity, no valve replacement indicated, cardiology will follow pt in out-pt setting , patient only candidate for coumadin, but due to fall risk with recent R hip fracture as well as patient hx non-compliance (1 pacemaker check in over 5 years), [id number] score 5 (age2, HTN, hx stroke, hx vasc disease) cardiology recommended rate control for aflutter, will not initiate coumadin. Continue aspirin alone. Transesophageal echocardiogram final report pending but no major abnormalities reported per cardiology note. - Time Spent with Patient Total time spent providing and/or coordinating discharge services: Greater than 30 minutes (40 min) - Constitutional Vitals: Temp Pulse Resp BP Pulse Ox 98.0 F 65 18 151/73 95 10/04/17 09:54 10/04/17 09:54 10/04/17 09:54 10/04/17 09:54 10/04/17 09:54 General appearance: Present: cooperative, mild distress, A&O X 3, pleasant, answers questions appropriately - Head Head exam: Present: atraumatic, normocephalic - Eye Eye exam: Present: PERRL, conjuntiva pink, sclera anicteric Pupils: Present: PERRL - Neck Neck exam general surgery: Present: supple, trachea midline. Absent: lymphadenopathy - Respiratory Respiratory exam: Present: CTAB. Absent: accessory muscle use, rales, rhonchi, wheezes - Cardiovascular Cardiovascular exam: Present: irregular rhythm, RRR, +S1, +S2. Absent: diastolic murmur, gallop, rubs, systolic murmur - GI/Abdominal GI/Abdominal exam: Present: normal bowel sounds, soft, no peritoneal signs. Absent: distended, tenderness - Extremities Exam Extremities exam: Present: warm, radial pulses palpable and symmetrical. Absent : calf tenderness, cyanotic, pedal edema - Neurological Exam Neurological exam: Present: CN II-XII intact, oriented X3, no focal deficits. Absent: pronater drift, facial droop, speech deficit - Skin Skin exam: Present: dry. Absent: intact (Right hip surgical wound without signs of hematoma or infection. Right inguinal cardiac catheterization wound without signs of hematoma or infection either) - VTE Documentation of Mechanical Device: Venous foot pump, device
--- NOTE | 2017-10-04 10:56 | Physician Discharge Referral ---
[facility]Care Referral Info Provider in Charge after Transfer: PCP Institutional Level of Care: Skilled - Diagnosis (1) Subcapital fracture of neck of right femur Status: Acute (2) Hip fracture Status: Acute (3) Moderate aortic stenosis Status: Acute (4) Elevated troponin Status: Acute (5) Presence of cardiac pacemaker Status: Acute (6) Atrial flutter Status: Acute (7) HTN (hypertension) Status: Chronic (8) ARF (acute renal failure) Status: Acute - Transfer Medications Prescriptions: amLODIPine [Norvasc] 5 mg PO DAILY #30 tablet HYDROcodone/Acet 5/325 mg [[place] 5-325 mg] 1 tab PO Q6H PRN #25 tablet PRN Reason: Moderate Pain (4-6) Home Medications: Aspirin 81 mg PO DAILY 09/28/17 [History] Lisinopril [Zestril] 20 mg PO DAILY 09/28/17 [History] Metoprolol Succinate 25 mg PO DAILY 09/28/17 [History] HYDROcodone/Acet 5/325 mg [[place] 5-325 mg] 1 tab PO Q6H PRN #25 tablet 10/04/17 [Rx] amLODIPine [Norvasc] 5 mg PO DAILY #30 tablet 10/04/17 [Rx] Allergies/Adverse Reactions: 3 Allergy/AdvReac Type Severity Reaction Status Date / Time No Known Allergies Allergy Verified 09/28/17 14:16 - Respiratory Orders Smoking Cessation: Smoking cessation has been advised. For more information, call the [place] Tobacco Quit Line at 5-888-QXPX-NOW. - Advance Directives Code Status: Full Code - Rehabiliation Orders Other: Follow-up with primary care physician after discharge from rehabilitation facility. Continue aspirin. Fall precautions. DISCHARGE INSTRUCTIONS Per Dr. Brar from orthopedic surgery Total Hip Replacement/Hip Hemiarthroplasty Wound Care -Keep wound / incision area clean and dry. -May remove dressing after 5 days and start daily dry dressing changes. -No baths or swimming until otherwise instructed. -After 14 days, you may begin to shower only if no drainage is present. No submerging the wound under standing water until cleared by your physician (no baths, hot tubs, swimming pools, etc). Sponge baths are the best way to perform personal hygiene while at the same time protecting the wound from moisture. -No scrubbing the wound. You may "pad dry" the wound, but do not rub, as this may open up he wound and pre-dispose to wound infection. -Do not apply lotions or creams to incision site, unless instructed otherwise. -Observe for redness, swelling, or drainage. Please call the clinic immediately if you have fevers, chills with warmth/redness surrounding wound site or if you notice pus drainage from the wound site Activity -No heavy lifting objects greater than 10 pounds. -No driving while on narcotic pain medication. -You may be weight-bear as tolerated on both of your lower extremities. -Use crutches or a walker for ambulation. -Posterior hip precautions for 6 weeks: No bending the hip past 90 degrees. Do not allow the leg to cross the midline of your body (adduction). No twisting motions. Ask your physical therapist to review these precautions with you. Reducing the Risk of Blood Clots -You will need to complete a total 4 week course of enteric coated aspirin 325 mg twice daily. -Wear knee high compression hose 23 hours per day. Discharge Pain Medications -You will be given a prescription for pain medication. Wean off as tolerated. Do not wait to take the pain medication until the pain is severe, as it will be difficult to "catch up" once this occurs. The pain medication usually reaches its full effect ~1 hour after ingesting. -Your prescribed pain medication may contain Tylenol. You must be careful not to exceed 4,000 mg (4 g) of Tylenol (or generic equivalent), from all sources, within a single 24-hour period. -Some common side effects of the narcotic pain medications (Percocet, Oxycodone , Vicodin, etc) include nausea and itching. Benadryl is a great over the counter medication that helps calm your stomach, decreases your anxiety levels, and minimizes the itching. You can easily purchase this at your local pharmacy as an rkjg-san-vxtqdvv medication. Please abide by the instructions as printed on t-he bottle. If your nausea persists, make sure to take small amounts of crackers or other metal casket assembler foods. [-Resume 50,000 units of vitamin D2 daily and 1200 mg of calcium supplementation per day. CERTIFICATION: I certify that the transfer of the above named patient to an Extended Care Facility is necessary for the continuing treatment of the diagnosis listed. The above information is true and accurate reflection of patient's current condition. Confidential - Redisclosure prohibited without a patient's written consent.
[2017-10-05] MEDS: Lisinopril 20 MG TABLET PO SCH (08:43)
[2017-10-05] MEDS: Metoprolol XL (24 HR) Succ 25 MG TAB.ER.24H PO SCH (08:43)
[2017-10-05] MEDS: Aspirin 81 MG TAB.CHEW PO SCH (08:43)
[2017-10-05] MEDS: *HR* HYDROcodone/Acet 5/325 mg TABLET PO PRN (08:44)
--- NOTE | 2017-10-05 10:38 | Internal Med Progress Note ---
Date of Encounter: 10/05/17 Time of Encounter: 10:36 - Assessment and plan (1) Subcapital fracture of neck of right femur Current Visit: Yes Status: Acute Assessment and plan: Current Visit: Yes Status: Acute Assessment and plan: Status post right hip hemiarthroplasty on September 29 continue physical therapy LHC showed mild lesions proximal LAD, proximal circ, mid circ, no stenting indicated; aortic stenosis showed moderate severity, no valve replacement indicated, cardiology will follow pt in out-pt setting , patient only candidate for coumadin, but due to fall risk with recent R hip fracture as well as patient hx non-compliance (1 pacemaker check in over 5 years), [id number] score 5 (age2, HTN, hx stroke, hx vasc disease) cardiology recommended rate control for aflutter, will not initiate coumadin. Continue aspirin alone. Transesophageal echocardiogram final reported ef 50%moderate to severe aortic stenosis Cardiology recommended outpatient follow up stable to be discharged Qualifiers: Encounter type: initial encounter Fracture type: closed Qualified Code(s) : S72.011A - Unspecified intracapsular fracture of right femur, initial encounter for closed fracture (2) Elevated troponin Current Visit: Yes Status: Acute Assessment and plan: adynamic flat troponin, cardiology is on board, patient has CAD and abnormal echocardiogram with wall motion abnormalities and prior ejection fraction from 40-45% also showing moderate to severe aortic stenosis, cardiology is planing a cardiac catheterization today (3) CHF (congestive heart failure) Current Visit: Yes Status: Chronic Assessment and plan: Chronic systolic CHF well compensated EF 40-45%, cardiology recommended, cardiac cath tomorrow per patient discusssion Continue lisinopril and a beta marlen Qualifiers: Congestive heart failure type: unspecified congestive heart failure type Congestive heart failure chronicity: chronic Qualified Code(s): I50.9 - Heart failure, unspecified (4) COPD (chronic obstructive pulmonary disease) Current Visit: Yes Status: Chronic Assessment and plan: stable COPD, no home O2 no wheezing Qualifiers: COPD type: emphysema Emphysema type: unspecified Qualified Code(s): J43.9 - Emphysema, unspecified (5) CAD (coronary artery disease) Current Visit: Yes Status: Chronic Qualifiers: Coronary Disease-Associated Artery/Lesion type: [place] artery [place] vs. transplanted heart: [place] heart Associated angina: angina presence unspecified Qualified Code(s): I25.10 - Atherosclerotic heart disease of [place] coronary artery without angina pectoris (6)Aortic stenosis Current Visit: Yes Status: Acute Per cardiology: -MOderate-servere per TTE. (7) Atrial flutter Current Visit: Yes Status: Acute Assessment and plan: Heart rate is well controlled continue beta Dago Qualifiers: Atrial flutter type: unspecified Qualified Code(s): I48.92 - Unspecified atrial flutter (8) HTN (hypertension) Current Visit: Yes Status: Chronic Assessment and plan: stable Qualifiers: Hypertension type: unspecified Qualified Code(s): I10 - Essential (primary ) hypertension (9) ARF (acute renal failure) Current Visit: Yes Status: Acute Assessment and plan: Acute and a failure postop, Cr trending down, try to avoid IV fluids due to CHF Qualifiers: Acute renal failure type: unspecified Qualified Code(s): N17.9 - Acute kidney failure, unspecified Qualifiers: Encounter type: initial encounter Fracture type: closed Qualified Code(s) : S72.011A - Unspecified intracapsular fracture of right femur, initial encounter for closed fracture - Subjective Interval history: No complaints today Denies any chest pain, has still mild pain on the right hip. Denies any shortness of breath, no fevers, no abdominal pain or diarrhea - Constitutional Vitals: Temp Pulse Resp BP Pulse Ox 98.1 F 60 14 166/84 97 10/05/17 07:40 10/05/17 07:40 10/05/17 07:40 10/05/17 07:40 10/05/17 07:40 General appearance: Present: cooperative, mild distress, A&O X 3, pleasant, answers questions appropriately Exam: - Head Head exam: Present: atraumatic, normocephalic - Eye Eye exam: Present: PERRL, conjuntiva pink, sclera anicteric Pupils: Present: PERRL - Neck Neck exam general surgery: Present: supple, trachea midline. Absent: lymphadenopathy - Respiratory Respiratory exam: Present: CTAB. Absent: accessory muscle use, rales, rhonchi, wheezes - Cardiovascular Cardiovascular exam: Present: irregular rhythm, RRR, +S1, +S2. Absent: diastolic murmur, gallop, rubs, systolic murmur - GI/Abdominal GI/Abdominal exam: Present: normal bowel sounds, soft, no peritoneal signs. Absent: distended, tenderness - Extremities Exam Extremities exam: Present: warm, radial pulses palpable and symmetrical. Absent : calf tenderness, cyanotic, pedal edema - Neurological Exam Neurological exam: Present: CN II-XII intact, oriented X3, no focal deficits. Absent: pronater drift, facial droop, speech deficit - Skin Skin exam: Present: dry. Absent: intact (Right hip surgical wound without signs of hematoma or infection. Right inguinal cardiac catheterization wound without signs of hematoma or infection either) - Internal Medicine: Result - Labs CBC & Chem 7: 10/03/17 05:38 10/03/17 05:38 - ABG Interpretation ABG results: PT/INR, D-dimer PT 13.5 Seconds (9.4-12.1) H 09/29/17 00:39 - VTE Documentation of Mechanical Device: Intermittent pneumatic compression device Consult Discharge Plan - Plan Additional Instructions: Follow-up with primary care physician after discharge from rehabilitation facility. Continue aspirin. Fall precautions. DISCHARGE INSTRUCTIONS Per Dr. Brar from orthopedic surgery Total Hip Replacement/Hip Hemiarthroplasty Wound Care -Keep wound / incision area clean and dry. -May remove dressing after 5 days and start daily dry dressing changes. -No baths or swimming until otherwise instructed. -After 14 days, you may begin to shower only if no drainage is present. No submerging the wound under standing water until cleared by your physician (no baths, hot tubs, swimming pools, etc). Sponge baths are the best way to perform personal hygiene while at the same time protecting the wound from moisture. -No scrubbing the wound. You may "pad dry" the wound, but do not rub, as this may open up he wound and pre-dispose to wound infection. -Do not apply lotions or creams to incision site, unless instructed otherwise. -Observe for redness, swelling, or drainage. Please call the clinic immediately if you have fevers, chills with warmth/redness surrounding wound site or if you notice pus drainage from the wound site Activity -No heavy lifting objects greater than 10 pounds. -No driving while on narcotic pain medication. -You may be weight-bear as tolerated on both of your lower extremities. -Use crutches or a walker for ambulation. -Posterior hip precautions for 6 weeks: No bending the hip past 90 degrees. Do not allow the leg to cross the midline of your body (adduction). No twisting motions. Ask your physical therapist to review these precautions with you. Reducing the Risk of Blood Clots -You will need to complete a total 4 week course of enteric coated aspirin 325 mg twice daily. -Wear knee high compression hose 23 hours per day. Discharge Pain Medications -You will be given a prescription for pain medication. Wean off as tolerated. Do not wait to take the pain medication until the pain is severe, as it will be difficult to "catch up" once this occurs. The pain medication usually reaches its full effect ~1 hour after ingesting. -Your prescribed pain medication may contain Tylenol. You must be careful not to exceed 4,000 mg (4 g) of Tylenol (or generic equivalent), from all sources, within a single 24-hour period. -Some common side effects of the narcotic pain medications (Percocet, Oxycodone , Vicodin, etc) include nausea and itching. Benadryl is a great over the counter medication that helps calm your stomach, decreases your anxiety levels, and minimizes the itching. You can easily purchase this at your local pharmacy as an orir-iye-eiginfk medication. Please abide by the instructions as printed on t-he bottle. If your nausea persists, make sure to take small amounts of crackers or other glaze handler foods. [-Resume 50,000 units of vitamin D2 daily and 1200 mg of calcium supplementation per day.] Referrals: Ethan Lam MD [Primary Care Provider] - Prescriptions: amLODIPine [Norvasc] 5 mg PO DAILY #30 tablet HYDROcodone/Acet 5/325 mg [[place] 5-325 mg] 1 tab PO Q6H PRN #25 tablet PRN Reason: Moderate Pain (4-6)
[2017-10-05 12:09] VITALS: BP 172/82
--- NOTE | 2017-10-06 13:04 | Physician Discharge Referral ---
Home Health/Hosp Referral Info Transfer to: Home Health Provider in Charge Post Discharge: PCP - Diagnosis (1) Subcapital fracture of neck of right femur Status: Acute - Respiratory Orders Smoking Cessation: Smoking cessation has been advised. For more information, call the [place] Tobacco Quit Line at 1-366-GSQJ-NOW. - Diet/Nutrition Diet/Nutrition Orders: No Added Salt (PAVEL) - Services Needed Following services are medically necessary services: Nursing, Home Health Aide, Physical Therapy, Occupational Therapy Home Care Orders: Follow-up with primary care physician after discharge from rehabilitation facility. Continue aspirin. Fall precautions. DISCHARGE INSTRUCTIONS Per Dr. Brar from orthopedic surgery Total Hip Replacement/Hip Hemiarthroplasty Wound Care -Keep wound / incision area clean and dry. -May remove dressing after 5 days and start daily dry dressing changes. -No baths or swimming until otherwise instructed. -After 14 days, you may begin to shower only if no drainage is present. No submerging the wound under standing water until cleared by your physician (no baths, hot tubs, swimming pools, etc). Sponge baths are the best way to perform personal hygiene while at the same time protecting the wound from moisture. -No scrubbing the wound. You may "pad dry" the wound, but do not rub, as this may open up he wound and pre-dispose to wound infection. -Do not apply lotions or creams to incision site, unless instructed otherwise. -Observe for redness, swelling, or drainage. Please call the clinic immediately if you have fevers, chills with warmth/redness surrounding wound site or if you notice pus drainage from the wound site Activity -No heavy lifting objects greater than 10 pounds. -No driving while on narcotic pain medication. -You may be weight-bear as tolerated on both of your lower extremities. -Use crutches or a walker for ambulation. -Posterior hip precautions for 6 weeks: No bending the hip past 90 degrees. Do not allow the leg to cross the midline of your body (adduction). No twisting motions. Ask your physical therapist to review these precautions with you. Reducing the Risk of Blood Clots -You will need to complete a total 4 week course of enteric coated aspirin 325 mg twice daily. -Wear knee high compression hose 23 hours per day. Discharge Pain Medications -You will be given a prescription for pain medication. Wean off as tolerated. Do not wait to take the pain medication until the pain is severe, as it will be difficult to "catch up" once this occurs. The pain medication usually reaches its full effect ~1 hour after ingesting. -Your prescribed pain medication may contain Tylenol. You must be careful not to exceed 4,000 mg (4 g) of Tylenol (or generic equivalent), from all sources, within a single 24-hour period. -Some common side effects of the narcotic pain medications (Percocet, Oxycodone , Vicodin, etc) include nausea and itching. Benadryl is a great over the counter medication that helps calm your stomach, decreases your anxiety levels, and minimizes the itching. You can easily purchase this at your local pharmacy as an [id number] medication. Please abide by the instructions as printed on t-he bottle. If your nausea persists, make sure to take small amounts of crackers or other pigment grinder foods. [-Resume 50,000 units of vitamin D2 daily and 1200 mg of calcium supplementation per day - Transfer Medications Prescriptions: amLODIPine [Norvasc] 5 mg PO DAILY #30 tablet HYDROcodone/Acet 5/325 mg [[place] 5-325 mg] 1 tab PO Q6H PRN #25 tablet PRN Reason: Moderate Pain (4-6) Home Medications: Aspirin 81 mg PO DAILY 09/28/17 [History] Lisinopril [Zestril] 20 mg PO DAILY 09/28/17 [History] Metoprolol Succinate 25 mg PO DAILY 09/28/17 [History] HYDROcodone/Acet 5/325 mg [[place] 5-325 mg] 1 tab PO Q6H PRN #25 tablet 10/04/17 [Rx] amLODIPine [Norvasc] 5 mg PO DAILY #30 tablet 10/04/17 [Rx] Allergies/Adverse Reactions: 3 Allergy/AdvReac Type Severity Reaction Status Date / Time No Known Allergies Allergy Verified 09/28/17 14:16 Certification: Further, I certify that my clinical findings support that this patient is homebound (i.e. absences from home require considerable and taxing effort and are for medical reasons or tenriism services or infrequently or short duration when for other reasons) because: Homebound Reason: Patient requires assistance of a person or device to safely leave home Attestation: My signature below is to certify that this patient is under my care and that I, or nurse practitioner, or a physician's orthodontic technician assistant working with me, has a face-to -face encounter with this patient.
== END 2017-10-05 14:53 | DRG 470 ==
LOC: EMEROO 12:58 → 3ANU 12:58 → SUATTDRO 17:50
PROVIDERS: ADMIT Hospitalist; ATTEND Internal Medicine

== ENCOUNTER 2019-06-09 13:04 | Inpatient (IN) ==
--- NOTE | 2019-06-09 13:13 | Emergency Department Note ---
Disposition Clinical Impression: Pseudomonas urinary tract infection Disposition: Admitted As Inpatient Condition: Good Time of Disposition: 14:00 General Adult HPI - General Stated complaint: possible uti Time Seen by Provider: 06/09/19 13:09 Nursing Notes Reviewed: Yes Vital Signs Reviewed: Yes - History of Present Illness HPI Narrative: 84-year-old male with history of left-sided blindness, MDD, recurrent UTI who presents the emergency department with complaints of multi drug-resistant urinary tract infection. The patient has been on several antibiotic courses as an outpatient but urinalysis with sensitivity shows multidrug resistant urinary tract infection sensitive only to IV antibiotics. The patient does admit to increased urinary frequency and dysuria but otherwise denies any fever, chills, chest pain, shortness of breath, flank pain, abdominal pain. Patient does not have indwelling Mukherjee catheter and has not required on in the past. Patient is DNR CC per paperwork from [facility]. - Related Data Home Medications Medication Instructions Recorded Confirmed Cholecalciferol (Vitamin D3) 2,000 unit PO DAILY 11/07/18 06/09/19 [Vitamin D3] Lisinopril [Zestril] 20 mg PO DAILY 11/07/18 06/09/19 Melatonin [Melatin] 3 mg PO HS PRN 11/07/18 06/09/19 Metoprolol XL (24 HR) Succ [Toprol 25 mg PO DAILY 11/07/18 06/09/19 Xl] Tamsulosin [Flomax] 0.4 mg PO DAILY 11/07/18 06/09/19 Cyanocobalamin (B-12) [Vitamin B12] 1,000 mcg PO DAILY 01/21/19 06/09/19 Ferrous Sulfate [Iron] 325 mg PO DAILY 01/21/19 06/09/19 Phenazopyridine [Pyridium] 100 mg PO TID PRN 01/21/19 06/09/19 Atorvastatin [Lipitor] 40 mg PO DAILY 02/04/19 06/09/19 Latanoprost [Xalatan] 1 drop LEFT EYE HS 02/04/19 06/09/19 Polyethylene Glycol 3350 17 gm PO DAILY PRN 02/04/19 06/09/19 [Natura-Lax] Acetaminophen [Tylenol] 650 mg PO Q4H PRN 04/23/19 06/09/19 Amlodipine Besylate 5 mg PO DAILY 04/23/19 06/09/19 Aspirin [Adult Aspirin Regimen] 81 mg PO QAM 04/23/19 06/09/19 Docusate Sodium [Dok] 100 mg PO DAILY PRN 04/23/19 06/09/19 Guaifenesin [Mucus ER] 600 mg PO Q12H PRN 04/23/19 06/09/19 Famotidine [Heartburn Prevention] 20 mg PO PRN PRN 06/09/19 06/09/19 Megestrol Acetate [Megace] 400 mg PO DAILY 06/09/19 06/09/19 Oxybutynin [Ditropan] 5 mg PO TID PRN 06/09/19 06/09/19 Previous Rx's Medication Instructions Recorded Cefepime HCl [Maxipime] 1,000 mg IVPB Q12HR 14 Days vial 06/10/19 Allergies Allergy/AdvReac Type Severity Reaction Status Date / Time No Known Allergies Allergy Verified 04/22/19 15:51 Review of Systems: ROS per history of present illness, all other systems reviewed and negative or normal. All systems ED: reviewed and negative except as stated. Review of Systems: As Per HPI Past Medical History - Past Medical History Medical history: Reports: arthritis, atrial fibrillation, CHF, COPD, coronary artery disease, CVA Surgical history: Reports: pacemaker Psychiatric history: Reports: no psych history - Social History Smoking Status: Former smoker Smokeless Tobacco Status: No Alcohol use: Reports: none Drug use: Reports: none Physical Exam General: Conversant. No apparent distress. Follow commands. Appears stated age. Neck: No JVD. Trachea midline. Neck supple. Eyes: PERRL. No scleral icterus. HENT: Normocephalic and atraumatic. Moist mucus membranes. Cardiovascular: Regular rate and rhythm. Normal S1 and S2. No murmurs appreciat ed. Normal capillary refill. Extremities well perfused with 2+ distal pulses bilaterally. No edema. Pulmonary: Normal and equal breath sounds bilaterally, anteriorly and posteriorly. No wheezes, rales, or rhonchi. Not in respiratory distress. Speaks in full sentences. Abdomen: Soft, nondistended, and tontender. No bruits or masses. No guarding. Neuro: Alert and oriented x3. No slurred speech. No focal deficits noted. Skin: No rashes noted on visualized skin. Musculoskeletal: No bony abnormalities visualized. Moves all extremities. Psych: Normal mood. Pleasant. Makes appropriate eye contact. Course Vital Signs Temperature 98.1 F 06/09/19 13:08 Pulse Rate 64 06/09/19 13:08 Respiratory Rate 16 06/09/19 13:08 Blood Pressure 143/65 06/09/19 13:08 O2 Sat by Pulse Oximetry 100 06/09/19 13:08 Temperature 98.1 F 06/09/19 13:08 Pulse Rate 60 06/09/19 13:53 Respiratory Rate 16 06/09/19 13:53 Blood Pressure 128/65 06/09/19 13:53 O2 Sat by Pulse Oximetry 99 06/09/19 13:53 Oxygen Delivery Oxygen Delivery Room Air Medical Decision Making - MDM Narrative Medical decision making narrative: 84-year-old male who presents from assisted living facility secondary to multidrug resistant UTI. The patient has had multiple antibiotic courses as an outpatient but sensitivities resulted today and shows sensitivity only to IV antibiotics. Patient's vital signs are stable. He is well-appearing. He has no evidence of sepsis including no tachycardia, hypotension or fever. Obtained laboratory evaluation CBC, BMP and repeat urinalysis as well as blood cultures. Urinalysis shows sensitivity to cefepime, Zosyn, tobramycin, and gentamicin. Given the patient does continue to be symptomatic we will place the patient on IV cefepime and admit for likely infectious disease consultation for further management. Patient may have some component of urinary retention to cause these recurrent UTIs but has been able to provide urine here in the ED. The patient is DNR CC confirmed by outpatient paperwork. Discussed case with on-call hospitalist Dr. Quinn who agrees with plan for admission and accepts the patient to the inpatient service. Patient agrees with and understands course of treatment plan including plan for admission. All questions answered. - Medical Records Medical records reviewed: Yes I reviewed the patient's medical records. - Lab Data Lab results reviewed: Yes I reviewed the patient's lab results. Result diagrams: 06/11/19 09:16 06/10/19 04:15 Lab Results 06/09/19 06/09/19 06/09/19 Range/Units 13:30 13:30 13:40 WBC 8.1 (4.3-11.1) K/mcL RBC 4.92 (4.19-5.50) M/mcL Hgb 14.7 (12.9-16.9) g/dL Hct 46.0 (37.5-50.1) % MCV 93.5 (83.0-100.0) fL MCH 29.9 (28.0-33.3) pg MCHC 32.0 (31.6-35.5) g/dL RDW 14.5 (11.5-14.5) % Plt Count 277 (140-400) K/mcL MPV 9.4 (9.4-12.4) fL Immature Gran % 0.4 (0-4) % Seg Neutrophils % 65.5 % Lymphocytes % 19.3 % Monocytes % 11.2 % Eosinophils % 3.2 % Basophils % 0.4 % Neutrophils # 5.3 (1.6-8.9) K/mcL Lymphocytes # 1.6 (0.6-4.6) K/mcL Monocytes # 0.9 (0.0-1.3) K/mcL Eosinophils # 0.3 (0.0-0.6) K/mcL Basophils # 0.0 (0.0-0.2) K/mcL Sodium 140 (136-145) mEq/L Potassium 4.1 (3.5-5.1) mEq/L Chloride 104 (98-107) mEq/L Carbon Dioxide 29 (23-29) mEq/L BUN 19 (8-23) mg/dL Creatinine 1.15 (0.70-1.30) mg/dL Est GFR ( Amer) > 60 (> 60) Est GFR (Non-Af Amer) > 60 (> 60) BUN/Creatinine Ratio 17 (6-26) Glucose 125 H (70-105) mg/dL Calculated Osmolality 294 (280-300) Calcium 9.5 (8.6-10.3) mg/dL Urine Color Yellow (Yellow) Urine Clarity Cloudy A (Clear) Urine pH 6.0 (5.0-8.0) pH Units Ur Specific [place] 1.018 (1.010-1.025) Urine Protein 30 H (Neg-Trace) mg/dL Urine Glucose (UA) Normal (Normal) mg/dL Urine Ketones Negative (Negative) mg/dL Urine Blood Small H (Negative) Urine Nitrite Positive A (Negative) Urine Bilirubin Negative (Negative) Urine Urobilinogen Normal (Normal) mg/dL Ur Leukocyte Esterase Large H (Negative) Urine Microscopic RBC 5-15 H (0-3) per hpf Urine Microscopic WBC TNTC H (0-3) per hpf Ur Squamous Epith Cells None Seen (None-Few) per lpf Urine Bacteria Few (None-Few) per hpf Hyaline Casts None Seen (None-Few) per lpf Ur Culture Indicated? YES A (NO) Attestation Statement - Attestation Attestation: I have seen this patient with the resident physician, I have personally evaluated this patient. I had reviewed the chart and document dictation by the resident physician and aM in agreement with the information documented by the resident physician. Please see documentation by the resident physician for complete chart including past medical history, family medical history, review of systems, current history and physical and laboratory and imaging studies. I was present for all procedures, provided direct supervision for all proc edures, was present for the entirety of all procedures and provided direct guidance during the procedures. Please see documentation by the resident physician for any procedures performed. I have reviewed all interpretations of EKGs, and reviewed all EKGs performed on patient's as well. I have also reviewed reports of imaging as provided by radiology.
--- NOTE | 2019-06-09 13:33 | Emergency Department Note ---
Disposition Clinical Impression: Pseudomonas urinary tract infection Disposition: Admitted As Inpatient Condition: Fair Time of Disposition: 13:33 General Adult HPI - General Chief complaint: ED Urogenital-Male Stated complaint: possible uti Time Seen by Provider: 06/09/19 13:09 - History of Present Illness Pain Scale: 0 - Related Data Home Medications Medication Instructions Recorded Confirmed Cholecalciferol (Vitamin D3) 2,000 unit PO DAILY 11/07/18 06/09/19 [Vitamin D3] Lisinopril [Zestril] 20 mg PO DAILY 11/07/18 06/09/19 Melatonin [Melatin] 3 mg PO HS PRN 11/07/18 06/09/19 Metoprolol XL (24 HR) Succ [Toprol 25 mg PO DAILY 11/07/18 06/09/19 Xl] Tamsulosin [Flomax] 0.4 mg PO DAILY 11/07/18 06/09/19 Cyanocobalamin (B-12) [Vitamin B12] 1,000 mcg PO DAILY 01/21/19 06/09/19 Ferrous Sulfate [Iron] 325 mg PO DAILY 01/21/19 06/09/19 Phenazopyridine [Pyridium] 100 mg PO TID PRN 01/21/19 06/09/19 Atorvastatin [Lipitor] 40 mg PO DAILY 02/04/19 06/09/19 Latanoprost [Xalatan] 1 drop LEFT EYE HS 02/04/19 06/09/19 Polyethylene Glycol 3350 17 gm PO DAILY PRN 02/04/19 06/09/19 [Natura-Lax] Acetaminophen [Tylenol] 650 mg PO Q4H PRN 04/23/19 06/09/19 Amlodipine Besylate 5 mg PO DAILY 04/23/19 06/09/19 Aspirin [Adult Aspirin Regimen] 81 mg PO QAM 04/23/19 06/09/19 Docusate Sodium [Dok] 100 mg PO DAILY PRN 04/23/19 06/09/19 Guaifenesin [Mucus ER] 600 mg PO Q12H PRN 04/23/19 06/09/19 Allergies Allergy/AdvReac Type Severity Reaction Status Date / Time No Known Allergies Allergy Verified 04/22/19 15:51 Past Medical History - Past Medical History Medical history: Reports: arthritis, atrial fibrillation, CHF, COPD, coronary artery disease, CVA Surgical history: Reports: pacemaker Psychiatric history: Reports: no psych history - Social History Smoking Status: Former smoker Smokeless Tobacco Status: No Alcohol use: Reports: none Drug use: Reports: none Physical Exam - General General appearance: alert, in no apparent distress Course Vital Signs Temperature 98.1 F 06/09/19 13:08 Pulse Rate 64 06/09/19 13:08 Respiratory Rate 16 06/09/19 13:08 Blood Pressure 143/65 06/09/19 13:08 O2 Sat by Pulse Oximetry 100 06/09/19 13:08 Temperature 98.1 F 06/09/19 13:08 Pulse Rate 64 06/09/19 13:08 Respiratory Rate 16 06/09/19 13:08 Blood Pressure 143/65 06/09/19 13:08 O2 Sat by Pulse Oximetry 100 06/09/19 13:08 Oxygen Delivery Oxygen Delivery Room Air Attestation Statement - Attestation Attestation: I have seen this patient with the resident physician, I have personally evaluated this patient. I had reviewed the chart and document dictation by the resident physician and aM in agreement with the information documented by the resident physician. Please see documentation by the resident physician for complete chart including past medical history, family medical history, review of systems, current history and physical and laboratory and imaging studies. I was present for all procedures, provided direct supervision for all procedures, was present for the entirety of all procedures and provided direct guidance during the procedures. Please see documentation by the resident physician for any procedures performed. I have reviewed all interpretations of EKGs, and reviewed all EKGs performed on patient's as well. I have also reviewed reports of imaging as provided by radiology. Patient presented to the emergency department from outside facility, for evaluation for UTI. He had outpatient labs, with a urine culture from 2 days ago that resulted today with multidrug resistant UTI with pseudomonas. The patient does endorse urinary symptoms of frequency and pain with urination. He denies any other symptoms of headache neck pain chest pain shortness breath dizziness weakness fevers chills or abdominal pain no flank pain or back pain. Vital signs showed no evidence of sepsis, no tachycardia and no hypotension no fever. Basic laboratory studies were ordered. Blood culture was ordered. Based upon urine culture sensitivities, he was given IV cefepime. There is no oral anabiotic that is available to treat this at this time, he will be given IV cefepime admitted to the hospital for further evaluation and management, with consideration of possible PICC line or other recommendations to be provided by infectious disease for pseudomonas UTI with greater than 100,000 cultures in a male with symptoms.
[2019-06-09] MEDS ORDERED: Cefepime HCl 1,000 MG in Water for inj. (sterile) 10 ML IVP ONE (13:43)
[2019-06-09 13:44] LABS: Basophils % 0.4 %; Eosinophils # 0.3 K/mcL (0.0-0.6); Eosinophils % 3.2 %; Hemoglobin 14.7 g/dL (12.9-16.9); Immature Granulocytes % 0.4 % (0-4); Lymphocytes # 1.6 K/mcL (0.6-4.6); Lymphocytes % 19.3 %; Mean Corpuscular Hemoglobin 29.9 pg (28.0-33.3); Mean Corpuscular Volume 93.5 fL (83.0-100.0); Mean Platelet Volume 9.4 fL (9.4-12.4); Monocytes # 0.9 K/mcL (0.0-1.3); Monocytes % 11.2 %; Neutrophils # 5.3 K/mcL (1.6-8.9); Platelet Count 277 K/mcL (140-400); Red Blood Count 4.92 M/mcL (4.19-5.50); Red Cell Distribution Width 14.5 % (11.5-14.5); Segmented Neutrophils % 65.5 %; White Blood Count 8.1 K/mcL (4.3-11.1)
[2019-06-09 13:51] LABS: Bilirubin,Urine Negative (Negative); Blood,Urine Small (Negative); Clarity,Urine Cloudy (Clear); Color,Urine Yellow (Yellow); Glucose,Urine (UA) Normal (Normal); Ketones,Urine Negative (Negative); Leukocyte Esterase,Urine Large (Negative); Nitrite,Urine Positive (Negative); Protein,Urine 30 mg/dL (Neg-Trace); Specific Gravity,Urine 1.018 (1.010-1.025); Urobilinogen,Urine Normal (Normal)
[2019-06-09 13:54] LABS: Bacteria,Urine Few per hpf (None-Few); Hyaline Casts,Urine None Seen per lpf (None-Few); Squamous Epithelial Cell,Urine None Seen per lpf (None-Few); WBC,Urine TNTC per hpf (0-3)
[2019-06-09 14:11] LABS: BUN/Creatinine Ratio 17 (6-26); Blood Urea Nitrogen 19 mg/dL (8-23); Calcium 9.5 mg/dL (8.6-10.3); Carbon Dioxide 29 mEq/L (23-29); Chloride 104 mEq/L (98-107); Glucose 125 mg/dL (70-105); Osmolality,Calculated 294 (280-300); Potassium 4.1 mEq/L (3.5-5.1); Sodium 140 mEq/L (136-145); eGFR For African Americans > 60 (> 60); eGFR For Non-African Americans > 60 (> 60)
--- NOTE | 2019-06-09 15:12 | Internal Med History&Physical ---
<Itzel Frausto S - Last Filed: 06/09/19 15:48> Date of Encounter: 06/09/19 Time of Encounter: 16:07 Internal Medicine - H&P: HPI Chief complaint: MDR pseudomonas UTI Admitted From: Long-term Nursing Facility Plans for Post Hospital Care: Transfer Residential Facility History of present illness: Mr. Sánchez is a 84 year old male who presented to the ED from [facility] with complaints of UTI. PMH significant for recurrent MDR pseudomonas UTI, dementia, A. fib, CHF, COPD, CAD, CVA, , HTN, HLD. Patient was previous to being treated outpatient for UTI, outpatient urine culture shows Pseudomonas sensitive to cefepime, Zosyn, tobramycin, and gentamicin. Has previously been successfully treated with IV antibiotics. Unsure if he is on antibiotics at the moment, patient does not recall, not listed on home medications. At this time, patient continues to be symptomatic, was previously complaining of increased urinary frequency and dysuria. He denied these symptoms upon requestioning. He is able to make urine, was able to give a sample for urine culture in ED. Also admits to constipation for 1 week. Denies changes in appetite. Denies fever, chills, diaphoresis, chest pain, cough, shortness of breath, palpitations, abdominal pain, flank pain, N/V/D, blood in urine. Patient denies ever having an indwelling Mukherjee catheter. Past Med Surg Social Fam HX - Past Medical History Medical history: arthritis, atrial fibrillation, CHF, COPD, coronary artery disease, CVA Psychiatric history: no psych history - Past Surgical History Surgical History: pacemaker - Social History Smoking Status: Former smoker Smokeless Tobacco Status: No Alcohol use: none Drug use: none - Family History Father Adopted: No Family Member Ethnicity: Non- Living Status: Hx Family Cardiac Disorders: No Hx Family Respiratory Disorders: No Hx Family Cancer: No Hx Family GI Disorders: No Hx Family Endocrine Disorder: No Hx Family Neuromuscular Disorders: No Hx Family Neurologic Disorders: No Hx Family Autoimmune Disorders: No Mother Family Member Ethnicity: Non- Living Status: Hx Family Cardiac Disorders: No Hx Family Respiratory Disorders: No Hx Family Cancer: No Hx Family GI Disorders: No Hx Family Endocrine Disorder: Yes (grandmother had diabetes) Hx Family Neuromuscular Disorders: No Hx Family Neurologic Disorders: No Hx Family Autoimmune Disorders: No Brother Family Member Ethnicity: Non- Living Status: Hx Family Cardiac Disorders: Yes (CAD, [place]) Internal Medicine - H&P: Meds Cholecalciferol (Vitamin D3) [Vitamin D3] 2,000 unit PO DAILY 11/07/18 [History] Lisinopril [Zestril] 20 mg PO DAILY 11/07/18 [History] Melatonin [Melatin] 3 mg PO HS PRN 11/07/18 [History] Metoprolol XL (24 HR) Succ [Toprol Xl] 25 mg PO DAILY 11/07/18 [History] Tamsulosin [Flomax] 0.4 mg PO DAILY 11/07/18 [History] Cyanocobalamin (B-12) [Vitamin B12] 1,000 mcg PO DAILY 01/21/19 [History] Ferrous Sulfate [Iron] 325 mg PO DAILY 01/21/19 [History] Phenazopyridine [Pyridium] 100 mg PO TID PRN 01/21/19 [History] Atorvastatin [Lipitor] 40 mg PO DAILY 02/04/19 [History] Latanoprost [Xalatan] 1 drop LEFT EYE HS 02/04/19 [History] Polyethylene Glycol 3350 [Natura-Lax] 17 gm PO DAILY PRN 02/04/19 [History] Acetaminophen [Tylenol] 650 mg PO Q4H PRN 04/23/19 [History] Amlodipine Besylate 5 mg PO DAILY 04/23/19 [History] Aspirin [Adult Aspirin Regimen] 81 mg PO QAM 04/23/19 [History] Docusate Sodium [Dok] 100 mg PO DAILY PRN 04/23/19 [History] Guaifenesin [Mucus ER] 600 mg PO Q12H PRN 04/23/19 [History] Famotidine [Heartburn Prevention] 20 mg PO PRN PRN 06/09/19 [History] Megestrol Acetate [Megace] 400 mg PO DAILY 06/09/19 [History] Oxybutynin [Ditropan] 5 mg PO TID PRN 06/09/19 [History] Allergy/AdvReac Type Severity Reaction Status Date / Time No Known Allergies Allergy Verified 04/22/19 15:51 All Systems PM: A 10-system review of systems was performed and is negative for pertinent findings except as documented above in the HPI. - Constitutional Constitutional: no chills, no fever(s), no night sweats - Cardiovascular Cardiovascular ROS IM: no chest pain, no diaphoresis, no dyspnea, no lightheadedness, no palpitations, no syncope - Respiratory Respiratory: no cough, no dyspnea, no wheezing, no excessive phlegm production - Gastrointestinal Gastrointestinal: no abdominal pain, no diarrhea, no hematemesis, no hematochezia, no melena, no nausea, no vomiting - Genitourinary Genitourinary ROS male: as per HPI, dysuria, urinary frequency - Psychiatric Psychiatric: as per HPI - Constitutional Vitals: Temp Pulse Resp BP Pulse Ox 98.1 F 60 16 128/65 99 06/09/19 13:08 06/09/19 13:53 06/09/19 13:53 06/09/19 13:53 06/09/19 13:53 General appearance: Present: cooperative, A&O X 3, pleasant, no acute distress Exam: Constitutional: alert, oriented, in no acute distress, oriented X 3, well nourished, well-developed Head: normocephalic, atraumatic Heart: normal, regular rate and rhythm, no murmurs, S1, S2 normal Lungs: clear to auscultation, no wheezes, rales, rhonchi Abdomen: soft, nontender, nondistended, no masses palpable, bowel sounds present and normal, no hepatosplenomegaly, no guarding or rigidity, no CVA tenderness Extremities: no clubbing, cyanosis, bilateral LE edema (no pitting), pulses +3/4 in all 4 extremities Skin: dry, intact, incision sites are clean, dry, intact, without concerning discharge Psych: alert, oriented, cooperative with exam, good eye contact, speech clear, has short-term memory loss at baseline - Head Head exam: Present: atraumatic, normocephalic - Respiratory Respiratory exam: Present: CTAB. Absent: accessory muscle use, rales, rhonchi, wheezes - Cardiovascular Cardiovascular exam: Present: RRR, +S1, +S2. Absent: diastolic murmur, gallop, rubs, systolic murmur - GI/Abdominal GI/Abdominal exam: Present: normal bowel sounds, soft, no peritoneal signs. Absent: distended, tenderness - Extremities Exam Extremities exam: Present: warm, radial pulses palpable and symmetrical. Absent: calf tenderness, cyanotic, pedal edema - Neurological Exam Neurological exam: Present: alert, oriented X3 - Psychiatric Psychiatric exam: Present: normal affect, normal mood - Skin Skin exam: Present: dry, intact, warm Internal Med - H&P Results - Labs CBC & Chem 7: 06/09/19 13:30 06/09/19 13:30 Labs: Short CBC 06/09/19 06/09/19 06/09/19 Range/Units 13:30 13:30 13:40 WBC 8.1 (4.3-11.1) K/mcL RBC 4.92 (4.19-5.50) M/mcL Hgb 14.7 (12.9-16.9) g/dL Hct 46.0 (37.5-50.1) % MCV 93.5 (83.0-100.0) fL MCH 29.9 (28.0-33.3) pg MCHC 32.0 (31.6-35.5) g/dL RDW 14.5 (11.5-14.5) % Plt Count 277 (140-400) K/mcL MPV 9.4 (9.4-12.4) fL Immature Gran % 0.4 (0-4) % Seg Neutrophils % 65.5 % Lymphocytes % 19.3 % Monocytes % 11.2 % Eosinophils % 3.2 % Basophils % 0.4 % Neutrophils # 5.3 (1.6-8.9) K/mcL Lymphocytes # 1.6 (0.6-4.6) K/mcL Monocytes # 0.9 (0.0-1.3) K/mcL Eosinophils # 0.3 (0.0-0.6) K/mcL Basophils # 0.0 (0.0-0.2) K/mcL Sodium 140 (136-145) mEq/L Potassium 4.1 (3.5-5.1) mEq/L Chloride 104 (98-107) mEq/L Carbon Dioxide 29 (23-29) mEq/L BUN 19 (8-23) mg/dL Creatinine 1.15 (0.70-1.30) mg/dL Est GFR ( Amer) > 60 (> 60) Est GFR (Non-Af Amer) > 60 (> 60) BUN/Creatinine Ratio 17 (6-26) Glucose 125 H (70-105) mg/dL Calculated Osmolality 294 (280-300) Calcium 9.5 (8.6-10.3) mg/dL Urine Color Yellow (Yellow) Urine Clarity Cloudy A (Clear) Urine pH 6.0 (5.0-8.0) pH Units Ur Specific [place] 1.018 (1.010-1.025) Urine Protein 30 H (Neg-Trace) mg/dL Urine Glucose (UA) Normal (Normal) mg/dL Urine Ketones Negative (Negative) mg/dL Urine Blood Small H (Negative) Urine Nitrite Positive A (Negative) Urine Bilirubin Negative (Negative) Urine Urobilinogen Normal (Normal) mg/dL Ur Leukocyte Esterase Large H (Negative) Urine Microscopic RBC 5-15 H (0-3) per hpf Urine Microscopic WBC TNTC H (0-3) per hpf Ur Squamous Epith Cells None Seen (None-Few) per lpf Urine Bacteria Few (None-Few) per hpf Hyaline Casts None Seen (None-Few) per lpf Ur Culture Indicated? YES A (NO) BMP 06/09/19 13:30 Sodium 140 Potassium 4.1 Chloride 104 Carbon Dioxide 29 BUN 19 Creatinine 1.15 Glucose 125 H Calcium 9.5 Urine 06/09/19 Range/Units 13:40 Urine Color Yellow (Yellow) Urine Clarity Cloudy A (Clear) Urine pH 6.0 (5.0-8.0) pH Units Ur Specific [place] 1.018 (1.010-1.025) Urine Protein 30 H (Neg-Trace) mg/dL Urine Glucose (UA) Normal (Normal) mg/dL - Assessment and Plan (1) Pseudomonas urinary tract infection Current Visit: Yes Status: Acute Assessment and plan: - Admitted due to ongoing symptoms of dysuria and urinary frequency - History of recurrent MDR pseudomonas, has been successfully treated with IV antibiotics in the past - Afebrile, WBC 8.1 - UA positive - Urine culture performed outpatient: Pseudomonas, sensitive to IV cefepime - Started on IV cefepime 1 g - Will likely need further IV antibiotic treatment, we will consider placement of PICC line tomorrow - Will consider ID consult tomorrow (2) Recurrent UTI (urinary tract infection) Current Visit: Yes Status: Acute Assessment and plan: - Admitted due to ongoing symptoms of dysuria and urinary frequency - History of recurrent MDR pseudomonas, has been successfully treated with IV antibiotics in the past - Afebrile, WBC 8.1 - UA positive - Urine culture performed outpatient: Pseudomonas, sensitive to IV cefepime - Started on IV cefepime 1 g - Will likely need further IV antibiotic treatment, we will consider placement of PICC line tomorrow - Will consider ID consult tomorrow (3) History of short term memory loss Current Visit: Yes Status: Chronic Assessment and plan: - 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 - Currently at baseline (4) Atrial fibrillation Current Visit: Yes Status: Chronic Assessment and plan: - History of atrial fibrillation - Continue home medications - Continue to Monitor Qualifiers: Atrial fibrillation type: chronic Qualified Code(s): I48.2 - Chronic atrial fibrillation (5) Hypertension Current Visit: Yes Status: Chronic Assessment and plan: - History of hypertension: Home lisinopril 20, Toprol 25 - Continue home medications Qualifiers: Hypertension type: essential hypertension Qualified Code(s): I10 - Essential (primary) hypertension (6) CVA (cerebral vascular accident) Current Visit: Yes Status: Chronic Assessment and plan: - History of CVA - Has baseline short-term memory loss - Currently at baseline - continue home medications Qualifiers: CVA mechanism: unspecified Qualified Code(s): I63.9 - Cerebral infarction, unspecified - Time Spent With Patient Total time spent is greater than 50% in coordination of care (as documented) at patient's floor/unit and/or counseling patient: <Juan Carlos Miramontes - Last Filed: 06/09/19 18:01> Date of Encounter: 06/09/19 Internal Medicine - H&P: HPI History of present illness: Mr. Sánchez is a 84 year old male All Systems PM: A 10-system review of systems was performed and is negative for pertinent findings except as documented above in the HPI. - Constitutional Vitals: Temp Pulse Resp BP Pulse Ox 98.1 F 57 16 133/71 100 06/09/19 13:08 06/09/19 16:17 06/09/19 16:17 06/09/19 16:17 06/09/19 16:17 Internal Med - H&P Results - Labs CBC & Chem 7: 06/09/19 13:30 06/09/19 13:30 Labs: Short CBC 06/09/19 Range/Units 13:30 WBC 8.1 (4.3-11.1) K/mcL Hgb 14.7 (12.9-16.9) g/dL Hct 46.0 (37.5-50.1) % Plt Count 277 (140-400) K/mcL Neutrophils # 5.3 (1.6-8.9) K/mcL BMP 06/09/19 13:30 Sodium 140 Potassium 4.1 Chloride 104 Carbon Dioxide 29 BUN 19 Creatinine 1.15 Glucose 125 H Calcium 9.5 Urine 06/09/19 Range/Units 13:40 Urine Color Yellow (Yellow) Urine Clarity Cloudy A (Clear) Urine pH 6.0 (5.0-8.0) pH Units Ur Specific [place] 1.018 (1.010-1.025) Urine Protein 30 H (Neg-Trace) mg/dL Urine Glucose (UA) Normal (Normal) mg/dL - Assessment and Plan (1) Urinary tract infection Current Visit: No Status: Acute Qualifiers: Urinary tract infection type: acute cystitis Hematuria presence: with hematuria Qualified Code(s): N30.01 - Acute cystitis with hematuria (2) Pseudomonas urinary tract infection Current Visit: Yes Status: Acute (3) CHF (congestive heart failure) Current Visit: Yes Status: Chronic Qualifiers: Heart failure type: systolic Heart failure chronicity: chronic Qualified Code(s): I50.22 - Chronic systolic (congestive) heart failure (4) Atrial fibrillation Current Visit: Yes Status: Chronic Qualifiers: Atrial fibrillation type: chronic Qualified Code(s): I48.2 - Chronic atrial fibrillation (5) Dementia Current Visit: Yes Status: Acute Qualifiers: Dementia type: Alzheimer's disease Alzheimer's disease onset: unspecified onset Dementia behavioral disturbance: without behavioral disturbance Qualified Code(s): G30.9 - Alzheimer's disease, unspecified; F02.80 - Dementia in other diseases classified elsewhere without behavioral disturbance (6) Hypertension Current Visit: Yes Status: Chronic Qualifiers: Hypertension type: essential hypertension Qualified Code(s): I10 - Essential (primary) hypertension (7) Aortic stenosis Current Visit: No Status: Chronic Qualifiers: Cardiac valve disease etiology: nonrheumatic Qualified Code(s): I35.0 - Nonrheumatic aortic (valve) stenosis (8) CAD (coronary artery disease) Current Visit: No Status: Chronic Qualifiers: Coronary Disease-Associated Artery/Lesion type: [place] artery [place] vs. transplanted heart: [place] heart Associated angina: without angina Qualified Code(s): I25.10 - Atherosclerotic heart disease of [place] coronary artery without angina pectoris - Time Spent With Patient Total time spent is greater than 50% in coordination of care (as documented) at patient's floor/unit and/or counseling patient: - Attending Attestation I examined this patient and my medical decision-making was reviewed with the Resident Physician on 06/09/19. I agree with the documented findings, disposition and treatment plan as described except to the extent set forth below. Mr Sánchez is 84 y/o male with hx of multiple UTIs with PSDA - sensitive only to IV abx brought to ED due to urinary symptoms. Recent cx with same PSDA. He is very poor historian and has poor short term memory. Denies issues at this time. Exam: Alert. Comfortable. NC. EOMI. Mucus membranes dry. Neck supple. Heart irreg and jitendra - systolic murmur heard at apex. Lungs clear. Abd soft and tender suprapubic area. No peritoneal signs. No edema. Pulses palpable. Moves all extremities. Very [place]. No rash. Plan: IV Cefepime. Will try to make arrangements to complete again outpatient. Check PVR. Continue home meds.
[2019-06-09] MEDS ORDERED: Naloxone 0.4 MG/ML INJ IVP PRN (15:33)
[2019-06-09] MEDS ORDERED: traMADol 50 MG TABLET PO PRN (15:33)
[2019-06-09] MEDS ORDERED: Acetaminophen 325 MG TABLET PO PRN ×2 (15:33→15:38)
[2019-06-09] MEDS ORDERED: Melatonin 3 MG TABLET PO PRN (15:38)
[2019-06-09] MEDS: Cefepime HCl 1,000 MG in Water for inj. (sterile) 10 ML IVP SCH (22:13)
[2019-06-09] MEDS: Latanoprost 2.5 ML BOTTLE LEFT EYE SCH (23:29)
[2019-06-10 05:28] LABS: Basophils % 0.4 %; Eosinophils # 0.4 K/mcL (0.0-0.6); Eosinophils % 5.4 %; Hematocrit 46.7 % (37.5-50.1); Hemoglobin 14.9 g/dL (12.9-16.9); Immature Granulocytes % 0.6 % (0-4); Lymphocytes # 1.6 K/mcL (0.6-4.6); Mean Corpuscular HGB Conc 31.9 g/dL (31.6-35.5); Mean Corpuscular Hemoglobin 29.6 pg (28.0-33.3); Mean Corpuscular Volume 92.8 fL (83.0-100.0); Mean Platelet Volume 9.9 fL (9.4-12.4); Monocytes # 0.9 K/mcL (0.0-1.3); Neutrophils # 4.1 K/mcL (1.6-8.9); Platelet Count 271 K/mcL (140-400); Red Blood Count 5.03 M/mcL (4.19-5.50); Red Cell Distribution Width 14.3 % (11.5-14.5); Segmented Neutrophils % 58.6 %; White Blood Count 7.1 K/mcL (4.3-11.1)
[2019-06-10 05:54] LABS: BUN/Creatinine Ratio 21 (6-26); Blood Urea Nitrogen 18 mg/dL (8-23); Calcium 9.4 mg/dL (8.6-10.3); Carbon Dioxide 24 mEq/L (23-29); Chloride 106 mEq/L (98-107); Glucose 79 mg/dL (70-105); Osmolality,Calculated 295 (280-300); Potassium 3.8 mEq/L (3.5-5.1); Sodium 142 mEq/L (136-145); eGFR For African Americans > 60 (> 60); eGFR For Non-African Americans > 60 (> 60)
[2019-06-10] MEDS: Cefepime HCl 1,000 MG in Water for inj. (sterile) 10 ML IVP SCH ×2 (08:40→22:27)
[2019-06-10] MEDS: Megestrol Acetate 400 MG/10 ML UDC PO SCH (08:40)
[2019-06-10] MEDS: Lisinopril 20 MG TABLET PO SCH (08:41)
[2019-06-10] MEDS: Aspirin Enteric Coated 81 MG Tablet PO SCH (08:41)
[2019-06-10] MEDS: Cholecalciferol (D-3) 1,000 UNIT (25MCG) TABLET PO SCH (08:41)
[2019-06-10] MEDS: amLODIPine 5 MG TABLET PO SCH (08:41)
[2019-06-10] MEDS: Cyanocobalamin (B-12) 1,000 MCG TABLET PO SCH (08:41)
[2019-06-10] MEDS: Metoprolol XL (24 HR) Succ 25 MG TAB.ER.24H PO SCH (08:41)
[2019-06-10] MEDS ORDERED: Famotidine 20 MG TABLET PO PRN (09:00)
--- NOTE | 2019-06-10 15:06 | Internal Med Progress Note ---
<Juan Carlos Miramontes - Last Filed: 06/10/19 15:15> Hospitalist Progress Note - Encounter Date of Encounter: 06/10/19 - Exam Vitals: Temp Pulse Resp BP Pulse Ox 97.4 F L 59 14 130/76 97 06/10/19 14:39 06/10/19 14:39 06/10/19 14:39 06/10/19 14:39 06/10/19 14:39 - Assessment and Plan (1) Urinary tract infection Current Visit: No Status: Acute (2) Pseudomonas urinary tract infection Current Visit: Yes Status: Acute (3) CHF (congestive heart failure) Current Visit: Yes Status: Chronic (4) Atrial fibrillation Current Visit: Yes Status: Chronic (5) Dementia Current Visit: Yes Status: Acute (6) Hypertension Current Visit: Yes Status: Chronic (7) Aortic stenosis Current Visit: No Status: Chronic (8) CAD (coronary artery disease) Current Visit: No Status: Chronic - Time Spent with Patient Total time spent is greater than 50% in coordination of care (as documented) at patient's floor/unit and/or counseling patient: Internal Medicine: Result - Labs CBC & Chem 7: 06/10/19 04:15 06/10/19 04:15 Labs: Short CBC 06/10/19 Range/Units 04:15 WBC 7.1 (4.3-11.1) K/mcL Hgb 14.9 (12.9-16.9) g/dL Hct 46.7 (37.5-50.1) % Plt Count 271 (140-400) K/mcL Neutrophils # 4.1 (1.6-8.9) K/mcL BMP 06/10/19 04:15 Sodium 142 Potassium 3.8 Chloride 106 Carbon Dioxide 24 BUN 18 Creatinine 0.84 Glucose 79 Calcium 9.4 Consult Discharge Plan - Plan Referrals: NONE,PCP [Primary Care Provider] - - Attending Attestation I examined this patient and my medical decision-making was reviewed with the Resident Physician on 06/10/19. I agree with the documented findings, disposition and treatment plan as described except to the extent set forth below. Mr Sánchez is currently admitted for UTI - sensitive only to IV abx. He remains moderate to high risk due to potential for worsening clinical status. Mr Sánchez is doing OK. No fever or chills. No CP or SOB. Very [place]. Exam: Alert Comfortable. NC. EOMI. Mucus membranes dry. Heart not tachy. No wheeze. Abd soft. No edema No rash. Moves all extremities Plan: Continue IV Cefepime. D/C planning - need 2 weeks of med. <Itzel Frausto - Last Filed: 06/10/19 15:50> Hospitalist Progress Note - Encounter Date of Encounter: 06/10/19 Time of Encounter: 15:50 - Subjective Interval History: Patient was seen and examined at bedside. Currently complaining of some burning with urination, unchanged from before. States that he is still able to void, had soiled himself earlier in the morning. Is a little bit frustrated and wants to go home but is cooperative with care. Very hard of hearing. States that he does not feel any better than yesterday. Denies fever, chills, diaphoresis, chest pain, cough, shortness of breath, palpitations, abdominal pain, flank pain, N/V/D, urinary urgency/frequency, blood in urine. - Exam Vitals: Temp Pulse Resp BP Pulse Ox 97.4 F L 59 14 130/76 97 06/10/19 14:39 06/10/19 14:39 06/10/19 14:39 06/10/19 14:39 06/10/19 14:39 Exam: Constitutional: alert, oriented, in no acute distress, oriented X 3, well nourished, well-developed Head: normocephalic, atraumatic Heart: normal, regular rate and rhythm, no murmurs, S1, S2 normal Lungs: clear to auscultation, no wheezes, rales, rhonchi Abdomen: soft, nontender, nondistended, no masses palpable, bowel sounds present and normal, no hepatosplenomegaly, no guarding or rigidity, no CVA tenderness Extremities: no clubbing, cyanosis, bilateral LE edema (no pitting), pulses +3/4 in all 4 extremities Skin: dry, intact, incision sites are clean, dry, intact, without concerning discharge Psych: alert, oriented, cooperative with exam, good eye contact, speech clear, has short-term memory loss at baseline - Assessment and Plan (1) Pseudomonas urinary tract infection Current Visit: Yes Status: Acute Assessment and Plan: - Admitted due to ongoing symptoms of dysuria and urinary frequency - History of recurrent MDR pseudomonas, has been successfully treated with IV antibiotics in the past - Afebrile, WBC 7.1 - UA positive - Urine culture performed outpatient: Pseudomonas, sensitive to IV cefepime - Repeat urine culture, pending results - Bladder scan showed total volume of 50 mL, patient is voiding on his own. Suprapubic firmness resolved at this time. Continue to monitor. - Started on IV cefepime 1 g - Will require further IV antibiotic treatment for 2 weeks - PICC line consult placed - Patient is okay to discharge, pending placement at SNF as his current assisted living cannot administer IV antibiotics (2) Recurrent UTI (urinary tract infection) Current Visit: Yes Status: Acute Assessment and Plan: - Admitted due to ongoing symptoms of dysuria and urinary frequency - History of recurrent MDR pseudomonas, has been successfully treated with IV antibiotics in the past - Afebrile, WBC 7.1 - UA positive - Urine culture performed outpatient: Pseudomonas, sensitive to IV cefepime - Repeat urine culture, pending results - Bladder scan showed total volume of 50 mL, patient is voiding on his own. Suprapubic firmness resolved at this time. Continue to monitor. 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 - Currently at baseline (4) Atrial fibrillation Current Visit: Yes Status: Chronic Assessment and Plan: - History of atrial fibrillation - Continue home medications - Continue to Monitor (5) Hypertension Current Visit: Yes Status: Chronic Assessment and Plan: - History of hypertension: Home lisinopril 20, Toprol 25 - Continue home medications (6) CVA (cerebral vascular accident) Current Visit: Yes Status: Chronic Assessment and Plan: - History of CVA - Has baseline short-term memory loss - Currently at baseline - continue home medications - Time Spent with Patient Total time spent is greater than 50% in coordination of care (as documented) at patient's floor/unit and/or counseling patient: Internal Medicine: Result - Labs CBC & Chem 7: 06/10/19 04:15 06/10/19 04:15 Labs: Short CBC 06/10/19 Range/Units 04:15 WBC 7.1 (4.3-11.1) K/mcL Hgb 14.9 (12.9-16.9) g/dL Hct 46.7 (37.5-50.1) % Plt Count 271 (140-400) K/mcL Neutrophils # 4.1 (1.6-8.9) K/mcL BMP 06/10/19 04:15 Sodium 142 Potassium 3.8 Chloride 106 Carbon Dioxide 24 BUN 18 Creatinine 0.84 Glucose 79 Calcium 9.4 <Juan Carlos Miramontes - Last Filed: 06/10/19 15:15> (1) Urinary tract infection Qualifiers: Urinary tract infection type: acute cystitis Hematuria presence: with hematuria Qualified Code(s): N30.01 - Acute cystitis with hematuria (3) CHF (congestive heart failure) Qualifiers: Heart failure type: systolic Heart failure chronicity: chronic Qualified Code(s): I50.22 - Chronic systolic (congestive) heart failure (4) Atrial fibrillation Qualifiers: Atrial fibrillation type: chronic Qualified Code(s): I48.2 - Chronic atrial fibrillation (5) Dementia Qualifiers: Dementia type: Alzheimer's disease Alzheimer's disease onset: unspecified onset Dementia behavioral disturbance: without behavioral disturbance Qualified Code(s): G30.9 - Alzheimer's disease, unspecified; F02.80 - Dementia in other diseases classified elsewhere without behavioral disturbance (6) Hypertension Qualifiers: Hypertension type: essential hypertension Qualified Code(s): I10 - Essential (primary) hypertension (7) Aortic stenosis Qualifiers: Cardiac valve disease etiology: nonrheumatic Qualified Code(s): I35.0 - Nonrheumatic aortic (valve) stenosis (8) CAD (coronary artery disease) Qualifiers: Coronary Disease-Associated Artery/Lesion type: [place] artery [place] vs. transplanted heart: [place] heart Associated angina: without angina Qualified Code(s): I25.10 - Atherosclerotic heart disease of [place] coronary artery without angina pectoris <Itzel Frausto S - Last Filed: 06/10/19 15:50> (4) Atrial fibrillation Qualifiers: Atrial fibrillation type: chronic Qualified Code(s): I48.2 - Chronic atrial fibrillation (5) Hypertension Qualifiers: Hypertension type: essential hypertension Qualified Code(s): I10 - Essential (primary) hypertension (6) CVA (cerebral vascular accident) Qualifiers: CVA mechanism: unspecified Qualified Code(s): I63.9 - Cerebral infarction, unspecified
--- NOTE | 2019-06-10 16:55 | Discharge Summary ---
<Itzel Frausto S - Last Filed: 06/11/19 12:58> - NOTES TO OUTPATIENT PROVIDER Notes to Outpatient Provider: Mr. Sánchez is a 84M who was transferred from assisted living and admitted for MDR pseudomonas UTI. He has hx of recurrent MDR pseudomonas that has previously been successfully treated with IV antibiotics. Urine culture from previous episode of UTI showed Pseudomonas sensitive to IV antibiotics, including cefepime. Patient was being treated outpatient, but documents do not specify outpatient course of treatment. Patient continued to have burning with urination and was admitted for further care. He was started on IV cefepime 1 g. His symptoms gradually improved. He was discharged to an extended care facility to finish 2 week course of IV cefepime 1 g. 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 Sánchez is a 84 year old male who was transferred from assisted living and admitted for MDR pseudomonas UTI. He has a history of recurrent multidrug resistant pseudomonas that has previously been successfully treated with IV antibiotics. Urine culture from previous episode of UTI showed Pseudomonas sensitive to IV antibiotics, including cefepime. Patient was being treated outpatient, but documents do not specify outpatient course of treatment. Patient continued to have burning with urination and was admitted for further care. He was started on IV cefepime 1 g. Repeat urine culture grew Pseudomonas sensitive to cefepime. His symptoms gradually improved. He was discharged to an extended care facility to finish 2 week course of IV cefepime 1 g. - Time Spent with Patient Total time spent providing and/or coordinating discharge services: - Discharge Medications Prescriptions: New Cefepime HCl [Maxipime] 1,000 mg IVPB Q12HR 14 Days vial Continued Tamsulosin [Flomax] 0.4 mg PO DAILY Metoprolol XL (24 HR) Succ [Toprol Xl] 25 mg PO DAILY Lisinopril [Zestril] 20 mg PO DAILY Cholecalciferol (Vitamin D3) [Vitamin D3] 2,000 unit PO DAILY Melatonin [Melatin] 3 mg PO HS PRN PRN Reason: Sleep Cyanocobalamin (B-12) [Vitamin B12] 1,000 mcg PO DAILY Ferrous Sulfate [Iron] 325 mg PO DAILY Phenazopyridine [Pyridium] 100 mg PO TID PRN PRN Reason: urinary irritation Atorvastatin [Lipitor] 40 mg PO DAILY Latanoprost [Xalatan] 1 drop LEFT EYE HS Polyethylene Glycol 3350 [Natura-Lax] 17 gm PO DAILY PRN PRN Reason: Constipation Acetaminophen [Tylenol] 650 mg PO Q4H PRN PRN Reason: PAIN/FEVER Amlodipine Besylate 5 mg PO DAILY Aspirin [Adult Aspirin Regimen] 81 mg PO QAM Guaifenesin [Mucus ER] 600 mg PO Q12H PRN PRN Reason: CHEST CONGESTION Docusate Sodium [Dok] 100 mg PO DAILY PRN PRN Reason: Constipation Oxybutynin [Ditropan] 5 mg PO TID PRN PRN Reason: See Comments Megestrol Acetate [Megace] 400 mg PO DAILY Famotidine [Heartburn Prevention] 20 mg PO PRN PRN PRN Reason: Heartburn Home Medications: Cholecalciferol (Vitamin D3) [Vitamin D3] 2,000 unit PO DAILY 11/07/18 [History] Lisinopril [Zestril] 20 mg PO DAILY 11/07/18 [History] Melatonin [Melatin] 3 mg PO HS PRN 11/07/18 [History] Metoprolol XL (24 HR) Succ [Toprol Xl] 25 mg PO DAILY 11/07/18 [History] Tamsulosin [Flomax] 0.4 mg PO DAILY 11/07/18 [History] Cyanocobalamin (B-12) [Vitamin B12] 1,000 mcg PO DAILY 01/21/19 [History] Ferrous Sulfate [Iron] 325 mg PO DAILY 01/21/19 [History] Phenazopyridine [Pyridium] 100 mg PO TID PRN 01/21/19 [History] Atorvastatin [Lipitor] 40 mg PO DAILY 02/04/19 [History] Latanoprost [Xalatan] 1 drop LEFT EYE HS 02/04/19 [History] Polyethylene Glycol 3350 [Natura-Lax] 17 gm PO DAILY PRN 02/04/19 [History] Acetaminophen [Tylenol] 650 mg PO Q4H PRN 04/23/19 [History] Amlodipine Besylate 5 mg PO DAILY 04/23/19 [History] Aspirin [Adult Aspirin Regimen] 81 mg PO QAM 04/23/19 [History] Docusate Sodium [Dok] 100 mg PO DAILY PRN 04/23/19 [History] Guaifenesin [Mucus ER] 600 mg PO Q12H PRN 04/23/19 [History] Famotidine [Heartburn Prevention] 20 mg PO PRN PRN 06/09/19 [History] Megestrol Acetate [Megace] 400 mg PO DAILY 06/09/19 [History] Oxybutynin [Ditropan] 5 mg PO TID PRN 06/09/19 [History] Cefepime HCl [Maxipime] 1,000 mg IVPB Q12HR 14 Days vial 06/10/19 [Rx] Allergies/Adverse Reactions: Allergy/AdvReac Type Severity Reaction Status Date / Time No Known Allergies Allergy Verified 04/22/19 15:51 Date of admission: 06/09/19 16:27 Primary care physician: PCP NONE Discharging clinician: Itzel Sellers Constitutional Vitals: Temp Pulse Resp BP Pulse Ox 97.4 F L 59 14 130/76 97 06/10/19 14:39 06/10/19 14:39 06/10/19 14:39 06/10/19 14:39 06/10/19 14:39 General appearance: Present: cooperative, A&O X 3, pleasant, no acute distress Exam: Constitutional: alert, oriented, in no acute distress, oriented X 3, well nourished, well-developed Head: normocephalic, atraumatic Heart: normal, regular rate and rhythm, no murmurs, S1, S2 normal Lungs: clear to auscultation, no wheezes, rales, rhonchi Abdomen: soft, nontender, nondistended, no masses palpable, bowel sounds present and normal, no hepatosplenomegaly, no suprapubic tenderness or firmness, no guarding or rigidity, no CVA tenderness Extremities: no clubbing, cyanosis, bilateral LE edema (no pitting), pulses +3/4 in all 4 extremities Skin: dry, intact, incision sites are clean, dry, intact, without concerning discharge Psych: alert, oriented, cooperative with exam, good eye contact, speech clear, has short-term memory loss at baseline - Patient Status Disposition: Transfer SNF Condition: Good Functional capacity at discharge: independent ambulation Overall status at discharge: patient is progressing back to baseline - Discharge Instructions Instructions: Urinary Tract Infection in Men (DC) Follow Up With: NONE,PCP [Primary Care Provider] - Additional Instructions: Please complete your two-week antibiotic course of IV cefepime 1 g. Please continue home medications as instructed. Please follow up with PCP regarding your recent hospital stay. Please return to the emergency department if you experience fevers, chills, chest pain, shortness of breath, blood in stool or urine, abdominal pain or any other concerning or worsening symptoms. - Diet and Activity Activity: increase activity as tolerated Diet: advance to your usual diet <Juan Carlos Miramontes - Last Filed: 06/11/19 14:04> Orders not resulted at time of discharge: Pending orders 06/09/19 13:30 Culture,Blood [BC] Stat Date of Encounter: 06/11/19 - Discharge Diagnosis (1) Urinary tract infection Status: Acute Qualifiers: Urinary tract infection type: acute cystitis Hematuria presence: with hematuria Qualified Code(s): N30.01 - Acute cystitis with hematuria (2) Pseudomonas urinary tract infection Status: Acute (3) CHF (congestive heart failure) Status: Chronic Qualifiers: Heart failure type: systolic Heart failure chronicity: chronic Qualified Code(s): I50.22 - Chronic systolic (congestive) heart failure (4) Atrial fibrillation Status: Chronic Qualifiers: Atrial fibrillation type: chronic Qualified Code(s): I48.2 - Chronic atrial fibrillation (5) Dementia Status: Acute Qualifiers: Dementia type: Alzheimer's disease Alzheimer's disease onset: unspecified onset Dementia behavioral disturbance: without behavioral disturbance Qualified Code(s): G30.9 - Alzheimer's disease, unspecified; F02.80 - Dementia in other diseases classified elsewhere without behavioral disturbance (6) Hypertension Status: Chronic Qualifiers: Hypertension type: essential hypertension Qualified Code(s): I10 - Essential (primary) hypertension (7) Aortic stenosis Status: Chronic Qualifiers: Cardiac valve disease etiology: nonrheumatic Qualified Code(s): I35.0 - Nonrheumatic aortic (valve) stenosis (8) CAD (coronary artery disease) Status: Chronic Qualifiers: Coronary Disease-Associated Artery/Lesion type: [place] artery [place] vs. transplanted heart: [place] heart Associated angina: without angina Qualified Code(s): I25.10 - Atherosclerotic heart disease of [place] coronary artery without angina pectoris Hospital course: Mr. Sánchez is a 84 year old male - Time Spent with Patient Total time spent providing and/or coordinating discharge services: Date of admission: 06/09/19 16:27 Primary care physician: PCP NONE - Constitutional Vitals: Temp Pulse Resp BP Pulse Ox 97.9 F 52 16 123/61 97 06/11/19 12:41 06/11/19 12:41 06/11/19 12:41 06/11/19 12:41 06/11/19 12:41 - Attending Attestation I examined this patient and my medical decision-making was reviewed with the Resident Physician on 06/11/19. I agree with the documented findings, disposition and treatment plan as described except to the extent set forth below. Mr Sánchez has been admitted for UTI - sensitive only to IV abx. He was started on Cefepime and symptoms improved. He will complete 2 week course at SNF. Exam: Alert. Comfortable. NC. Mucus membranes dry. EOMI. Neck supple. Heart not tachy. No wheeze. Moves all extremities. No rash. Plan: D/C to SNF to complete 2 weeks abx. D/C time 34min
[2019-06-10] MEDS: Latanoprost 2.5 ML BOTTLE LEFT EYE SCH ×2 (22:28→22:35)
[2019-06-11 04:44] LABS: Basophils % 0.4 %; Eosinophils # 0.5 K/mcL (0.0-0.6); Eosinophils % 6.7 %; Hematocrit 41.7 % (37.5-50.1); Hemoglobin 13.4 g/dL (12.9-16.9); Immature Granulocytes % 0.3 % (0-4); Lymphocytes # 1.8 K/mcL (0.6-4.6); Lymphocytes % 26.4 %; Mean Corpuscular HGB Conc 32.1 g/dL (31.6-35.5); Mean Corpuscular Hemoglobin 30.3 pg (28.0-33.3); Mean Corpuscular Volume 94.3 fL (83.0-100.0); Mean Platelet Volume 9.8 fL (9.4-12.4); Monocytes % 14.9 %; Neutrophils # 3.5 K/mcL (1.6-8.9); Platelet Count 252 K/mcL (140-400); Red Blood Count 4.42 M/mcL (4.19-5.50); Red Cell Distribution Width 13.9 % (11.5-14.5); Segmented Neutrophils % 51.3 %; White Blood Count 6.8 K/mcL (4.3-11.1)
--- NOTE | 2019-06-11 07:38 | Physician Discharge Referral ---
ExtendedCare Referral Info Transfer To: SNF Provider in Charge: Dr. Juan Carlos Miramontes Provider in Charge after Transfer: PCP Institutional Level of Care: Skilled - Diagnosis (1) Pseudomonas urinary tract infection Status: Acute (2) Recurrent UTI (urinary tract infection) Status: Acute (3) History of short term memory loss Status: Chronic (4) Atrial fibrillation Status: Chronic (5) Hypertension Status: Chronic (6) CVA (cerebral vascular accident) Status: Chronic - Transfer Medications Prescriptions: Cefepime HCl [Maxipime] 1,000 mg IVPB Q12HR 14 Days vial Home Medications: Cholecalciferol (Vitamin D3) [Vitamin D3] 2,000 unit PO DAILY 11/07/18 [History] Lisinopril [Zestril] 20 mg PO DAILY 11/07/18 [History] Melatonin [Melatin] 3 mg PO HS PRN 11/07/18 [History] Metoprolol XL (24 HR) Succ [Toprol Xl] 25 mg PO DAILY 11/07/18 [History] Tamsulosin [Flomax] 0.4 mg PO DAILY 11/07/18 [History] Cyanocobalamin (B-12) [Vitamin B12] 1,000 mcg PO DAILY 01/21/19 [History] Ferrous Sulfate [Iron] 325 mg PO DAILY 01/21/19 [History] Phenazopyridine [Pyridium] 100 mg PO TID PRN 01/21/19 [History] Atorvastatin [Lipitor] 40 mg PO DAILY 02/04/19 [History] Latanoprost [Xalatan] 1 drop LEFT EYE HS 02/04/19 [History] Polyethylene Glycol 3350 [Natura-Lax] 17 gm PO DAILY PRN 02/04/19 [History] Acetaminophen [Tylenol] 650 mg PO Q4H PRN 04/23/19 [History] Amlodipine Besylate 5 mg PO DAILY 04/23/19 [History] Aspirin [Adult Aspirin Regimen] 81 mg PO QAM 04/23/19 [History] Docusate Sodium [Dok] 100 mg PO DAILY PRN 04/23/19 [History] Guaifenesin [Mucus ER] 600 mg PO Q12H PRN 04/23/19 [History] Famotidine [Heartburn Prevention] 20 mg PO PRN PRN 06/09/19 [History] Megestrol Acetate [Megace] 400 mg PO DAILY 06/09/19 [History] Oxybutynin [Ditropan] 5 mg PO TID PRN 06/09/19 [History] Cefepime HCl [Maxipime] 1,000 mg IVPB Q12HR 14 Days vial 06/10/19 [Rx] Allergies/Adverse Reactions: Allergy/AdvReac Type Severity Reaction Status Date / Time No Known Allergies Allergy Verified 04/22/19 15:51 - Respiratory Orders Smoking Cessation: Smoking cessation has been advised. For more information, call the [place] Tobacco Quit Line at 9-175-HCIANOW. CERTIFICATION: I certify that the transfer of the above named patient to an Extended Care Facility is necessary for the continuing treatment of the diagnosis listed. The above information is true and accurate reflection of patient's current condition. Confidential - Redisclosure prohibited without a patient's written consent.
[2019-06-11] MEDS: Aspirin Enteric Coated 81 MG Tablet PO SCH (08:34)
[2019-06-11] MEDS: Lisinopril 20 MG TABLET PO SCH (08:34)
[2019-06-11] MEDS: amLODIPine 5 MG TABLET PO SCH (08:34)
[2019-06-11] MEDS: Cyanocobalamin (B-12) 1,000 MCG TABLET PO SCH (08:34)
[2019-06-11] MEDS: Cholecalciferol (D-3) 1,000 UNIT (25MCG) TABLET PO SCH (08:34)
[2019-06-11] MEDS: Metoprolol XL (24 HR) Succ 25 MG TAB.ER.24H PO SCH (08:35)
[2019-06-11] MEDS: Cefepime HCl 1,000 MG in Water for inj. (sterile) 10 ML IVP SCH (08:35)
[2019-06-11] MEDS: Megestrol Acetate 400 MG/10 ML UDC PO SCH (08:35)
[2019-06-11 09:31] LABS: Basophils % 0.5 %; Eosinophils # 0.4 K/mcL (0.0-0.6); Eosinophils % 5.2 %; Hematocrit 50.9 % (37.5-50.1); Immature Granulocytes % 0.4 % (0-4); Lymphocytes % 25.3 %; Mean Corpuscular HGB Conc 32.4 g/dL (31.6-35.5); Mean Corpuscular Hemoglobin 30.7 pg (28.0-33.3); Mean Corpuscular Volume 94.6 fL (83.0-100.0); Mean Platelet Volume 9.6 fL (9.4-12.4); Monocytes # 0.9 K/mcL (0.0-1.3); Monocytes % 11.3 %; Neutrophils # 4.5 K/mcL (1.6-8.9); Platelet Count 307 K/mcL (140-400); Red Blood Count 5.38 M/mcL (4.19-5.50); Red Cell Distribution Width 13.9 % (11.5-14.5); Segmented Neutrophils % 57.3 %; White Blood Count 7.9 K/mcL (4.3-11.1)
[2019-06-11 09:41] LABS: Hemoglobin 16.5 g/dL (12.9-16.9)
[2019-06-11 12:51] VITALS: BP 123/61
== END 2019-06-11 13:20 | DRG 690 ==
LOC: EMEROOARM 13:04 → SUATTDRO 16:27 → 3ANU 16:27
PROVIDERS: ADMIT Internal Medicine; ATTEND Internal Medicine